=== PATIENT | female | born 1935 | race Caucasian/White ===

== ENCOUNTER 2016-07-03 11:21 | Inpatient (IN) | payer MEDICARE, OTHER ==
[~2016-07-03] VITALS: Ht 172.7 cm; Wt 68.0 kg
[~2016-07-03 11:21] MED LIST: ALBU1.25 NEB; AMIO200T2 PO; AMIO200T7 PO; ASPI81TA2 PO; ATEN50TA PO; CIPR500T94 PO; CLOP75TA27 PO; ESOM20CA30 PO; FENO48TA16 PO; FERR-26 PO; FLUT1DIS3 IH; FURO-68 PO; HYDR-2666 PO; HYDR200T PO; IPRA3AMP NEB; ISOS30TA4 PO; ISOS60TA PO; METO25TA4 PO; PANT40TA3 PO; POTA20TA12 PO; PRAV20TA PO; PRAV40TA2 PO; PRED20TA PO; ROPI0.5T PO; TRYP30OI2 TP
[2016-07-03] MEDS ORDERED: IPRATRPIUM/ALBUTEROL 0.5/2.5MG 3 ML NEBU. ONE (12:05)
[2016-07-03 12:10] LABS: HCO3 ABG 23 mmol/L (21-28); PCO2 ABG 31 mmHg (35-46); PH ABG 7.49 (7.35-7.45); PO2 ABG 66 mmHg (65-108); SAT O2 ABG 92 % (92-99)
[2016-07-03] MEDS ORDERED: IPRATRPIUM/ALBUTEROL 0.5/2.5MG 3 ML NEBU. NEB ONE (12:15)
[2016-07-03] MEDS ORDERED: PREDNISONE 20 MG TABLET PO ONE (12:15)
--- NOTE | 2016-07-03 12:18 | RAD ---
EXAM: Chest, single view. HISTORY: Chest pain. COMPARISON: 06/26/2016. FINDINGS: A frontal view of the chest is obtained. There is partially consolidated infiltrate within the lateral left lung. A superimposed on diffuse increased interstitial opacity. There is no effusion or pneumothorax. The cardiac silhouette is upper normal in size, a component of which is due to portable technique. There are findings consistent with CABG. IMPRESSION: 1. Partially consolidated lateral left lung infiltrate. Follow-up to confirm resolution. 2. Diffuse increased interstitial opacity suggesting trace congestion superimposed on emphysema.
--- NOTE | 2016-07-03 12:21 | EKG ---
[facility] [address] [place] [address] Test Date: 2016-07-03 Test Time: 11:44:02 Pat Name: MARGO LYNN Department: Room: Gender: F Process Control Tech: : [id number] Requested By: JASE PALMER Order Number: [id number] Reading MD: Erlin River Measurements Intervals [place] Rate: 90 P: -34 TX: 152 QRS: -15 QRSD: 152 T: 20 QT: 414 QTc: 511 Interpretive Statements SR RBBB LEFT AXIS DEVIATION INFERIOR INFARCT Electronically Signed On 07-07-2016 10:33:52 S[employer]OTH [employer] RESURFACER by Erlin River
[2016-07-03 12:24] LABS: CALCIUM 8.4 mg/dL (8.5-10.1); CREATININE 0.9 mg/dL (0.6-1.0); GFR 60.4; POTASSIUM 4.2 mmol/L (3.5-5.1)
[2016-07-03 12:27] LABS: ALBUMIN 2.9 g/dL (3.4-5.0); DIRECT BILIRUBIN 0.5 mg/dL (0.0-0.2)
[2016-07-03] MEDS ORDERED: ONDANSETRON PF 4 MG/2 ML VIAL. IV PRN (12:45)
[2016-07-03 13:01] LABS: BASO # 0.1 x10^3/uL (0.0-0.2); BASO % 0 % (0-3); EOS % 0 % (0-3); HEMATOCRIT 33.6 % (36.0-47.0); LYMPH # 0.1 x10^3/uL (1.0-4.8); LYMPH % 1 % (24-48); MEAN CORPUSCULAR HEMOGLOBIN 21 pg (25-35); MEAN CORPUSCULAR HGB CONC 30 g/dL (31-37); MEAN CORPUSCULAR VOLUME 71 fL (79-100); MONO % 5 % (0-9); NEUT % 95 % (31-73); PLATELET COUNT 239 x10^3/uL (140-400); RED BLOOD COUNT 4.75 x10^6/uL (3.50-5.40); RED CELL DISTRIBUTION WIDTH 17.8 % (11.5-14.5); WHITE BLOOD COUNT 28.6 x10^3/uL (4.0-11.0)
[2016-07-03] MEDS ORDERED: PIP/TAZO PER PHARMACY MC PRN (13:15)
--- NOTE | 2016-07-03 13:24 | PHYS DOC ---
Past Medical History Past Medical History: Bronchitis, CHF, COPD, GERD, Hypertension, [place] Additional Past Medical Histor: EMPHYSEMA Past Surgical History: Appendectomy, Coronary Bypass Surgery, Other Additional Past Surgical Histo: carotid artery cleared out, cardiac stents 2013 , LEFT WRIST SX Alcohol Use: None Drug Use: None Adult General Chief Complaint Chief Complaint: DYSPNEA/RESPIRATOY DISTRESS HPI HPI 81-year-old female presenting to the emergency department today with difficulty breathing. She denies chest pain. Her shortness of breath started today. She was recently hospitalized proximally 4 days ago for COPD exacerbation. She denies nausea vomiting or diaphoresis. She denies productive sputum. Onset today Location lungs Duration intermittent Associated with a cough. Review of Systems Review of Systems ROS negative for chest pain abdominal pain nausea vomiting diaphoresis. All other review of systems is negative unless otherwise noted in history of present illness. Current Medications Current Medications Current Medications Medications (Trade) Dose Ordered Sig/Nancy Start Time Stop Time Status Last Admin Dose Admin Albuterol/ Ipratropium (Duoneb) 3 ml 1X ONCE 07/03/16 12:15 07/03/16 12:16 DC Prednisone (Prednisone) 50 mg 1X ONCE 07/03/16 12:15 07/03/16 12:16 DC 07/03/16 12:45 50 MG Allergies Allergies Allergies Coded Allergies Type Severity Reaction Last Updated Verified morphine Allergy Severe Hives-PREVIOUSLY TOLERATED VICODIN 08/20/14 Yes meperidine Allergy Intermediate Unknown 08/20/14 Yes DALTON Inhibitors Adverse Reaction Mild COUGH 05/07/16 Yes Physical Exam Physical Exam Constitutional: Well developed, well nourished, increased effort of breathing. Nontoxic. HENT: Normocephalic, atraumatic, bilateral external ears normal, oropharynx moist, no oral exudates, nose normal. Eyes: PERRLA, EOMI, conjunctiva normal, no discharge. [] Neck: Normal range of motion, no tenderness, supple, no stridor. Cardiovascular:Heart rate regular rhythm, no murmur [] Lungs & Thorax: Increased wheezing and crackles present bilaterally. Patient's work of breathing is increased. Abdomen: Bowel sounds normal, soft, no tenderness, no masses, no pulsatile masses. Skin: Warm, dry, no erythema, no rash. [] Back: No tenderness, no CVA tenderness. Extremities: No tenderness, no cyanosis, no clubbing, ROM intact, no edema. [] Neurologic: Alert and oriented X 3, normal motor function, normal sensory function, no focal deficits noted. Psychologic: Affect normal, judgement normal, mood normal. [] Current Patient Data Vital Signs Vital Signs Date Time Temp Pulse Resp B/P Pulse Ox O2 Delivery O2 Flow Rate FiO2 07/03/16 12:29 88 20 108/47 94 Nasal Cannula 6 07/03/16 11:27 99.8 99.8 Lab Values Laboratory Tests Test 07/03/16 11:35 07/03/16 12:06 Sodium Level 143mmol/L (136-145) Potassium Level 4.2mmol/L (3.5-5.1) Chloride Level 105mmol/L (98-107) Carbon Dioxide Level 25mmol/L (21-32) Anion Gap 13 (6-14) Blood Urea Nitrogen 28mg/dL (7-20) H Creatinine 0.9mg/dL (0.6-1.0) Estimated GFR (Cockcroft-Gault) 60.4 Glucose Level 104mg/dL (70-99) H Calcium Level 8.4mg/dL (8.5-10.1) L Total Bilirubin 1.0mg/dL (0.2-1.0) Direct Bilirubin 0.5mg/dL (0.0-0.2) H Aspartate Amino Transferase (AST) 59U/L (15-37) H Alanine Aminotransferase (ALT) 63U/L (14-59) H Alkaline Phosphatase 136U/L (46-116) H Troponin I Quantitative 0.088ng/mL (0.000-0.055) VL-Lbq-N-Type Natriuretic Peptide 47230hx/mL (0-449) H Total Protein 6.0g/dL (6.4-8.2) L Albumin 2.9g/dL (3.4-5.0) L Lipase 154U/L (73-393) O2 Saturation 92% (92-99) Arterial Blood pH 7.49 (7.35-7.45) H Arterial Blood pCO2 at Patient Temp 31mmHg (35-46) L Arterial Blood pO2 at Patient Temp 66mmHg (65-108) Arterial Blood HCO3 23mmol/L (21-28) Arterial Blood Base Excess 0mmol/L (-3-3) Laboratory Tests 07/03/16 11:35 EKG EKG [] EKG shows sinus rhythm with a regular rate. [place] is leftward with a right bundle-branch block present. Intervals show prolonged QRS and prolonged QTC. ST segments show appropriate repolarization from right bundle-branch block in lead V2 and V3. Radiology/Procedures Radiology/Procedures [] Chest x-ray shows left lower lung infiltrate. Course & Med Decision Making Course & Med Decision Making Pertinent Labs and Imaging studies reviewed. (See chart for details) 81-year-old female presenting to the emergency department with worsening shortness of breath today. On evaluation the patient had a low-grade temperature regular heart rate. Increased respiratory rate and effort. Increased oxygen requirement. Physical exam showed wheezing bilaterally. Patient was given DuoNeb therapy along with oral steroids. ABG obtained which showed mildly low PaO2 with mildly low Pa CO2. Chest x-ray was suggestive of pneumonia. Otherwise the patient's blood work showed a significant leukocytosis probably secondary to infection but given the amount, we will add on a blood smear. Leukocytosis could be secondary to steroid use in the hospitals well. Hemoglobin mildly low at 10. Chemistry panel shows uremia without elevation in creatinine. ProBNP significantly elevated at 15,000. Troponin just above the reference range of normal of 0.08. Broad-spectrum antibiotics ordered. The patient was then admitted to our hospital for further evaluation workup and care. Dragon Disclaimer Dragon Disclaimer This electronic medical record was generated, in whole or in part, using a voice recognition dictation system. Departure Departure Impression: Primary Impression: Healthcare-associated pneumonia Additional Impressions: COPD exacerbation Hypoxia Disposition: ADMITTED INPATIENT Admitting Physician: Ama Boswell Condition: STABLE Referrals: AMA BOSWELL MD (PCP) Problem Qualifiers JASE PALMER MD Jul 03, 2016 13:24
[2016-07-03] MEDS: PIPERACILLIN/TAZOBACTAM 4.5 GM in IV NORMAL SALINE 100ML 100 ML IV SCH ×2 (13:30→18:00)
[2016-07-03] MEDS ORDERED: VANCOMYCIN 1.75 GM in IV NORMAL SALINE 500ML BAG 500 ML IV ONE (14:00)
[2016-07-03 14:15] VITALS: BP 116/45
[2016-07-03] MEDS ORDERED: PRED20TA PO (14:32)
[2016-07-03] MEDS ORDERED: ROPI0.5T PO (14:32)
--- NOTE | 2016-07-03 14:41 | PDOC ---
Provider Note Provider Note [id number] acute on chronic resp fail ae copd pneumonia acute chf abx, steroid, bronchodilator, ? cardiology consult LIDA TANG MD Jul 03, 2016 14:41
[2016-07-03] MEDS ORDERED: ENOXAPARIN 40 MG/0.4 ML DISP.SYRIN. SQ SCH (15:00)
[2016-07-03 15:01] VITALS: BP 116/45
--- NOTE | 2016-07-03 15:10 | CONS ---
DATE OF CONSULTATION: 07/03/2016 REASON FOR CONSULTATION: I was asked to see this 81-year-old lady for acute on chronic respiratory failure, pneumonia, acute exacerbation of COPD. HISTORY OF PRESENT ILLNESS: She does have a history of 100-pack year smoking, stopped smoking about 20 years ago. She is on oxygen continuously. She was discharged from the hospital on Wednesday. She was here for acute exacerbation of COPD. Today is Wednesday. She was started to have increased shortness of breath and cough. She denies any pain. She is not able to cough up her sputum. She has nasal congestion. She denies gastroesophageal reflux symptoms or diarrhea. PAST MEDICAL HISTORY: COPD, chronic respiratory failure, CHF, gastroesophageal reflux disease, hypertension, and coronary artery disease. ALLERGIES: MORPHINE, MEPERIDINE, DALTON INHIBITOR. MEDICATIONS: Currently she is on Zosyn, DuoNeb, and vancomycin. SOCIAL HISTORY: History of 100-pack year smoking; stopped smoking 20 years ago. FAMILY HISTORY: There is no history of lung disease. REVIEW OF SYSTEMS: As mentioned as above, other systems otherwise negative. PHYSICAL EXAMINATION: VITAL SIGNS: Her O2 saturation on 6 liters of oxygen is 96%, respiratory rate 20, heart rate 88, and blood pressure 108/47. HEENT: Normocephalic, atraumatic. Pupils are equal, round, reactive to light. Throat is clear. Nose is clear. NECK: There is no JVD, lymphadenopathy or thyromegaly. CARDIOVASCULAR: Regular rate and rhythm. PMI is nondisplaced. CHEST: Inspection is normal. LUNGS: There are bibasilar crackles and expiratory wheezing. ABDOMEN: Soft. Bowel sounds are good. There is no mass. EXTREMITIES: There is no edema. LYMPHATICS: There was no lymphadenopathy. SKIN: Chronic changes. NEUROLOGIC: Alert and oriented x 3. LABORATORY DATA: I have reviewed the following lab data: Chest x-ray shows bilateral hyperinflation. There is a consolidation in the lateral left lung, which was not there on 06/26. WBC is 28.6, hemoglobin 10, and platelets 239. Sodium 143, potassium 4.2, chloride 105, CO2 25, glucose 104, BUN 28, creatinine 0.9, total bilirubin 0.5. AST is 59, ALT 63, alkaline phosphatase 136. BNP is 15,156. Troponin is 0.08. IMPRESSION: 1. Acute on chronic hypoxemic respiratory failure, multifactorial in etiology. 2. Abnormal chest x-ray. 3. Pneumonia. 4. Acute exacerbation of chronic obstructive pulmonary disease. 5. Acute diastolic congestive heart failure. 6. Leukocytosis. 7. Gastroesophageal reflux disease. 8. Coronary artery disease. PLAN AND RECOMMENDATIONS: 1. Titrate FiO2 to keep O2 saturation 92%. 2. Continue vancomycin and Zosyn. 3. Start prednisone 40 mg daily. She may require Solu-Medrol. 4. Bronchodilator. 5. Inhaled corticosteroid. 6. Lovenox for DVT prophylaxis. 7. Stress ulcer prophylaxis. 8. Monitor respiratory status very closely. 9. Continue not smoking. 10. Influenza A and B, legionella and Strep pneumoniae antigen. Thank you very much for allowing me to participate in care of this very nice lady. The findings and recommendations were discussed with the patient and RN. I have answered all of the patient's questions. She understood and agreed to proceed with the plan. LIDA TANG M.D. : TK/isai JOB#: [id number] / [id number]
[2016-07-03 15:14] LABS: HYPOCHROMIA MOD; PLT ESTIMATE ADEQUATE (ADEQUATE)
[2016-07-03 15:15] LABS: ANISOCYTOSIS SLIGHT; MICROCYTOSIS MOD
[2016-07-03] MEDS: IPRATRPIUM/ALBUTEROL 0.5/2.5MG 3 ML NEBU. NEB SCH ×2 (15:16→19:28)
[2016-07-03] MEDS: PANTOPRAZOLE 40 MG TABLET. PO SCH (15:53)
[2016-07-03 17:33] LABS: OBC FLU VALID
[2016-07-03 19:23] VITALS: BP 119/52
[2016-07-03] MEDS: BUDESONIDE 0.5 MG/2 ML NEBU NEB SCH (19:28)
[2016-07-03] MEDS: VANCOMYCIN PER PHARMACY MC PRN (20:06)
[2016-07-03 23:23] VITALS: BP 116/60
[2016-07-04] MEDS: PIPERACILLIN/TAZOBACTAM 4.5 GM in IV NORMAL SALINE 100ML 100 ML IV SCH ×4 (00:04→18:44)
[2016-07-04] MEDS: PROMETH/CODEINE 6.25/10MG 5 ML SYRUP. PO PRN ×2 (00:04→21:25)
[2016-07-04 02:55] VITALS: BP 116/36
[2016-07-04 05:31] LABS: BASO # 0.1 x10^3/uL (0.0-0.2); BASO % 0 % (0-3); EOS % 0 % (0-3); HEMATOCRIT 31.8 % (36.0-47.0); HEMOGLOBIN 9.4 g/dL (12.0-15.5); LYMPH # 0.2 x10^3/uL (1.0-4.8); LYMPH % 1 % (24-48); MEAN CORPUSCULAR HEMOGLOBIN 21 pg (25-35); MEAN CORPUSCULAR HGB CONC 29 g/dL (31-37); MEAN CORPUSCULAR VOLUME 72 fL (79-100); MONO % 3 % (0-9); NEUT % 96 % (31-73); PLATELET COUNT 188 x10^3/uL (140-400); RED BLOOD COUNT 4.41 x10^6/uL (3.50-5.40); RED CELL DISTRIBUTION WIDTH 17.9 % (11.5-14.5); WHITE BLOOD COUNT 23.2 x10^3/uL (4.0-11.0)
[2016-07-04 06:37] LABS: CALCIUM 8.1 mg/dL (8.5-10.1); CREATININE 0.9 mg/dL (0.6-1.0); GFR 60.4; POTASSIUM 3.8 mmol/L (3.5-5.1)
[2016-07-04 07:34] VITALS: BP 110/45
[2016-07-04] MEDS: BUDESONIDE 0.5 MG/2 ML NEBU NEB SCH ×2 (07:49→19:40)
[2016-07-04] MEDS: IPRATRPIUM/ALBUTEROL 0.5/2.5MG 3 ML NEBU. NEB SCH ×5 (07:49→19:39)
[2016-07-04] MEDS: PANTOPRAZOLE 40 MG TABLET. PO SCH (08:02)
[2016-07-04] MEDS ORDERED: NON FORMULARY ITEM (Fluticasone/Salmeterol (Advair 250-50 Diskus) 1 PUFF) IH SCH (09:00)
--- NOTE | 2016-07-04 09:03 | PDOC ---
PULMONARY PROGRESS NOTES Subjective has sob, cough, better no sputum, has nasal congestion, no pain Vitals Vital Signs Date Time Temp Pulse Resp B/P Pulse Ox O2 Delivery O2 Flow Rate FiO2 07/04/16 07:51 95 Nasal Cannula 5.0 07/04/16 07:34 97.7 71 18 110/45 97.7 Comments ros as above, other sys otherwise neg General: Alert, No acute distress HEENT: Other (nc at perrl) Lungs: Crackles Cardiovascular: S1, S2 Abdomen: Soft, Non-tender, Other (no mass) Neuro Exam: Alert Extremities: No Edema Skin: Warm Labs Laboratory Tests Test 07/03/16 11:35 07/03/16 12:06 07/03/16 12:52 07/03/16 16:30 Sodium Level 143mmol/L (136-145) Potassium Level 4.2mmol/L (3.5-5.1) Chloride Level 105mmol/L (98-107) Carbon Dioxide Level 25mmol/L (21-32) Anion Gap 13 (6-14) Blood Urea Nitrogen 28mg/dL (7-20) Creatinine 0.9mg/dL (0.6-1.0) Estimated GFR (Cockcroft-Gault) 60.4 Glucose Level 104mg/dL (70-99) Calcium Level 8.4mg/dL (8.5-10.1) Total Bilirubin 1.0mg/dL (0.2-1.0) Direct Bilirubin 0.5mg/dL (0.0-0.2) Aspartate Amino Transf (AST/SGOT) 59U/L (15-37) Alanine Aminotransferase (ALT/SGPT) 63U/L (14-59) Alkaline Phosphatase 136U/L (46-116) Troponin I Quantitative 0.088ng/mL (0.000-0.055) JO-Ggu-E-Type Natriuretic Peptide 90960rj/mL (0-449) Total Protein 6.0g/dL (6.4-8.2) Albumin 2.9g/dL (3.4-5.0) Lipase 154U/L (73-393) O2 Saturation 92% (92-99) Arterial Blood pH 7.49 (7.35-7.45) Arterial Blood pCO2 at Patient Temp 31mmHg (35-46) Arterial Blood pO2 at Patient Temp 66mmHg (65-108) Arterial Blood HCO3 23mmol/L (21-28) Arterial Blood Base Excess 0mmol/L (-3-3) White Blood Count 28.6x10^3/uL (4.0-11.0) Red Blood Count 4.75x10^6/uL (3.50-5.40) Hemoglobin 10.0g/dL (12.0-15.5) Hematocrit 33.6% (36.0-47.0) Mean Corpuscular Volume 71fL (79-100) Mean Corpuscular Hemoglobin 21pg (25-35) Mean Corpuscular Hemoglobin Concent 30g/dL (31-37) Red Cell Distribution Width 17.8% (11.5-14.5) Platelet Count 239x10^3/uL (140-400) Neutrophils (%) (Auto) 95% (31-73) Lymphocytes (%) (Auto) 1% (24-48) Monocytes (%) (Auto) 5% (0-9) Eosinophils (%) (Auto) 0% (0-3) Basophils (%) (Auto) 0% (0-3) Neutrophils # (Auto) 27.1x10^3uL (1.8-7.7) Lymphocytes # (Auto) 0.1x10^3/uL (1.0-4.8) Monocytes # (Auto) 1.3x10^3/uL (0.0-1.1) Eosinophils # (Auto) 0.0x10^3/uL (0.0-0.7) Basophils # (Auto) 0.1x10^3/uL (0.0-0.2) Segmented Neutrophils % 95% (35-66) Lymphocytes % 1% (24-48) Monocytes % 4% (0-10) Platelet Estimate Adequate (ADEQUATE) Hypochromasia Mod Anisocytosis Slight Microcytosis Mod Influenza Type A Antigen Negative (NEGATIVE) Influenza Type B Antigen Negative (NEGATIVE) Test 07/03/16 18:34 07/04/16 05:00 Troponin I Quantitative 0.079ng/mL (0.000-0.055) 0.073ng/mL (0.000-0.055) White Blood Count 23.2x10^3/uL (4.0-11.0) Red Blood Count 4.41x10^6/uL (3.50-5.40) Hemoglobin 9.4g/dL (12.0-15.5) Hematocrit 31.8% (36.0-47.0) Mean Corpuscular Volume 72fL (79-100) Mean Corpuscular Hemoglobin 21pg (25-35) Mean Corpuscular Hemoglobin Concent 29g/dL (31-37) Red Cell Distribution Width 17.9% (11.5-14.5) Platelet Count 188x10^3/uL (140-400) Neutrophils (%) (Auto) 96% (31-73) Lymphocytes (%) (Auto) 1% (24-48) Monocytes (%) (Auto) 3% (0-9) Eosinophils (%) (Auto) 0% (0-3) Basophils (%) (Auto) 0% (0-3) Neutrophils # (Auto) 22.4x10^3uL (1.8-7.7) Lymphocytes # (Auto) 0.2x10^3/uL (1.0-4.8) Monocytes # (Auto) 0.6x10^3/uL (0.0-1.1) Eosinophils # (Auto) 0.0x10^3/uL (0.0-0.7) Basophils # (Auto) 0.1x10^3/uL (0.0-0.2) Sodium Level 144mmol/L (136-145) Potassium Level 3.8mmol/L (3.5-5.1) Chloride Level 103mmol/L (98-107) Carbon Dioxide Level 23mmol/L (21-32) Anion Gap 18 (6-14) Blood Urea Nitrogen 24mg/dL (7-20) Creatinine 0.9mg/dL (0.6-1.0) Estimated GFR (Cockcroft-Gault) 60.4 Glucose Level 83mg/dL (70-99) Calcium Level 8.1mg/dL (8.5-10.1) Laboratory Tests Test 07/03/16 11:35 07/03/16 12:06 07/03/16 12:52 07/03/16 16:30 Sodium Level 143mmol/L (136-145) Potassium Level 4.2mmol/L (3.5-5.1) Chloride Level 105mmol/L (98-107) Carbon Dioxide Level 25mmol/L (21-32) Anion Gap 13 (6-14) Blood Urea Nitrogen 28mg/dL (7-20) Creatinine 0.9mg/dL (0.6-1.0) Estimated GFR (Cockcroft-Gault) 60.4 Glucose Level 104mg/dL (70-99) Calcium Level 8.4mg/dL (8.5-10.1) Total Bilirubin 1.0mg/dL (0.2-1.0) Direct Bilirubin 0.5mg/dL (0.0-0.2) Aspartate Amino Transf (AST/SGOT) 59U/L (15-37) Alanine Aminotransferase (ALT/SGPT) 63U/L (14-59) Alkaline Phosphatase 136U/L (46-116) Troponin I Quantitative 0.088ng/mL (0.000-0.055) PB-Uuc-I-Type Natriuretic Peptide 84369bk/mL (0-449) Total Protein 6.0g/dL (6.4-8.2) Albumin 2.9g/dL (3.4-5.0) Lipase 154U/L (73-393) O2 Saturation 92% (92-99) Arterial Blood pH 7.49 (7.35-7.45) Arterial Blood pCO2 at Patient Temp 31mmHg (35-46) Arterial Blood pO2 at Patient Temp 66mmHg (65-108) Arterial Blood HCO3 23mmol/L (21-28) Arterial Blood Base Excess 0mmol/L (-3-3) White Blood Count 28.6x10^3/uL (4.0-11.0) Red Blood Count 4.75x10^6/uL (3.50-5.40) Hemoglobin 10.0g/dL (12.0-15.5) Hematocrit 33.6% (36.0-47.0) Mean Corpuscular Volume 71fL (79-100) Mean Corpuscular Hemoglobin 21pg (25-35) Mean Corpuscular Hemoglobin Concent 30g/dL (31-37) Red Cell Distribution Width 17.8% (11.5-14.5) Platelet Count 239x10^3/uL (140-400) Neutrophils (%) (Auto) 95% (31-73) Lymphocytes (%) (Auto) 1% (24-48) Monocytes (%) (Auto) 5% (0-9) Eosinophils (%) (Auto) 0% (0-3) Basophils (%) (Auto) 0% (0-3) Neutrophils # (Auto) 27.1x10^3uL (1.8-7.7) Lymphocytes # (Auto) 0.1x10^3/uL (1.0-4.8) Monocytes # (Auto) 1.3x10^3/uL (0.0-1.1) Eosinophils # (Auto) 0.0x10^3/uL (0.0-0.7) Basophils # (Auto) 0.1x10^3/uL (0.0-0.2) Segmented Neutrophils % 95% (35-66) Lymphocytes % 1% (24-48) Monocytes % 4% (0-10) Platelet Estimate Adequate (ADEQUATE) Hypochromasia Mod Anisocytosis Slight Microcytosis Mod Influenza Type A Antigen Negative (NEGATIVE) Influenza Type B Antigen Negative (NEGATIVE) Test 07/03/16 18:34 07/04/16 05:00 Troponin I Quantitative 0.079ng/mL (0.000-0.055) 0.073ng/mL (0.000-0.055) White Blood Count 23.2x10^3/uL (4.0-11.0) Red Blood Count 4.41x10^6/uL (3.50-5.40) Hemoglobin 9.4g/dL (12.0-15.5) Hematocrit 31.8% (36.0-47.0) Mean Corpuscular Volume 72fL (79-100) Mean Corpuscular Hemoglobin 21pg (25-35) Mean Corpuscular Hemoglobin Concent 29g/dL (31-37) Red Cell Distribution Width 17.9% (11.5-14.5) Platelet Count 188x10^3/uL (140-400) Neutrophils (%) (Auto) 96% (31-73) Lymphocytes (%) (Auto) 1% (24-48) Monocytes (%) (Auto) 3% (0-9) Eosinophils (%) (Auto) 0% (0-3) Basophils (%) (Auto) 0% (0-3) Neutrophils # (Auto) 22.4x10^3uL (1.8-7.7) Lymphocytes # (Auto) 0.2x10^3/uL (1.0-4.8) Monocytes # (Auto) 0.6x10^3/uL (0.0-1.1) Eosinophils # (Auto) 0.0x10^3/uL (0.0-0.7) Basophils # (Auto) 0.1x10^3/uL (0.0-0.2) Sodium Level 144mmol/L (136-145) Potassium Level 3.8mmol/L (3.5-5.1) Chloride Level 103mmol/L (98-107) Carbon Dioxide Level 23mmol/L (21-32) Anion Gap 18 (6-14) Blood Urea Nitrogen 24mg/dL (7-20) Creatinine 0.9mg/dL (0.6-1.0) Estimated GFR (Cockcroft-Gault) 60.4 Glucose Level 83mg/dL (70-99) Calcium Level 8.1mg/dL (8.5-10.1) Medications Active Scripts Medications Dose Route/Sig Days Date Category Prednisone 20 Mg Tablet 1 Tab PO DAILY 9 06/30/16 Rx Advair 250-50 Diskus (Fluticasone/Salmeterol) 1 Each Disk.w.dev 1 Puff IH BID 06/26/16 Reported Requip (Ropinirole Hcl) 0.5 Mg Tablet 1 Tab PO QHS 06/26/16 Reported Albuterol Sulfate Neb Soln (Albuterol Sulfate) 1.25 Mg/3 Ml Vial.neb 1 Vial NEB Q4HRS 05/11/16 Rx Isosorbide Mononitrate Er (Isosorbide Mononitrate) 30 Mg Tab.er.24h 1 Tab PO DAILY 05/08/16 Rx Duoneb 0.5-3(2.5) Mg/3 Ml (Albuterol/Ipratropium) 3 Ml Ampul.neb 3 Ml NEB QID 05/08/16 Rx Pravastatin Sodium 40 Mg Tablet 1 Tab PO DAILY 05/07/16 Reported Potassium Chloride 20 Meq Tab.er.prt 1 Tab PO DAILY 08/20/14 Reported Lasix (Furosemide) 40 Mg Tablet 20 Mg PO DAILY 08/20/14 Reported Pacerone (Amiodarone Hcl) 200 Mg Tablet 200 Mg PO DAILY07 08/16/14 Reported Metoprolol Tartrate 25 Mg Tablet 12.5 Tab PO BID 05/21/14 Reported Hydrocodone-Apap 5-325 (Hydrocodone Bit/Acetaminophen) 1 Each Tablet 1 Tab PO PRN Q4HRS PRN 05/21/14 Reported Plavix (Clopidogrel Bisulfate) 75 Mg Tablet 75 Mg PO DAILYWBKFT 04/19/14 Rx Nexium 24Hr (Esomeprazole Magnesium) 20 Mg Capsule.dr 40 Mg PO 04/16/14 Reported Plaquenil (Hydroxychloroquine Sulfate) 200 Mg Tablet 200 Mg PO BID 04/16/14 Reported Comments cxr reviewed, l infilt Impression . IMPRESSION: 1. Acute on chronic hypoxemic respiratory failure, multifactorial in etiology. 2. Abnormal chest x-ray. 3. Pneumonia. 4. Acute exacerbation of chronic obstructive pulmonary disease. 5. Acute diastolic congestive heart failure. 6. Leukocytosis. 7. Gastroesophageal reflux disease. 8. Coronary artery disease. 9. allergic rhinitis Plan . PLAN AND RECOMMENDATIONS: 1. Titrate FiO2 to keep O2 saturation 92%. 2. Continue vancomycin and Zosyn. 3. prednisone 40 mg daily. 4. Bronchodilator. 5. Inhaled corticosteroid. 6. Lovenox for DVT prophylaxis. 7. Stress ulcer prophylaxis. 8. Monitor respiratory status very closely. 9. Continue not smoking. 10. Influenza A and B neg . fu legionella and Strep pneumoniae antigen. 11. add singulair. Thank you very much for allowing me to participate in care of this very nice lady. The findings and recommendations were discussed with the patient and RN. I have answered all of the patient's questions. She understood and agreed to proceed with the plan. LIDA TANG MD Jul 04, 2016 09:03
[2016-07-04] MEDS ORDERED: ENOXAPARIN 40 MG/0.4 ML DISP.SYRIN. SQ SCH (09:15)
[2016-07-04] MEDS ORDERED: PANTOPRAZOLE 40 MG TABLET. PO SCH (09:30)
[2016-07-04] MEDS ORDERED: FUROSEMIDE 40 MG TABLET PO SCH (09:30)
[2016-07-04] MEDS ORDERED: rOPINIRole 0.25 MG TABLET. PO SCH (09:30)
[2016-07-04] MEDS: AMIODARONE HCL 200 MG TABLET PO SCH (09:52)
[2016-07-04] MEDS: CLOPIDOGREL BISULFATE 75 MG TABLET PO SCH (09:53)
[2016-07-04] MEDS: ISOSORBIDE MONONITRATE ER 30 MG TAB.ER.24H PO SCH (09:53)
[2016-07-04] MEDS: ASPIRIN 81 MG TAB.CHEW PO SCH (09:53)
[2016-07-04] MEDS: POTASSIUM CHLORIDE 20 MEQ TABLET.ER. PO SCH (09:53)
[2016-07-04] MEDS: rOPINIRole 0.25 MG TABLET. PO SCH ×2 (09:53→21:25)
[2016-07-04] MEDS: HYDROXYCHLOROQUINE 200 MG TABLET PO SCH ×2 (09:54→21:25)
[2016-07-04] MEDS: METOPROLOL TART IMMED RELEASE 25 MG TABLET PO SCH ×2 (09:54→21:26)
--- NOTE | 2016-07-04 10:58 | HP ---
ADMIT DATE: 07/03/2016 CHIEF COMPLAINT: Coughing. HISTORY OF PRESENT ILLNESS AND HOSPITAL COURSE: This patient is a 81-year-old female who was discharged from hospital approximately 3 days prior to readmission. She has chronic ischemic cardiomyopathy with congestive heart failure as well as ongoing COPD, chronically on oxygen. She was admitted for dkddz-nq-dsftuep respiratory failure, previously with exacerbation of COPD as well as exacerbation of underlying systolic congestive heart failure. She was stabilized upon discharge. On June 30, began having increasing coughing the day after discharge coughing more productive sputum and came back to the Emergency Room with increasing oxygen need and shortness of breath. She was found to have a new left lung infiltrate consistent with pneumonia. She also had a very high white count as well as increasing troponin and high BNP to the constellation of symptoms. She was readmitted for treatment of pneumonia, exacerbation of COPD and progressive congestive heart failure with upnvm-cy-pzamhur respiratory failure. PAST MEDICAL HISTORY: Significant for: 1. COPD. 2. Chronic systolic heart failure. 3. Hypertension. 4. Coronary artery disease. 5. Gastroesophageal reflux disease. PAST SURGICAL HISTORY: Significant for appendectomy, cholecystectomy, cardiac stents and coronary artery bypass graft. Right carotid endarterectomy as well as ORIF, left wrist. ALLERGIES: THE PATIENT EXHIBITS ALLERGIES TO DALTON INHIBITORS, DEMEROL AND MORPHINE. SOCIAL HISTORY: The patient is a former smoker, but quit many years ago. She does not use alcohol. She has excellent support from her sisters. REVIEW OF SYSTEMS: Stabilized upon discharge, but began having increasing symptoms of cough subsequently increasing shortness of breath over the next 2 days while at home. The patient denies any diarrhea, nausea, vomiting or significant chest pain. She does have increasing shortness of breath, productive cough. She denies night sweats or fever. FAMILY HISTORY: Noncontributory. PHYSICAL EXAMINATION: GENERAL: This is a well-nourished, moderately ill appearing female who is in no apparent distress on my exam. HEENT: Benign. NECK: Supple. CARDIAC: Regular rate and rhythm with a grade 2/6 systolic ejection murmur. LUNGS: Clear anteriorly with decreased breath sounds in the bases and crackles noted on the left. ABDOMEN: Soft and nontender without masses. EXTREMITIES: 2+ pulses with 1+ edema. NEUROLOGIC: Showed no unilateral findings. ASSESSMENT: 1. Nqmoc-ku-dvxzvtu respiratory failure. 2. Lobar pneumonia, possibly hospital required. 3. Gzztu-ia-nzvurhn systolic congestive heart failure. 4. Acute exacerbation of chronic obstructive pulmonary disease. 5. Hypertension. 6. Coronary artery disease. 7. High cholesterol. PLAN: To proceed with pulmonary toilet in the form of breathing treatments and oxygen support and antibiotics. We will consult Cardiology for continued increased diuresis if needed for congestive heart failure as well as pulmonary for ongoing COPD. To proceed with PT and OT modalities when stable and monitor the patient's progression through hospital stay. LAURA FLORES MD DR: NINO/isai JOB#: [id number] / [id number]
[2016-07-04 11:56] VITALS: BP 109/64
[2016-07-04] MEDS: VANCOMYCIN PER PHARMACY MC PRN (13:31)
--- NOTE | 2016-07-04 14:54 | PDOC2 ---
CONSULT Date of Consult Date of Consult DATE: 07/04/16 TIME: 14:49 Reason for Consult Reason for Consult: Dyspnea Referring Physician Referring Physician: Dr. Mcdaniel Identification/Chief Complaint Chief Complaint Dyspnea History of Present Illness Reason for Visit: This patient is a pleasant 81-year-old lady that I have known for several years. She has a known history of coronary artery disease and CHF as well as advanced COPD. I have also believed that she may have some scleroderma but I am not sure if this has been worked up in the past. The patient went home after having an episode of COPD exacerbation and was discharged on Wednesday now she comes back again with shortness of breath. She is on home O2 24 hours a day. Presently the patient denies having any chest pains, she denies having any palpitations, her only complaint is the dyspnea. Past Medical History Cardiovascular: CAD, CHF, HTN, HI, Hyperlipidemia Pulmonary: COPD Past Surgical History Past Surgical History: Appendectomy, CABG, Cataract Removal, Other Current Problem List Problem List Problems Medical Problems: (1) Acute and chronic respiratory failure with hypoxia Status: Acute (2) COPD exacerbation Status: Acute (3) Healthcare-associated pneumonia Status: Acute (4) Hypoxia Status: Acute Current Medications Current Medications Current Medications Albuterol/ Ipratropium (Duoneb) 3 ml STK-MED ONCE .ROUTE ; Start 07/03/16 at 12: 05; Stop 07/03/16 at 12:06; Status DC Albuterol/ Ipratropium (Duoneb) 3 ml 1X ONCE NEB ; Start 07/03/16 at 12:15; Stop 07/03/16 at 12:16; Status DC Prednisone (Prednisone) 50 mg 1X ONCE PO Last administered on 07/03/16t 12:45 ; Start 07/03/16 at 12:15; Stop 07/03/16 at 12:16; Status DC Ondansetron HCl (Zofran) 4 mg PRN Q8HRS PRN IV NAUSEA/VOMITING; Start 07/03/16 at 12:45; Stop 07/04/16 at 12:44; Status DC Albuterol/ Ipratropium (Duoneb) 3 ml RTQID NEB Last administered on 07/04/16 11:38; Start 07/03/16 at 16:00; Stop 07/04/16 at 13:28; Status DC Vancomycin HCl (Vanco Per Pharmacy) 1 each PRN DAILY PRN MC SEE COMMENTS Last administered on 07/04/16 13:31; Start 07/03/16 at 13:15 Piperacillin Sod/ Tazobactam Sod 1 each 1 each PRN DAILY PRN MC SEE COMMENTS; Start 07/03/16 at 13:15 Vancomycin HCl 1.75 gm/Sodium Chloride 500 ml @ 250 mls/hr 1X ONCE IV Last administered on 07/03/16 15:54; Start 07/03/16 at 14:00; Stop 07/03/16 at 15:59 ; Status DC Piperacillin Sod/ Tazobactam Sod/ Sodium Chloride (Zosyn/Iv Sodium Chloride 0.9 % 100ml) 100 ml @ 200 mls/hr Q6HRS IV Last administered on 07/04/16 11:32; Start 07/03/16 at 13:30 Budesonide (Pulmicort) 0.5 mg RTBID NEB Last administered on 07/04/16 07:49; Start 07/03/16 at 20:00 Pantoprazole Sodium (Protonix) 40 mg DAILYAC PO Last administered on 07/04/16 08:02; Start 07/03/16 at 14:30 Enoxaparin Sodium 40 mg 40 mg Q24H SQ Last administered on 07/03/16 15:53; Start 07/03/16 at 15:00; Stop 07/04/16 at 09:59; Status DC Vancomycin HCl/ Sodium Chloride (Iv Sodium Chloride 0.9% 250ml) 250 ml @ 250 mls/hr Q24H IV ; Start 07/04/16 at 16:00 Vancomycin HCl 1 each 1X ONCE MC ; Start 07/05/16 at 15:30; Stop 07/05/16 at 15 :31 Promethazine HCl/ Codeine (Phenergan With Codeine) 5 ml PRN Q4HRS PRN PO COUGH Last administered on 07/04/16 00:04; Start 07/03/16 at 23:45 Amiodarone HCl (Cordarone) 200 mg DAILY07 PO Last administered on 07/04/16 09: 52; Start 07/04/16 at 09:30 Aspirin (Children'S Aspirin) 81 mg DAILYWBKFT PO Last administered on 09:53; Start 07/04/16 at 09:30 Clopidogrel Bisulfate (Plavix) 75 mg DAILYWBKFT PO Last administered on 09:53; Start 07/04/16 at 09:30 Furosemide (Lasix) 20 mg DAILY PO Last administered on 07/04/16 09:54; Start 07/04/16 at 09:30; Stop 07/04/16 at 14:08; Status DC Hydroxychloroquine Sulfate (Plaquenil) 200 mg BID PO Last administered on 09:54; Start 07/04/16 at 09:30 Albuterol/ Ipratropium (Duoneb) 3 ml RTQID NEB ; Start 07/04/16 at 12:00 Isosorbide Mononitrate (Imdur) 30 mg DAILY PO Last administered on 07/04/16 09 :53; Start 07/04/16 at 09:30 Metoprolol Tartrate (Lopressor) 12.5 mg BID PO Last administered on 07/04/16 09:54; Start 07/04/16 at 09:30 Potassium Chloride (Klor-Con) 20 meq DAILYWBKFT PO Last administered on 09:53; Start 07/04/16 at 09:30 Non-Formulary Medication 1 puff BID IH ; Start 07/04/16 at 09:00; Status UNV Atorvastatin Calcium (Lipitor) 10 mg QHS PO ; Start 07/04/16 at 21:00 Ropinirole HCl (Requip) 0.5 mg DAILY PO ; Start 07/04/16 at 09:30; Stop at 09:30; Status DC Non-Formulary Medication 1 tab QHS PO ; Start 07/04/16 at 21:00; Status UNV Pantoprazole Sodium (Protonix) 40 mg DAILYAC PO ; Start 07/04/16 at 09:30; Status UNV Montelukast Sodium (Singulair) 10 mg QHS PO ; Start 07/04/16 at 21:00 Enoxaparin Sodium (Lovenox 40mg Syringe) 40 mg Q24H SQ ; Start 07/04/16 at 09:15 ; Status UNV Ropinirole HCl (Requip) 0.5 mg BID PO Last administered on 1/14/17at 09:53; Start 07/04/16 at 09:30 Furosemide (Lasix) 40 mg DAILY IVP ; Start 07/05/16 at 09:00 Active Scripts Active Isosorbide Mononitrate Er (Isosorbide Mononitrate) 30 Mg Tab.er.24h 1 Tab PO DAILY Duoneb 0.5-3(2.5) Mg/3 Ml (Albuterol/Ipratropium) 3 Ml Ampul.neb 3 Ml NEB QID Plavix (Clopidogrel Bisulfate) 75 Mg Tablet 75 Mg PO DAILYWBKFT Reported Requip (Ropinirole Hcl) 0.5 Mg Tablet 0.5 Mg PO DAILY Prednisone 20 Mg Tablet 1 Tab PO DAILY Advair 250-50 Diskus (Fluticasone/Salmeterol) 1 Each Disk.w.dev 1 Puff IH BID Requip (Ropinirole Hcl) 0.5 Mg Tablet 1 Tab PO QHS Pravastatin Sodium 40 Mg Tablet 1 Tab PO DAILY Potassium Chloride 20 Meq Tab.er.prt 1 Tab PO DAILY Lasix (Furosemide) 40 Mg Tablet 20 Mg PO DAILY Pacerone (Amiodarone Hcl) 200 Mg Tablet 200 Mg PO DAILY07 Metoprolol Tartrate 25 Mg Tablet 12.5 Tab PO BID Nexium 24Hr (Esomeprazole Magnesium) 20 Mg Capsule.dr 40 Mg PO Aspirin 81 Mg Tab.chew 1 Tab PO DAILY Plaquenil (Hydroxychloroquine Sulfate) 200 Mg Tablet 200 Mg PO BID Allergies Allergies: Coded Allergies: morphine (Verified Allergy, Severe, Hives-PREVIOUSLY TOLERATED VICODIN, 08/20/14) meperidine (Verified Allergy, Intermediate, Unknown, 08/20/14) DALTON Inhibitors (Verified Adverse Reaction, Mild, COUGH, 05/07/16) Physical Exam Physical Exam The patient is in mild distress at the time of the examination. H EENT pupils are reactive, oral mucosa dry, Neck is supple no JVD. Lungs breath sounds are markedly decreased, wheezing overmedicate feels. No Rales. Heart regular rate and rhythm S1-S2 no S3 no S4. Abdomen is soft bowel sounds are present. Extremities 1+ edema. Vitals VITALS Vital Signs Date Time Temp Pulse Resp B/P Pulse Ox O2 Delivery O2 Flow Rate FiO2 07/04/16 11:56 97.7 74 18 109/64 94 Nasal Cannula 6.0 97.7 Labs Labs Laboratory Tests Test 07/03/16 11:35 07/03/16 12:06 07/03/16 12:52 07/03/16 16:30 Sodium Level 143mmol/L (136-145) Potassium Level 4.2mmol/L (3.5-5.1) Chloride Level 105mmol/L (98-107) Carbon Dioxide Level 25mmol/L (21-32) Anion Gap 13 (6-14) Blood Urea Nitrogen 28mg/dL (7-20) Creatinine 0.9mg/dL (0.6-1.0) Estimated GFR (Cockcroft-Gault) 60.4 Glucose Level 104mg/dL (70-99) Calcium Level 8.4mg/dL (8.5-10.1) Total Bilirubin 1.0mg/dL (0.2-1.0) Direct Bilirubin 0.5mg/dL (0.0-0.2) Aspartate Amino Transf (AST/SGOT) 59U/L (15-37) Alanine Aminotransferase (ALT/SGPT) 63U/L (14-59) Alkaline Phosphatase 136U/L (46-116) Troponin I Quantitative 0.088ng/mL (0.000-0.055) OM-Mkd-Q-Type Natriuretic Peptide 54381eq/mL (0-449) Total Protein 6.0g/dL (6.4-8.2) Albumin 2.9g/dL (3.4-5.0) Lipase 154U/L (73-393) O2 Saturation 92% (92-99) Arterial Blood pH 7.49 (7.35-7.45) Arterial Blood pCO2 at Patient Temp 31mmHg (35-46) Arterial Blood pO2 at Patient Temp 66mmHg (65-108) Arterial Blood HCO3 23mmol/L (21-28) Arterial Blood Base Excess 0mmol/L (-3-3) White Blood Count 28.6x10^3/uL (4.0-11.0) Red Blood Count 4.75x10^6/uL (3.50-5.40) Hemoglobin 10.0g/dL (12.0-15.5) Hematocrit 33.6% (36.0-47.0) Mean Corpuscular Volume 71fL (79-100) Mean Corpuscular Hemoglobin 21pg (25-35) Mean Corpuscular Hemoglobin Concent 30g/dL (31-37) Red Cell Distribution Width 17.8% (11.5-14.5) Platelet Count 239x10^3/uL (140-400) Neutrophils (%) (Auto) 95% (31-73) Lymphocytes (%) (Auto) 1% (24-48) Monocytes (%) (Auto) 5% (0-9) Eosinophils (%) (Auto) 0% (0-3) Basophils (%) (Auto) 0% (0-3) Neutrophils # (Auto) 27.1x10^3uL (1.8-7.7) Lymphocytes # (Auto) 0.1x10^3/uL (1.0-4.8) Monocytes # (Auto) 1.3x10^3/uL (0.0-1.1) Eosinophils # (Auto) 0.0x10^3/uL (0.0-0.7) Basophils # (Auto) 0.1x10^3/uL (0.0-0.2) Segmented Neutrophils % 95% (35-66) Lymphocytes % 1% (24-48) Monocytes % 4% (0-10) Platelet Estimate Adequate (ADEQUATE) Hypochromasia Mod Anisocytosis Slight Microcytosis Mod Influenza Type A Antigen Negative (NEGATIVE) Influenza Type B Antigen Negative (NEGATIVE) Test 07/03/16 18:34 07/04/16 05:00 Troponin I Quantitative 0.079ng/mL (0.000-0.055) 0.073ng/mL (0.000-0.055) White Blood Count 23.2x10^3/uL (4.0-11.0) Red Blood Count 4.41x10^6/uL (3.50-5.40) Hemoglobin 9.4g/dL (12.0-15.5) Hematocrit 31.8% (36.0-47.0) Mean Corpuscular Volume 72fL (79-100) Mean Corpuscular Hemoglobin 21pg (25-35) Mean Corpuscular Hemoglobin Concent 29g/dL (31-37) Red Cell Distribution Width 17.9% (11.5-14.5) Platelet Count 188x10^3/uL (140-400) Neutrophils (%) (Auto) 96% (31-73) Lymphocytes (%) (Auto) 1% (24-48) Monocytes (%) (Auto) 3% (0-9) Eosinophils (%) (Auto) 0% (0-3) Basophils (%) (Auto) 0% (0-3) Neutrophils # (Auto) 22.4x10^3uL (1.8-7.7) Lymphocytes # (Auto) 0.2x10^3/uL (1.0-4.8) Monocytes # (Auto) 0.6x10^3/uL (0.0-1.1) Eosinophils # (Auto) 0.0x10^3/uL (0.0-0.7) Basophils # (Auto) 0.1x10^3/uL (0.0-0.2) Sodium Level 144mmol/L (136-145) Potassium Level 3.8mmol/L (3.5-5.1) Chloride Level 103mmol/L (98-107) Carbon Dioxide Level 23mmol/L (21-32) Anion Gap 18 (6-14) Blood Urea Nitrogen 24mg/dL (7-20) Creatinine 0.9mg/dL (0.6-1.0) Estimated GFR (Cockcroft-Gault) 60.4 Glucose Level 83mg/dL (70-99) Calcium Level 8.1mg/dL (8.5-10.1) Laboratory Tests Test 07/03/16 16:30 07/03/16 18:34 07/04/16 05:00 Influenza Type A Antigen Negative (NEGATIVE) Influenza Type B Antigen Negative (NEGATIVE) Troponin I Quantitative 0.079ng/mL (0.000-0.055) 0.073ng/mL (0.000-0.055) White Blood Count 23.2x10^3/uL (4.0-11.0) Red Blood Count 4.41x10^6/uL (3.50-5.40) Hemoglobin 9.4g/dL (12.0-15.5) Hematocrit 31.8% (36.0-47.0) Mean Corpuscular Volume 72fL (79-100) Mean Corpuscular Hemoglobin 21pg (25-35) Mean Corpuscular Hemoglobin Concent 29g/dL (31-37) Red Cell Distribution Width 17.9% (11.5-14.5) Platelet Count 188x10^3/uL (140-400) Neutrophils (%) (Auto) 96% (31-73) Lymphocytes (%) (Auto) 1% (24-48) Monocytes (%) (Auto) 3% (0-9) Eosinophils (%) (Auto) 0% (0-3) Basophils (%) (Auto) 0% (0-3) Neutrophils # (Auto) 22.4x10^3uL (1.8-7.7) Lymphocytes # (Auto) 0.2x10^3/uL (1.0-4.8) Monocytes # (Auto) 0.6x10^3/uL (0.0-1.1) Eosinophils # (Auto) 0.0x10^3/uL (0.0-0.7) Basophils # (Auto) 0.1x10^3/uL (0.0-0.2) Sodium Level 144mmol/L (136-145) Potassium Level 3.8mmol/L (3.5-5.1) Chloride Level 103mmol/L (98-107) Carbon Dioxide Level 23mmol/L (21-32) Anion Gap 18 (6-14) Blood Urea Nitrogen 24mg/dL (7-20) Creatinine 0.9mg/dL (0.6-1.0) Estimated GFR (Cockcroft-Gault) 60.4 Glucose Level 83mg/dL (70-99) Calcium Level 8.1mg/dL (8.5-10.1) Assessment/Plan Assessment/Plan This patient comes in with an acute exacerbation of COPD. I agree with the present treatment plan but I am concerned with her situation and the fact that in the past she has become decompensated cardiac-isaac following exacerbations of COPD. We will be happy to follow the patient with you. Thank you very much for asking us to participate in the care of this patient IRMA PARDO MD Jul 04, 2016 14:54
[2016-07-04 15:15] VITALS: BP 123/53
[2016-07-04] MEDS ORDERED: VANCOMYCIN 1 GM in IV NORMAL SALINE 250ML 250 ML IV SCH (16:00)
[2016-07-04 18:13] LABS: SPECIMEN SOURCE Urine (.)
[2016-07-04 19:00] VITALS: BP 126/37
[2016-07-04] MEDS ORDERED: ROPINIROLE HCL PO SCH (21:00)
[2016-07-04] MEDS: MONTELUKAST SODIUM 10 MG TABLET. PO SCH (21:25)
[2016-07-04] MEDS: ATORVASTATIN CALCIUM 10 MG TABLET. PO SCH (21:26)
[2016-07-04 23:00] VITALS: BP 130/36
[2016-07-05] MEDS: PROMETH/CODEINE 6.25/10MG 5 ML SYRUP. PO PRN ×2 (01:18→21:32)
[2016-07-05] MEDS: PIPERACILLIN/TAZOBACTAM 4.5 GM in IV NORMAL SALINE 100ML 100 ML IV SCH ×4 (01:19→17:46)
[2016-07-05 03:00] VITALS: BP 126/45
[2016-07-05 05:14] LABS: BASO % 0 % (0-3); EOS % 0 % (0-3); HEMATOCRIT 30.1 % (36.0-47.0); HEMOGLOBIN 9.2 g/dL (12.0-15.5); LYMPH # 0.6 x10^3/uL (1.0-4.8); LYMPH % 3 % (24-48); MEAN CORPUSCULAR HEMOGLOBIN 21 pg (25-35); MEAN CORPUSCULAR HGB CONC 31 g/dL (31-37); MEAN CORPUSCULAR VOLUME 70 fL (79-100); MONO % 8 % (0-9); NEUT % 89 % (31-73); PLATELET COUNT 189 x10^3/uL (140-400); RED CELL DISTRIBUTION WIDTH 17.3 % (11.5-14.5); WHITE BLOOD COUNT 16.9 x10^3/uL (4.0-11.0)
[2016-07-05 05:45] LABS: CALCIUM 7.5 mg/dL (8.5-10.1); CREATININE 0.9 mg/dL (0.6-1.0); GFR 60.4; POTASSIUM 3.5 mmol/L (3.5-5.1)
[2016-07-05 07:22] VITALS: BP 130/65
--- NOTE | 2016-07-05 07:23 | ACF ---
Admission Forms Criteria PNEUMONIA, HOSPITAL-ACQUIRED AND ATELECTASIS Clinical Indications for Inpatient Care (Place 'X' for any and all applicable criteria): Ongoing inpatient care may be indicated for hospital-acquired atelectasis or pneumonia[N] with ANY ONE of the following(2)(5)(47)(48)(49): [ ]I. Mechanical ventilation [N] [ ]II. Temperature less than 35 degrees C (95 degrees F) or greater than 39.5 degrees C (103.1 degrees F) [ ]III. Tachypnea (eg, respiratory rate greater than 30 breaths per minute) [ ]IV. Hemodynamic instability [X]V. Respiratory distress [ ]. Significant hypoxemia as indicated by ANY ONE of the following: [ ]a) Previously normal respiratory status with ANY ONE of the following: [ ]i) SaO2 less than 90% or PO2 less than 60 mm Hg (8.0 kPa )) on room air [ ]ii) Oxygen required to keep SaO2 greater than 90% [ ]b) Chronic baseline hypoxemia with significant deterioration (eg, O2 saturation decrease more than 5%) [ ]c) Required supplemental oxygen performable only in acute inpatient setting [ ]VII. Significant hypoventilation as indicated by ANY ONE of the following: [ ]a) Previously normal with PCO2 greater than 42 mm Hg (5.6 kPa) and pH less than 7.35 [ ]b) Documented PCO2 increase greater than 5 mm Hg (0.7 kPa) from disease baseline [ ]VIII.Severe secretion production requiring frequent suctioning Extended stay beyond goal length of stay for primary condition may be needed until ALL of the following are present(28)(29): [ ]a) Microbiologic cause of infection identified and appropriate antibiotic treatment in place, or satisfactory clinical response to empiric antibiotic therapy [ ]b) Hemodynamic stability [ ]c) No requirement for supplemental oxygen performable only in acute inpatient setting [ ]d) Chest tube absent or chest catheter management regimen established for next level of care [ ]e) Suctioning, pulmonary toilet, or other therapy performable at a lower level of care [ ]f) Fever absent, improved, or manageable at lower level of care [ ]g) Medical comorbidities manageable at a lower level of care The original [facility] content created by [employer] has been revised. The portions of the content which have been revised are identified through the use of italic text or in bold, and [facility] has neither reviewed nor approved the modified material. All other unmodified content is copyright [facility] Please see references footnoted in the original [facility] edition 2016 Admission Criteria Met?: Yes ANN QUINTANILLA Jul 05, 2016 07:23
--- NOTE | 2016-07-05 07:40 | PDOC ---
PROGRESS NOTES Subjective Subjective Continues to have slow improvement from pneumonia and COPD. low grade temp noted , WBC declining Objective Objective Vital Signs Date Time Temp Pulse Resp B/P Pulse Ox O2 Delivery O2 Flow Rate FiO2 07/05/16 03:00 97.5 76 18 126/45 95 Nasal Cannula 6.0 97.5 Intake and Output 07/05/16 07:00 Intake Total 1627 ml Output Total 900 ml Balance 727 ml Intake Oral 1627 ml Output Urine Total 900 ml # Bowel Movements 1 Physical Exam Abdomen: Normal bowel sounds Heart: Regular rate Extremities: No edema Lungs: Clear to auscultation, Other (Decreased BS bases) Assessment Assessment Problems Medical Problems: (1) Acute and chronic respiratory failure with hypoxia Status: Acute (2) COPD exacerbation Status: Acute (3) Healthcare-associated pneumonia Status: Acute (4) Hypoxia Status: Acute 1. Nhfto-mn-alquigq respiratory failure. 2. Lobar pneumonia, possibly hospital required. 3. Irzrz-da-oqlumvn systolic congestive heart failure. 4. Acute exacerbation of chronic obstructive pulmonary disease. 5. Hypertension. 6. Coronary artery disease. Plan Plan of Care Continue Pulm Toilet and Antibx PT/OT as able Comment Review of Relevant I have reviewed the following items nam (where applicable) has been applied. Labs Laboratory Tests Test 07/03/16 11:35 07/03/16 12:06 07/03/16 12:52 07/03/16 16:30 Sodium Level 143mmol/L (136-145) Potassium Level 4.2mmol/L (3.5-5.1) Chloride Level 105mmol/L (98-107) Carbon Dioxide Level 25mmol/L (21-32) Anion Gap 13 (6-14) Blood Urea Nitrogen 28mg/dL (7-20) Creatinine 0.9mg/dL (0.6-1.0) Estimated GFR (Cockcroft-Gault) 60.4 Glucose Level 104mg/dL (70-99) Calcium Level 8.4mg/dL (8.5-10.1) Total Bilirubin 1.0mg/dL (0.2-1.0) Direct Bilirubin 0.5mg/dL (0.0-0.2) Aspartate Amino Transf (AST/SGOT) 59U/L (15-37) Alanine Aminotransferase (ALT/SGPT) 63U/L (14-59) Alkaline Phosphatase 136U/L (46-116) Troponin I Quantitative 0.088ng/mL (0.000-0.055) KV-Nau-X-Type Natriuretic Peptide 87212tr/mL (0-449) Total Protein 6.0g/dL (6.4-8.2) Albumin 2.9g/dL (3.4-5.0) Lipase 154U/L (73-393) O2 Saturation 92% (92-99) Arterial Blood pH 7.49 (7.35-7.45) Arterial Blood pCO2 at Patient Temp 31mmHg (35-46) Arterial Blood pO2 at Patient Temp 66mmHg (65-108) Arterial Blood HCO3 23mmol/L (21-28) Arterial Blood Base Excess 0mmol/L (-3-3) White Blood Count 28.6x10^3/uL (4.0-11.0) Red Blood Count 4.75x10^6/uL (3.50-5.40) Hemoglobin 10.0g/dL (12.0-15.5) Hematocrit 33.6% (36.0-47.0) Mean Corpuscular Volume 71fL (79-100) Mean Corpuscular Hemoglobin 21pg (25-35) Mean Corpuscular Hemoglobin Concent 30g/dL (31-37) Red Cell Distribution Width 17.8% (11.5-14.5) Platelet Count 239x10^3/uL (140-400) Neutrophils (%) (Auto) 95% (31-73) Lymphocytes (%) (Auto) 1% (24-48) Monocytes (%) (Auto) 5% (0-9) Eosinophils (%) (Auto) 0% (0-3) Basophils (%) (Auto) 0% (0-3) Neutrophils # (Auto) 27.1x10^3uL (1.8-7.7) Lymphocytes # (Auto) 0.1x10^3/uL (1.0-4.8) Monocytes # (Auto) 1.3x10^3/uL (0.0-1.1) Eosinophils # (Auto) 0.0x10^3/uL (0.0-0.7) Basophils # (Auto) 0.1x10^3/uL (0.0-0.2) Segmented Neutrophils % 95% (35-66) Lymphocytes % 1% (24-48) Monocytes % 4% (0-10) Platelet Estimate Adequate (ADEQUATE) Hypochromasia Mod Anisocytosis Slight Microcytosis Mod Influenza Type A Antigen Negative (NEGATIVE) Influenza Type B Antigen Negative (NEGATIVE) Test 07/03/16 18:10 07/03/16 18:34 07/04/16 05:00 07/05/16 04:14 Body Fluid Culture (LAB) (.) Urine Legionella Antigen Negative (Negative) Streptococcus pneumoniae Antigen Negative (Negative) Organism Identification (LAB) (.) SANDRA Specimen Source Urine (.) Troponin I Quantitative 0.079ng/mL (0.000-0.055) 0.073ng/mL (0.000-0.055) White Blood Count 23.2x10^3/uL (4.0-11.0) 16.9x10^3/uL (4.0-11.0) Red Blood Count 4.41x10^6/uL (3.50-5.40) 4.30x10^6/uL (3.50-5.40) Hemoglobin 9.4g/dL (12.0-15.5) 9.2g/dL (12.0-15.5) Hematocrit 31.8% (36.0-47.0) 30.1% (36.0-47.0) Mean Corpuscular Volume 72fL (79-100) 70fL (79-100) Mean Corpuscular Hemoglobin 21pg (25-35) 21pg (25-35) Mean Corpuscular Hemoglobin Concent 29g/dL (31-37) 31g/dL (31-37) Red Cell Distribution Width 17.9% (11.5-14.5) 17.3% (11.5-14.5) Platelet Count 188x10^3/uL (140-400) 189x10^3/uL (140-400) Neutrophils (%) (Auto) 96% (31-73) 89% (31-73) Lymphocytes (%) (Auto) 1% (24-48) 3% (24-48) Monocytes (%) (Auto) 3% (0-9) 8% (0-9) Eosinophils (%) (Auto) 0% (0-3) 0% (0-3) Basophils (%) (Auto) 0% (0-3) 0% (0-3) Neutrophils # (Auto) 22.4x10^3uL (1.8-7.7) 15.0x10^3uL (1.8-7.7) Lymphocytes # (Auto) 0.2x10^3/uL (1.0-4.8) 0.6x10^3/uL (1.0-4.8) Monocytes # (Auto) 0.6x10^3/uL (0.0-1.1) 1.3x10^3/uL (0.0-1.1) Eosinophils # (Auto) 0.0x10^3/uL (0.0-0.7) 0.0x10^3/uL (0.0-0.7) Basophils # (Auto) 0.1x10^3/uL (0.0-0.2) 0.0x10^3/uL (0.0-0.2) Sodium Level 144mmol/L (136-145) 145mmol/L (136-145) Potassium Level 3.8mmol/L (3.5-5.1) 3.5mmol/L (3.5-5.1) Chloride Level 103mmol/L (98-107) 109mmol/L (98-107) Carbon Dioxide Level 23mmol/L (21-32) 28mmol/L (21-32) Anion Gap 18 (6-14) 8 (6-14) Blood Urea Nitrogen 24mg/dL (7-20) 25mg/dL (7-20) Creatinine 0.9mg/dL (0.6-1.0) 0.9mg/dL (0.6-1.0) Estimated GFR (Cockcroft-Gault) 60.4 60.4 Glucose Level 83mg/dL (70-99) 82mg/dL (70-99) Calcium Level 8.1mg/dL (8.5-10.1) 7.5mg/dL (8.5-10.1) Laboratory Tests Test 07/05/16 04:14 White Blood Count 16.9x10^3/uL (4.0-11.0) Red Blood Count 4.30x10^6/uL (3.50-5.40) Hemoglobin 9.2g/dL (12.0-15.5) Hematocrit 30.1% (36.0-47.0) Mean Corpuscular Volume 70fL (79-100) Mean Corpuscular Hemoglobin 21pg (25-35) Mean Corpuscular Hemoglobin Concent 31g/dL (31-37) Red Cell Distribution Width 17.3% (11.5-14.5) Platelet Count 189x10^3/uL (140-400) Neutrophils (%) (Auto) 89% (31-73) Lymphocytes (%) (Auto) 3% (24-48) Monocytes (%) (Auto) 8% (0-9) Eosinophils (%) (Auto) 0% (0-3) Basophils (%) (Auto) 0% (0-3) Neutrophils # (Auto) 15.0x10^3uL (1.8-7.7) Lymphocytes # (Auto) 0.6x10^3/uL (1.0-4.8) Monocytes # (Auto) 1.3x10^3/uL (0.0-1.1) Eosinophils # (Auto) 0.0x10^3/uL (0.0-0.7) Basophils # (Auto) 0.0x10^3/uL (0.0-0.2) Sodium Level 145mmol/L (136-145) Potassium Level 3.5mmol/L (3.5-5.1) Chloride Level 109mmol/L (98-107) Carbon Dioxide Level 28mmol/L (21-32) Anion Gap 8 (6-14) Blood Urea Nitrogen 25mg/dL (7-20) Creatinine 0.9mg/dL (0.6-1.0) Estimated GFR (Cockcroft-Gault) 60.4 Glucose Level 82mg/dL (70-99) Calcium Level 7.5mg/dL (8.5-10.1) Medications Current Medications Albuterol/ Ipratropium (Duoneb) 3 ml STK-MED ONCE .ROUTE ; Start 07/03/16 at 12: 05; Stop 07/03/16 at 12:06; Status DC Albuterol/ Ipratropium (Duoneb) 3 ml 1X ONCE NEB ; Start 07/03/16 at 12:15; Stop 07/03/16 at 12:16; Status DC Prednisone (Prednisone) 50 mg 1X ONCE PO Last administered on 07/03/16 12:45 ; Start 07/03/16 at 12:15; Stop 07/03/16 at 12:16; Status DC Ondansetron HCl (Zofran) 4 mg PRN Q8HRS PRN IV NAUSEA/VOMITING; Start 07/03/16 at 12:45; Stop 07/04/16 at 12:44; Status DC Albuterol/ Ipratropium (Duoneb) 3 ml RTQID NEB Last administered on 07/04/16 11:38; Start 07/03/16 at 16:00; Stop 07/04/16 at 13:28; Status DC Vancomycin HCl (Vanco Per Pharmacy) 1 each PRN DAILY PRN MC SEE COMMENTS Last administered on 07/04/16 13:31; Start 07/03/16 at 13:15 Piperacillin Sod/ Tazobactam Sod 1 each 1 each PRN DAILY PRN MC SEE COMMENTS; Start 07/03/16 at 13:15 Vancomycin HCl 1.75 gm/Sodium Chloride 500 ml @ 250 mls/hr 1X ONCE IV Last administered on 07/03/16 15:54; Start 07/03/16 at 14:00; Stop 07/03/16 at 15:59 ; Status DC Piperacillin Sod/ Tazobactam Sod/ Sodium Chloride (Zosyn/Iv Sodium Chloride 0.9 % 100ml) 100 ml @ 200 mls/hr Q6HRS IV Last administered on 07/05/16 06:13; Start 07/03/16 at 13:30 Budesonide (Pulmicort) 0.5 mg RTBID NEB Last administered on 07/04/16 19:40; Start 07/03/16 at 20:00 Pantoprazole Sodium (Protonix) 40 mg DAILYAC PO Last administered on 07/04/16 08:02; Start 07/03/16 at 14:30 Enoxaparin Sodium 40 mg 40 mg Q24H SQ Last administered on 07/03/16 15:53; Start 07/03/16 at 15:00; Stop 07/04/16 at 09:59; Status DC Vancomycin HCl/ Sodium Chloride (Iv Sodium Chloride 0.9% 250ml) 250 ml @ 250 mls/hr Q24H IV Last administered on 07/04/16 16:52; Start 07/04/16 at 16:00 Vancomycin HCl 1 each 1X ONCE MC ; Start 07/05/16 at 15:30; Stop 07/05/16 at 15 :31 Promethazine HCl/ Codeine (Phenergan With Codeine) 5 ml PRN Q4HRS PRN PO COUGH Last administered on 07/05/16 01:18; Start 07/03/16 at 23:45 Amiodarone HCl (Cordarone) 200 mg DAILY07 PO Last administered on 07/04/16 09: 52; Start 07/04/16 at 09:30 Aspirin (Children'S Aspirin) 81 mg DAILYWBKFT PO Last administered on 09:53; Start 07/04/16 at 09:30 Clopidogrel Bisulfate (Plavix) 75 mg DAILYWBKFT PO Last administered on 09:53; Start 07/04/16 at 09:30 Furosemide (Lasix) 20 mg DAILY PO Last administered on 07/04/16 09:54; Start 07/04/16 at 09:30; Stop 07/04/16 at 14:08; Status DC Hydroxychloroquine Sulfate (Plaquenil) 200 mg BID PO Last administered on 21:25; Start 07/04/16 at 09:30 Albuterol/ Ipratropium (Duoneb) 3 ml RTQID NEB Last administered on 07/04/16 19:39; Start 07/04/16 at 12:00 Isosorbide Mononitrate (Imdur) 30 mg DAILY PO Last administered on 07/04/16 09 :53; Start 07/04/16 at 09:30 Metoprolol Tartrate (Lopressor) 12.5 mg BID PO Last administered on 07/04/16 21:26; Start 07/04/16 at 09:30 Potassium Chloride (Klor-Con) 20 meq DAILYWBKFT PO Last administered on 09:53; Start 07/04/16 at 09:30 Non-Formulary Medication 1 puff BID IH ; Start 07/04/16 at 09:00; Status UNV Atorvastatin Calcium (Lipitor) 10 mg QHS PO Last administered on 07/04/16 21: 26; Start 07/04/16 at 21:00 Ropinirole HCl (Requip) 0.5 mg DAILY PO ; Start 07/04/16 at 09:30; Stop at 09:30; Status DC Non-Formulary Medication 1 tab QHS PO ; Start 07/04/16 at 21:00; Status UNV Pantoprazole Sodium (Protonix) 40 mg DAILYAC PO ; Start 07/04/16 at 09:30; Status UNV Montelukast Sodium (Singulair) 10 mg QHS PO Last administered on 07/04/16 21: 25; Start 07/04/16 at 21:00 Enoxaparin Sodium (Lovenox 40mg Syringe) 40 mg Q24H SQ ; Start 07/04/16 at 09:15 ; Status UNV Ropinirole HCl (Requip) 0.5 mg BID PO Last administered on 07/04/16 21:25; Start 07/04/16 at 09:30 Furosemide (Lasix) 40 mg DAILY IVP ; Start 07/05/16 at 09:00 Active Scripts Active Isosorbide Mononitrate Er (Isosorbide Mononitrate) 30 Mg Tab.er.24h 1 Tab PO DAILY Duoneb 0.5-3(2.5) Mg/3 Ml (Albuterol/Ipratropium) 3 Ml Ampul.neb 3 Ml NEB QID Plavix (Clopidogrel Bisulfate) 75 Mg Tablet 75 Mg PO DAILYWBKFT Reported Requip (Ropinirole Hcl) 0.5 Mg Tablet 0.5 Mg PO DAILY Prednisone 20 Mg Tablet 1 Tab PO DAILY Advair 250-50 Diskus (Fluticasone/Salmeterol) 1 Each Disk.w.dev 1 Puff IH BID Requip (Ropinirole Hcl) 0.5 Mg Tablet 1 Tab PO QHS Pravastatin Sodium 40 Mg Tablet 1 Tab PO DAILY Potassium Chloride 20 Meq Tab.er.prt 1 Tab PO DAILY Lasix (Furosemide) 40 Mg Tablet 20 Mg PO DAILY Pacerone (Amiodarone Hcl) 200 Mg Tablet 200 Mg PO DAILY07 Metoprolol Tartrate 25 Mg Tablet 12.5 Tab PO BID Nexium 24Hr (Esomeprazole Magnesium) 20 Mg Capsule.dr 40 Mg PO Aspirin 81 Mg Tab.chew 1 Tab PO DAILY Plaquenil (Hydroxychloroquine Sulfate) 200 Mg Tablet 200 Mg PO BID Vitals/I & O Vital Sign - Last 24 Hours 07/04/16 07/04/16 07/04/16 07/04/16 07:51 08:01 09:52 09:53 Pulse 71 71 B/P 110/45 110/45 Pulse Ox 95 O2 Delivery Nasal Cannula Nasal Cannula O2 Flow Rate 5.0 5.0 07/04/16 07/04/16 07/04/16 07/04/16 09:54 11:39 11:56 15:15 Temp 97.7 97.3 97.7 97.3 Pulse 71 74 80 Resp 18 18 B/P 110/45 109/64 123/53 Pulse Ox 94 96 O2 Delivery Nasal Cannula Nasal Cannula Nasal Cannula O2 Flow Rate 5.0 6.0 6.0 07/04/16 07/04/16 07/04/16 07/04/16 15:42 19:00 19:41 20:00 Temp 99.5 99.5 Pulse 81 Resp 18 B/P 126/37 Pulse Ox 98 94 98 O2 Delivery Nasal Cannula Nasal Cannula Nasal Cannula Nasal Cannula O2 Flow Rate 5.0 6.0 5.0 5.0 07/04/16 07/04/16 07/05/16 21:26 23:00 03:00 Temp 100.2 97.5 100.2 97.5 Pulse 81 75 76 Resp 17 18 B/P 126/37 130/36 126/45 Pulse Ox 94 95 O2 Delivery Nasal Cannula Nasal Cannula O2 Flow Rate 6.0 6.0 Intake and Output 07/04/16 07/04/16 07/05/16 15:00 23:00 07:00 Intake Total 477 ml 550 ml 600 ml Output Total 600 ml 300 ml Balance 477 ml -50 ml 300 ml LAURA FLORES MD Jul 05, 2016 07:39
[2016-07-05] MEDS: IPRATRPIUM/ALBUTEROL 0.5/2.5MG 3 ML NEBU. NEB SCH ×4 (07:44→18:59)
[2016-07-05] MEDS: BUDESONIDE 0.5 MG/2 ML NEBU NEB SCH ×2 (07:44→18:59)
[2016-07-05] MEDS: POTASSIUM CHLORIDE 20 MEQ TABLET.ER. PO SCH (08:31)
[2016-07-05] MEDS: rOPINIRole 0.25 MG TABLET. PO SCH ×2 (08:31→21:33)
[2016-07-05] MEDS: ISOSORBIDE MONONITRATE ER 30 MG TAB.ER.24H PO SCH (08:32)
[2016-07-05] MEDS: METOPROLOL TART IMMED RELEASE 25 MG TABLET PO SCH ×2 (08:32→21:34)
[2016-07-05] MEDS: CLOPIDOGREL BISULFATE 75 MG TABLET PO SCH (08:32)
[2016-07-05] MEDS: ASPIRIN 81 MG TAB.CHEW PO SCH (08:32)
[2016-07-05] MEDS: HYDROXYCHLOROQUINE 200 MG TABLET PO SCH ×2 (08:32→21:33)
[2016-07-05] MEDS: PANTOPRAZOLE 40 MG TABLET. PO SCH (08:33)
[2016-07-05] MEDS: AMIODARONE HCL 200 MG TABLET PO SCH (08:33)
[2016-07-05] MEDS: FUROSEMIDE 40 MG/4 ML VIAL IVP SCH (08:33)
--- NOTE | 2016-07-05 10:14 | PDOC ---
PULMONARY PROGRESS NOTES Subjective has sob, cough, better no sputum, has nasal congestion better, no pain Vitals Vital Signs Date Time Temp Pulse Resp B/P Pulse Ox O2 Delivery O2 Flow Rate FiO2 07/05/16 08:33 77 130/65 07/05/16 07:46 96 Nasal Cannula 5.0 07/05/16 07:22 97.7 18 97.7 Comments ros as above, other sys otherwise neg General: Alert, No acute distress HEENT: Other (nc at perrl) Lungs: Crackles Cardiovascular: S1, S2 Abdomen: Soft, Non-tender, Other (no mass) Neuro Exam: Alert Extremities: No Edema Skin: Warm Labs Laboratory Tests Test 07/03/16 11:35 07/03/16 12:06 07/03/16 12:52 07/03/16 16:30 Sodium Level 143mmol/L (136-145) Potassium Level 4.2mmol/L (3.5-5.1) Chloride Level 105mmol/L (98-107) Carbon Dioxide Level 25mmol/L (21-32) Anion Gap 13 (6-14) Blood Urea Nitrogen 28mg/dL (7-20) Creatinine 0.9mg/dL (0.6-1.0) Estimated GFR (Cockcroft-Gault) 60.4 Glucose Level 104mg/dL (70-99) Calcium Level 8.4mg/dL (8.5-10.1) Total Bilirubin 1.0mg/dL (0.2-1.0) Direct Bilirubin 0.5mg/dL (0.0-0.2) Aspartate Amino Transf (AST/SGOT) 59U/L (15-37) Alanine Aminotransferase (ALT/SGPT) 63U/L (14-59) Alkaline Phosphatase 136U/L (46-116) Troponin I Quantitative 0.088ng/mL (0.000-0.055) DX-Lfy-X-Type Natriuretic Peptide 20436ww/mL (0-449) Total Protein 6.0g/dL (6.4-8.2) Albumin 2.9g/dL (3.4-5.0) Lipase 154U/L (73-393) O2 Saturation 92% (92-99) Arterial Blood pH 7.49 (7.35-7.45) Arterial Blood pCO2 at Patient Temp 31mmHg (35-46) Arterial Blood pO2 at Patient Temp 66mmHg (65-108) Arterial Blood HCO3 23mmol/L (21-28) Arterial Blood Base Excess 0mmol/L (-3-3) White Blood Count 28.6x10^3/uL (4.0-11.0) Red Blood Count 4.75x10^6/uL (3.50-5.40) Hemoglobin 10.0g/dL (12.0-15.5) Hematocrit 33.6% (36.0-47.0) Mean Corpuscular Volume 71fL (79-100) Mean Corpuscular Hemoglobin 21pg (25-35) Mean Corpuscular Hemoglobin Concent 30g/dL (31-37) Red Cell Distribution Width 17.8% (11.5-14.5) Platelet Count 239x10^3/uL (140-400) Neutrophils (%) (Auto) 95% (31-73) Lymphocytes (%) (Auto) 1% (24-48) Monocytes (%) (Auto) 5% (0-9) Eosinophils (%) (Auto) 0% (0-3) Basophils (%) (Auto) 0% (0-3) Neutrophils # (Auto) 27.1x10^3uL (1.8-7.7) Lymphocytes # (Auto) 0.1x10^3/uL (1.0-4.8) Monocytes # (Auto) 1.3x10^3/uL (0.0-1.1) Eosinophils # (Auto) 0.0x10^3/uL (0.0-0.7) Basophils # (Auto) 0.1x10^3/uL (0.0-0.2) Segmented Neutrophils % 95% (35-66) Lymphocytes % 1% (24-48) Monocytes % 4% (0-10) Platelet Estimate Adequate (ADEQUATE) Hypochromasia Mod Anisocytosis Slight Microcytosis Mod Influenza Type A Antigen Negative (NEGATIVE) Influenza Type B Antigen Negative (NEGATIVE) Test 07/03/16 18:10 07/03/16 18:34 07/04/16 05:00 07/05/16 04:14 Body Fluid Culture (LAB) (.) Urine Legionella Antigen Negative (Negative) Streptococcus pneumoniae Antigen Negative (Negative) Organism Identification (LAB) (.) SANDRA Specimen Source Urine (.) Troponin I Quantitative 0.079ng/mL (0.000-0.055) 0.073ng/mL (0.000-0.055) White Blood Count 23.2x10^3/uL (4.0-11.0) 16.9x10^3/uL (4.0-11.0) Red Blood Count 4.41x10^6/uL (3.50-5.40) 4.30x10^6/uL (3.50-5.40) Hemoglobin 9.4g/dL (12.0-15.5) 9.2g/dL (12.0-15.5) Hematocrit 31.8% (36.0-47.0) 30.1% (36.0-47.0) Mean Corpuscular Volume 72fL (79-100) 70fL (79-100) Mean Corpuscular Hemoglobin 21pg (25-35) 21pg (25-35) Mean Corpuscular Hemoglobin Concent 29g/dL (31-37) 31g/dL (31-37) Red Cell Distribution Width 17.9% (11.5-14.5) 17.3% (11.5-14.5) Platelet Count 188x10^3/uL (140-400) 189x10^3/uL (140-400) Neutrophils (%) (Auto) 96% (31-73) 89% (31-73) Lymphocytes (%) (Auto) 1% (24-48) 3% (24-48) Monocytes (%) (Auto) 3% (0-9) 8% (0-9) Eosinophils (%) (Auto) 0% (0-3) 0% (0-3) Basophils (%) (Auto) 0% (0-3) 0% (0-3) Neutrophils # (Auto) 22.4x10^3uL (1.8-7.7) 15.0x10^3uL (1.8-7.7) Lymphocytes # (Auto) 0.2x10^3/uL (1.0-4.8) 0.6x10^3/uL (1.0-4.8) Monocytes # (Auto) 0.6x10^3/uL (0.0-1.1) 1.3x10^3/uL (0.0-1.1) Eosinophils # (Auto) 0.0x10^3/uL (0.0-0.7) 0.0x10^3/uL (0.0-0.7) Basophils # (Auto) 0.1x10^3/uL (0.0-0.2) 0.0x10^3/uL (0.0-0.2) Sodium Level 144mmol/L (136-145) 145mmol/L (136-145) Potassium Level 3.8mmol/L (3.5-5.1) 3.5mmol/L (3.5-5.1) Chloride Level 103mmol/L (98-107) 109mmol/L (98-107) Carbon Dioxide Level 23mmol/L (21-32) 28mmol/L (21-32) Anion Gap 18 (6-14) 8 (6-14) Blood Urea Nitrogen 24mg/dL (7-20) 25mg/dL (7-20) Creatinine 0.9mg/dL (0.6-1.0) 0.9mg/dL (0.6-1.0) Estimated GFR (Cockcroft-Gault) 60.4 60.4 Glucose Level 83mg/dL (70-99) 82mg/dL (70-99) Calcium Level 8.1mg/dL (8.5-10.1) 7.5mg/dL (8.5-10.1) Laboratory Tests Test 07/05/16 04:14 White Blood Count 16.9x10^3/uL (4.0-11.0) Red Blood Count 4.30x10^6/uL (3.50-5.40) Hemoglobin 9.2g/dL (12.0-15.5) Hematocrit 30.1% (36.0-47.0) Mean Corpuscular Volume 70fL (79-100) Mean Corpuscular Hemoglobin 21pg (25-35) Mean Corpuscular Hemoglobin Concent 31g/dL (31-37) Red Cell Distribution Width 17.3% (11.5-14.5) Platelet Count 189x10^3/uL (140-400) Neutrophils (%) (Auto) 89% (31-73) Lymphocytes (%) (Auto) 3% (24-48) Monocytes (%) (Auto) 8% (0-9) Eosinophils (%) (Auto) 0% (0-3) Basophils (%) (Auto) 0% (0-3) Neutrophils # (Auto) 15.0x10^3uL (1.8-7.7) Lymphocytes # (Auto) 0.6x10^3/uL (1.0-4.8) Monocytes # (Auto) 1.3x10^3/uL (0.0-1.1) Eosinophils # (Auto) 0.0x10^3/uL (0.0-0.7) Basophils # (Auto) 0.0x10^3/uL (0.0-0.2) Sodium Level 145mmol/L (136-145) Potassium Level 3.5mmol/L (3.5-5.1) Chloride Level 109mmol/L (98-107) Carbon Dioxide Level 28mmol/L (21-32) Anion Gap 8 (6-14) Blood Urea Nitrogen 25mg/dL (7-20) Creatinine 0.9mg/dL (0.6-1.0) Estimated GFR (Cockcroft-Gault) 60.4 Glucose Level 82mg/dL (70-99) Calcium Level 7.5mg/dL (8.5-10.1) Medications Active Scripts Medications Dose Route/Sig Days Date Category Prednisone 20 Mg Tablet 1 Tab PO DAILY 9 06/30/16 Rx Advair 250-50 Diskus (Fluticasone/Salmeterol) 1 Each Disk.w.dev 1 Puff IH BID 06/26/16 Reported Requip (Ropinirole Hcl) 0.5 Mg Tablet 1 Tab PO QHS 06/26/16 Reported Albuterol Sulfate Neb Soln (Albuterol Sulfate) 1.25 Mg/3 Ml Vial.neb 1 Vial NEB Q4HRS 05/11/16 Rx Isosorbide Mononitrate Er (Isosorbide Mononitrate) 30 Mg Tab.er.24h 1 Tab PO DAILY 05/08/16 Rx Duoneb 0.5-3(2.5) Mg/3 Ml (Albuterol/Ipratropium) 3 Ml Ampul.neb 3 Ml NEB QID 05/08/16 Rx Pravastatin Sodium 40 Mg Tablet 1 Tab PO DAILY 05/07/16 Reported Potassium Chloride 20 Meq Tab.er.prt 1 Tab PO DAILY 08/20/14 Reported Lasix (Furosemide) 40 Mg Tablet 20 Mg PO DAILY 08/20/14 Reported Pacerone (Amiodarone Hcl) 200 Mg Tablet 200 Mg PO DAILY07 08/16/14 Reported Metoprolol Tartrate 25 Mg Tablet 12.5 Tab PO BID 05/21/14 Reported Hydrocodone-Apap 5-325 (Hydrocodone Bit/Acetaminophen) 1 Each Tablet 1 Tab PO PRN Q4HRS PRN 05/21/14 Reported Plavix (Clopidogrel Bisulfate) 75 Mg Tablet 75 Mg PO DAILYWBKFT 04/19/14 Rx Nexium 24Hr (Esomeprazole Magnesium) 20 Mg Capsule.dr 40 Mg PO 04/16/14 Reported Plaquenil (Hydroxychloroquine Sulfate) 200 Mg Tablet 200 Mg PO BID 04/16/14 Reported Comments cxr reviewed, l infilt Impression . IMPRESSION: 1. Acute on chronic hypoxemic respiratory failure, multifactorial in etiology. 2. Abnormal chest x-ray. 3. Pneumonia. 4. Acute exacerbation of chronic obstructive pulmonary disease. 5. Acute diastolic congestive heart failure. 6. Leukocytosis. 7. Gastroesophageal reflux disease. 8. Coronary artery disease. 9. allergic rhinitis Plan . PLAN AND RECOMMENDATIONS: 1. Titrate FiO2 to keep O2 saturation 92%. 2. Continue vancomycin and Zosyn. 3. prednisone was stopped. 4. Bronchodilator. 5. Inhaled corticosteroid. 6. Lovenox for DVT prophylaxis. 7. Stress ulcer prophylaxis. 8. Monitor respiratory status very closely. 9. Continue not smoking. 10. Influenza A and B neg . fu legionella and Strep pneumoniae antigen. 11. singulair. Thank you very much for allowing me to participate in care of this very nice lady. The findings and recommendations were discussed with the patient and RN. I have answered all of the patient's questions. She understood and agreed to proceed with the plan. LIDA TANG MD Jul 05, 2016 10:14
[2016-07-05 11:16] VITALS: BP 112/73
--- NOTE | 2016-07-05 15:32 | PDOC ---
Provider Note Provider Note COVERING FOR dR. PARDO. nO INCREASE PN SOB SINUS RHUTHM RATE 80/MIN. LUNGS CLEAR. DEAN CAMEJO MD Jul 05, 2016 15:32
[2016-07-05 15:51] VITALS: BP 134/61
[2016-07-05] MEDS: VANCOMYCIN 1 GM in IV NORMAL SALINE 250ML 250 ML IV SCH (16:00)
[2016-07-05] MEDS: VANCOMYCIN PER PHARMACY MC PRN (16:05)
[2016-07-05 19:00] VITALS: BP 130/64
[2016-07-05] MEDS: ATORVASTATIN CALCIUM 10 MG TABLET. PO SCH (21:33)
[2016-07-05] MEDS: MONTELUKAST SODIUM 10 MG TABLET. PO SCH (21:33)
[2016-07-05 22:32] VITALS: BP 114/46
[2016-07-06] MEDS: PIPERACILLIN/TAZOBACTAM 4.5 GM in IV NORMAL SALINE 100ML 100 ML IV SCH ×4 (01:41→18:36)
[2016-07-06 03:00] VITALS: BP 120/51
[2016-07-06] MEDS: PROMETH/CODEINE 6.25/10MG 5 ML SYRUP. PO PRN ×2 (05:01→20:56)
[2016-07-06] MEDS: VANCOMYCIN 1 GM in IV NORMAL SALINE 250ML 250 ML IV SCH ×2 (05:01→15:42)
[2016-07-06 07:00] VITALS: BP 122/50
[2016-07-06] MEDS: BUDESONIDE 0.5 MG/2 ML NEBU NEB SCH ×2 (07:27→19:50)
[2016-07-06] MEDS: IPRATRPIUM/ALBUTEROL 0.5/2.5MG 3 ML NEBU. NEB SCH ×4 (07:27→19:50)
[2016-07-06] MEDS: ASPIRIN 81 MG TAB.CHEW PO SCH (08:40)
[2016-07-06] MEDS: CLOPIDOGREL BISULFATE 75 MG TABLET PO SCH (08:40)
[2016-07-06] MEDS: PANTOPRAZOLE 40 MG TABLET. PO SCH (08:40)
[2016-07-06] MEDS: POTASSIUM CHLORIDE 20 MEQ TABLET.ER. PO SCH (08:41)
[2016-07-06] MEDS: HYDROXYCHLOROQUINE 200 MG TABLET PO SCH ×2 (08:41→20:50)
--- NOTE | 2016-07-06 08:43 | PDOC ---
PROGRESS NOTES Subjective Subjective Patient reports breathing is some better than at admission, still having MARQUES. Objective Objective Vital Signs Date Time Temp Pulse Resp B/P Pulse Ox O2 Delivery O2 Flow Rate FiO2 07/06/16 07:27 96 Nasal Cannula 5.0 07/06/16 03:00 98.1 67 20 120/51 98.1 Intake and Output 07/06/16 07:00 Intake Total 2134 ml Balance 2134 ml Intake Oral 1684 ml IV Total 450 ml # Voids 7 Physical Exam Abdomen: Normal bowel sounds, Soft, No tenderness Heart: Regular rate Extremities: No edema General: Alert, Oriented X3, No acute distress Lungs: Other (BS moderately decreased throughout, no wheezes heard) Assessment Assessment Problems Medical Problems: (1) Acute and chronic respiratory failure with hypoxia Status: Acute (2) COPD exacerbation Status: Acute (3) Healthcare-associated pneumonia Status: Acute (4) Hypoxia Status: Acute Plan Plan of Care 1. Acute on chronic respiratory failure with pneumonia - stable, continue present tx including abx, O2 and inhaled steroids. Continue PT and OT to help maintain mobility. 2. HTN - controlled, continue present meds. 3. CHF - mild systolic - stable, continue home meds. 4. scleroderma - stable, continue her usual meds for this. Comment Review of Relevant I have reviewed the following items nam (where applicable) has been applied. Labs Laboratory Tests Test 07/05/16 04:14 07/05/16 15:15 White Blood Count 16.9x10^3/uL (4.0-11.0) Red Blood Count 4.30x10^6/uL (3.50-5.40) Hemoglobin 9.2g/dL (12.0-15.5) Hematocrit 30.1% (36.0-47.0) Mean Corpuscular Volume 70fL (79-100) Mean Corpuscular Hemoglobin 21pg (25-35) Mean Corpuscular Hemoglobin Concent 31g/dL (31-37) Red Cell Distribution Width 17.3% (11.5-14.5) Platelet Count 189x10^3/uL (140-400) Neutrophils (%) (Auto) 89% (31-73) Lymphocytes (%) (Auto) 3% (24-48) Monocytes (%) (Auto) 8% (0-9) Eosinophils (%) (Auto) 0% (0-3) Basophils (%) (Auto) 0% (0-3) Neutrophils # (Auto) 15.0x10^3uL (1.8-7.7) Lymphocytes # (Auto) 0.6x10^3/uL (1.0-4.8) Monocytes # (Auto) 1.3x10^3/uL (0.0-1.1) Eosinophils # (Auto) 0.0x10^3/uL (0.0-0.7) Basophils # (Auto) 0.0x10^3/uL (0.0-0.2) Sodium Level 145mmol/L (136-145) Potassium Level 3.5mmol/L (3.5-5.1) Chloride Level 109mmol/L (98-107) Carbon Dioxide Level 28mmol/L (21-32) Anion Gap 8 (6-14) Blood Urea Nitrogen 25mg/dL (7-20) Creatinine 0.9mg/dL (0.6-1.0) Estimated GFR (Cockcroft-Gault) 60.4 Glucose Level 82mg/dL (70-99) Calcium Level 7.5mg/dL (8.5-10.1) Vancomycin Level Trough 6.4mcg/mL (10.0-20.0) Vancomycin Last Dose Date Vancomycin Last Dose Time Laboratory Tests Test 07/05/16 15:15 Vancomycin Level Trough 6.4mcg/mL (10.0-20.0) Vancomycin Last Dose Date Vancomycin Last Dose Time Medications Current Medications Albuterol/ Ipratropium (Duoneb) 3 ml STK-MED ONCE .ROUTE ; Start 07/03/16 at 12: 05; Stop 07/03/16 at 12:06; Status DC Albuterol/ Ipratropium (Duoneb) 3 ml 1X ONCE NEB ; Start 07/03/16 at 12:15; Stop 07/03/16 at 12:16; Status DC Prednisone (Prednisone) 50 mg 1X ONCE PO Last administered on 07/03/16t 12:45 ; Start 07/03/16 at 12:15; Stop 07/03/16 at 12:16; Status DC Ondansetron HCl (Zofran) 4 mg PRN Q8HRS PRN IV NAUSEA/VOMITING; Start 07/03/16 at 12:45; Stop 07/04/16 at 12:44; Status DC Albuterol/ Ipratropium (Duoneb) 3 ml RTQID NEB Last administered on 07/04/16 11:38; Start 07/03/16 at 16:00; Stop 07/04/16 at 13:28; Status DC Vancomycin HCl (Vanco Per Pharmacy) 1 each PRN DAILY PRN MC SEE COMMENTS Last administered on 07/05/16 16:05; Start 07/03/16 at 13:15 Piperacillin Sod/ Tazobactam Sod 1 each 1 each PRN DAILY PRN MC SEE COMMENTS; Start 07/03/16 at 13:15 Vancomycin HCl 1.75 gm/Sodium Chloride 500 ml @ 250 mls/hr 1X ONCE IV Last administered on 07/03/16 15:54; Start 07/03/16 at 14:00; Stop 07/03/16 at 15:59 ; Status DC Piperacillin Sod/ Tazobactam Sod/ Sodium Chloride (Zosyn/Iv Sodium Chloride 0.9 % 100ml) 100 ml @ 200 mls/hr Q6HRS IV Last administered on 07/06/16 06:21; Start 07/03/16 at 13:30 Budesonide (Pulmicort) 0.5 mg RTBID NEB Last administered on 07/06/16 07:27; Start 07/03/16 at 20:00 Pantoprazole Sodium (Protonix) 40 mg DAILYAC PO Last administered on 07/05/16 08:33; Start 07/03/16 at 14:30 Enoxaparin Sodium 40 mg 40 mg Q24H SQ Last administered on 07/03/16 15:53; Start 07/03/16 at 15:00; Stop 07/04/16 at 09:59; Status DC Vancomycin HCl/ Sodium Chloride (Iv Sodium Chloride 0.9% 250ml) 250 ml @ 250 mls/hr Q24H IV Last administered on 07/04/16 16:52; Start 07/04/16 at 16:00; Stop 07/05/16 at 15:56; Status DC Vancomycin HCl 1 each 1X ONCE MC Last administered on 07/05/16 15:30; Start 07/05/16 at 15:30; Stop 07/05/16 at 15:31; Status DC Promethazine HCl/ Codeine (Phenergan With Codeine) 5 ml PRN Q4HRS PRN PO COUGH Last administered on 07/06/16 05:01; Start 07/03/16 at 23:45 Amiodarone HCl (Cordarone) 200 mg DAILY07 PO Last administered on 07/05/16 08: 33; Start 07/04/16 at 09:30 Aspirin (Children'S Aspirin) 81 mg DAILYWBKFT PO Last administered on 08:32; Start 07/04/16 at 09:30 Clopidogrel Bisulfate (Plavix) 75 mg DAILYWBKFT PO Last administered on 08:32; Start 07/04/16 at 09:30 Furosemide (Lasix) 20 mg DAILY PO Last administered on 07/04/16 09:54; Start 07/04/16 at 09:30; Stop 07/04/16 at 14:08; Status DC Hydroxychloroquine Sulfate (Plaquenil) 200 mg BID PO Last administered on 21:33; Start 07/04/16 at 09:30 Albuterol/ Ipratropium (Duoneb) 3 ml RTQID NEB Last administered on 07/06/16 07:27; Start 07/04/16 at 12:00 Isosorbide Mononitrate (Imdur) 30 mg DAILY PO Last administered on 07/05/16 08 :32; Start 07/04/16 at 09:30 Metoprolol Tartrate (Lopressor) 12.5 mg BID PO Last administered on 07/05/16 21:34; Start 07/04/16 at 09:30 Potassium Chloride (Klor-Con) 20 meq DAILYWBKFT PO Last administered on 08:31; Start 07/04/16 at 09:30 Non-Formulary Medication 1 puff BID IH ; Start 07/04/16 at 09:00; Status UNV Atorvastatin Calcium (Lipitor) 10 mg QHS PO Last administered on 07/05/16 21: 33; Start 07/04/16 at 21:00 Ropinirole HCl (Requip) 0.5 mg DAILY PO ; Start 07/04/16 at 09:30; Stop at 09:30; Status DC Non-Formulary Medication 1 tab QHS PO ; Start 07/04/16 at 21:00; Status UNV Pantoprazole Sodium (Protonix) 40 mg DAILYAC PO ; Start 07/04/16 at 09:30; Status UNV Montelukast Sodium (Singulair) 10 mg QHS PO Last administered on 07/05/16 21: 33; Start 07/04/16 at 21:00 Enoxaparin Sodium (Lovenox 40mg Syringe) 40 mg Q24H SQ ; Start 07/04/16 at 09:15 ; Status UNV Ropinirole HCl (Requip) 0.5 mg BID PO Last administered on 07/05/16 21:33; Start 07/04/16 at 09:30 Furosemide 40 mg 40 mg DAILY IVP Last administered on 07/05/16 08:33; Start at 09:00 Vancomycin HCl/ Sodium Chloride (Iv Sodium Chloride 0.9% 250ml) 250 ml @ 250 mls/hr Q12H IV Last administered on 07/06/16 05:01; Start 07/05/16 at 16:00 Vancomycin HCl 1 each 1X ONCE MC ; Start 07/07/16 at 03:30; Stop 07/07/16 at 03 :31 Active Scripts Active Isosorbide Mononitrate Er (Isosorbide Mononitrate) 30 Mg Tab.er.24h 1 Tab PO DAILY Duoneb 0.5-3(2.5) Mg/3 Ml (Albuterol/Ipratropium) 3 Ml Ampul.neb 3 Ml NEB QID Plavix (Clopidogrel Bisulfate) 75 Mg Tablet 75 Mg PO DAILYWBKFT Reported Requip (Ropinirole Hcl) 0.5 Mg Tablet 0.5 Mg PO DAILY Prednisone 20 Mg Tablet 1 Tab PO DAILY Advair 250-50 Diskus (Fluticasone/Salmeterol) 1 Each Disk.w.dev 1 Puff IH BID Requip (Ropinirole Hcl) 0.5 Mg Tablet 1 Tab PO QHS Pravastatin Sodium 40 Mg Tablet 1 Tab PO DAILY Potassium Chloride 20 Meq Tab.er.prt 1 Tab PO DAILY Lasix (Furosemide) 40 Mg Tablet 20 Mg PO DAILY Pacerone (Amiodarone Hcl) 200 Mg Tablet 200 Mg PO DAILY07 Metoprolol Tartrate 25 Mg Tablet 12.5 Tab PO BID Nexium 24Hr (Esomeprazole Magnesium) 20 Mg Capsule.dr 40 Mg PO Aspirin 81 Mg Tab.chew 1 Tab PO DAILY Plaquenil (Hydroxychloroquine Sulfate) 200 Mg Tablet 200 Mg PO BID Vitals/I & O Vital Sign - Last 24 Hours 07/05/16 07/05/16 07/05/16 07/05/16 11:16 12:11 15:51 16:27 Temp 98.1 97.7 98.1 97.7 Pulse 68 76 Resp 18 18 B/P 112/73 134/61 Pulse Ox 97 97 97 O2 Delivery Nasal Cannula Nasal Cannula Nasal Cannula Nasal Cannula O2 Flow Rate 6.0 5.0 6.0 5.0 07/05/16 07/05/16 07/05/16 07/05/16 18:59 19:00 20:00 21:34 Temp 98.1 98.1 Pulse 82 82 Resp 24 B/P 130/64 130/64 Pulse Ox 93 97 O2 Delivery Nasal Cannula Nasal Cannula Nasal Cannula O2 Flow Rate 5.0 5.0 5.0 07/05/16 07/06/16 07/06/16 22:32 03:00 07:27 Temp 95.9 98.1 95.9 98.1 Pulse 66 67 Resp 18 20 B/P 114/46 120/51 Pulse Ox 97 97 96 O2 Delivery Nasal Cannula Nasal Cannula Nasal Cannula O2 Flow Rate 5.0 5.0 5.0 Intake and Output 07/05/16 07/05/16 07/06/16 15:00 23:00 07:00 Intake Total 357 ml 1527 ml 250 ml Balance 357 ml 1527 ml 250 ml MILADIS CESPEDES MD Jul 06, 2016 08:43
[2016-07-06] MEDS: ISOSORBIDE MONONITRATE ER 30 MG TAB.ER.24H PO SCH (09:06)
[2016-07-06] MEDS: METOPROLOL TART IMMED RELEASE 25 MG TABLET PO SCH ×2 (09:06→20:51)
[2016-07-06] MEDS: AMIODARONE HCL 200 MG TABLET PO SCH (09:07)
[2016-07-06] MEDS: FUROSEMIDE 40 MG/4 ML VIAL IVP SCH (09:07)
[2016-07-06] MEDS: rOPINIRole 0.25 MG TABLET. PO SCH ×2 (09:56→20:49)
--- NOTE | 2016-07-06 10:59 | PDOC ---
PROGRESS NOTES Subjective Subjective A&Ox3 and cooperative. C/o SOB with exertion only. Maintaining on 4L NC, denies SOB in bed. Denies having chest pain. Denies n/v/d. Objective Objective Vital Signs Date Time Temp Pulse Resp B/P Pulse Ox O2 Delivery O2 Flow Rate FiO2 07/06/16 10:47 95 Nasal Cannula 4.5 07/06/16 09:07 66 122/66 07/06/16 07:00 98.0 20 98.0 Intake and Output 07/06/16 07:00 Intake Total 2134 ml Balance 2134 ml Intake Oral 1684 ml IV Total 450 ml # Voids 7 Physical Exam Abdomen: Normal bowel sounds, Soft, No tenderness, No hepatosplenomegaly, No masses Heart: Regular rate, Normal S1, Normal S2 (split S2), No murmurs, Gallops Extremities: No clubbing, No cyanosis, No edema, Normal pulses, No tenderness/ swelling General: Alert, Oriented X3, Cooperative, No acute distress Lungs: Clear to auscultation, Normal air movement Neck: Supple, No JVD, No thyromegaly Assessment Assessment Problems Medical Problems: (1) Acute and chronic respiratory failure with hypoxia Status: Acute (2) COPD exacerbation Status: Acute (3) Healthcare-associated pneumonia Status: Acute (4) Hypoxia Status: Acute Plan Plan of Care HTN well controlled with Metoprolol CHF stable Continue with current treatment plan Comment Review of Relevant I have reviewed the following items nam (where applicable) has been applied. Labs Laboratory Tests Test 07/05/16 04:14 07/05/16 15:15 White Blood Count 16.9x10^3/uL (4.0-11.0) Red Blood Count 4.30x10^6/uL (3.50-5.40) Hemoglobin 9.2g/dL (12.0-15.5) Hematocrit 30.1% (36.0-47.0) Mean Corpuscular Volume 70fL (79-100) Mean Corpuscular Hemoglobin 21pg (25-35) Mean Corpuscular Hemoglobin Concent 31g/dL (31-37) Red Cell Distribution Width 17.3% (11.5-14.5) Platelet Count 189x10^3/uL (140-400) Neutrophils (%) (Auto) 89% (31-73) Lymphocytes (%) (Auto) 3% (24-48) Monocytes (%) (Auto) 8% (0-9) Eosinophils (%) (Auto) 0% (0-3) Basophils (%) (Auto) 0% (0-3) Neutrophils # (Auto) 15.0x10^3uL (1.8-7.7) Lymphocytes # (Auto) 0.6x10^3/uL (1.0-4.8) Monocytes # (Auto) 1.3x10^3/uL (0.0-1.1) Eosinophils # (Auto) 0.0x10^3/uL (0.0-0.7) Basophils # (Auto) 0.0x10^3/uL (0.0-0.2) Sodium Level 145mmol/L (136-145) Potassium Level 3.5mmol/L (3.5-5.1) Chloride Level 109mmol/L (98-107) Carbon Dioxide Level 28mmol/L (21-32) Anion Gap 8 (6-14) Blood Urea Nitrogen 25mg/dL (7-20) Creatinine 0.9mg/dL (0.6-1.0) Estimated GFR (Cockcroft-Gault) 60.4 Glucose Level 82mg/dL (70-99) Calcium Level 7.5mg/dL (8.5-10.1) Vancomycin Level Trough 6.4mcg/mL (10.0-20.0) Vancomycin Last Dose Date Vancomycin Last Dose Time Laboratory Tests Test 07/05/16 15:15 Vancomycin Level Trough 6.4mcg/mL (10.0-20.0) Vancomycin Last Dose Date Vancomycin Last Dose Time Medications Current Medications Albuterol/ Ipratropium (Duoneb) 3 ml STK-MED ONCE .ROUTE ; Start 07/03/16 at 12: 05; Stop 07/03/16 at 12:06; Status DC Albuterol/ Ipratropium (Duoneb) 3 ml 1X ONCE NEB ; Start 07/03/16 at 12:15; Stop 07/03/16 at 12:16; Status DC Prednisone (Prednisone) 50 mg 1X ONCE PO Last administered on 07/03/16t 12:45 ; Start 07/03/16 at 12:15; Stop 07/03/16 at 12:16; Status DC Ondansetron HCl (Zofran) 4 mg PRN Q8HRS PRN IV NAUSEA/VOMITING; Start 07/03/16 at 12:45; Stop 07/04/16 at 12:44; Status DC Albuterol/ Ipratropium (Duoneb) 3 ml RTQID NEB Last administered on 07/04/16 11:38; Start 07/03/16 at 16:00; Stop 07/04/16 at 13:28; Status DC Vancomycin HCl (Vanco Per Pharmacy) 1 each PRN DAILY PRN MC SEE COMMENTS Last administered on 07/05/16 16:05; Start 07/03/16 at 13:15 Piperacillin Sod/ Tazobactam Sod 1 each 1 each PRN DAILY PRN MC SEE COMMENTS; Start 07/03/16 at 13:15 Vancomycin HCl 1.75 gm/Sodium Chloride 500 ml @ 250 mls/hr 1X ONCE IV Last administered on 07/03/16 15:54; Start 07/03/16 at 14:00; Stop 07/03/16 at 15:59 ; Status DC Piperacillin Sod/ Tazobactam Sod/ Sodium Chloride (Zosyn/Iv Sodium Chloride 0.9 % 100ml) 100 ml @ 200 mls/hr Q6HRS IV Last administered on 07/06/16 06:21; Start 07/03/16 at 13:30 Budesonide (Pulmicort) 0.5 mg RTBID NEB Last administered on 07/06/16 07:27; Start 07/03/16 at 20:00 Pantoprazole Sodium (Protonix) 40 mg DAILYAC PO Last administered on 07/06/16 08:40; Start 07/03/16 at 14:30 Enoxaparin Sodium 40 mg 40 mg Q24H SQ Last administered on 07/03/16 15:53; Start 07/03/16 at 15:00; Stop 07/04/16 at 09:59; Status DC Vancomycin HCl/ Sodium Chloride (Iv Sodium Chloride 0.9% 250ml) 250 ml @ 250 mls/hr Q24H IV Last administered on 07/04/16 16:52; Start 07/04/16 at 16:00; Stop 07/05/16 at 15:56; Status DC Vancomycin HCl 1 each 1X ONCE MC Last administered on 07/05/16 15:30; Start 07/05/16 at 15:30; Stop 07/05/16 at 15:31; Status DC Promethazine HCl/ Codeine (Phenergan With Codeine) 5 ml PRN Q4HRS PRN PO COUGH Last administered on 07/06/16 05:01; Start 07/03/16 at 23:45 Amiodarone HCl (Cordarone) 200 mg DAILY07 PO Last administered on 07/06/16 09: 07; Start 07/04/16 at 09:30 Aspirin (Children'S Aspirin) 81 mg DAILYWBKFT PO Last administered on 08:40; Start 07/04/16 at 09:30 Clopidogrel Bisulfate (Plavix) 75 mg DAILYWBKFT PO Last administered on 08:40; Start 07/04/16 at 09:30 Furosemide (Lasix) 20 mg DAILY PO Last administered on 07/04/16 09:54; Start 07/04/16 at 09:30; Stop 07/04/16 at 14:08; Status DC Hydroxychloroquine Sulfate (Plaquenil) 200 mg BID PO Last administered on 08:41; Start 07/04/16 at 09:30 Albuterol/ Ipratropium (Duoneb) 3 ml RTQID NEB Last administered on 07/06/16 10:46; Start 07/04/16 at 12:00 Isosorbide Mononitrate (Imdur) 30 mg DAILY PO Last administered on 07/06/16 09 :06; Start 07/04/16 at 09:30 Metoprolol Tartrate (Lopressor) 12.5 mg BID PO Last administered on 07/06/16 09:06; Start 07/04/16 at 09:30 Potassium Chloride (Klor-Con) 20 meq DAILYWBKFT PO Last administered on 08:41; Start 07/04/16 at 09:30 Non-Formulary Medication 1 puff BID IH ; Start 07/04/16 at 09:00; Status UNV Atorvastatin Calcium (Lipitor) 10 mg QHS PO Last administered on 07/05/16 21: 33; Start 07/04/16 at 21:00 Ropinirole HCl (Requip) 0.5 mg DAILY PO ; Start 07/04/16 at 09:30; Stop at 09:30; Status DC Non-Formulary Medication 1 tab QHS PO ; Start 07/04/16 at 21:00; Status UNV Pantoprazole Sodium (Protonix) 40 mg DAILYAC PO ; Start 07/04/16 at 09:30; Status UNV Montelukast Sodium (Singulair) 10 mg QHS PO Last administered on 07/05/16 21: 33; Start 07/04/16 at 21:00 Enoxaparin Sodium (Lovenox 40mg Syringe) 40 mg Q24H SQ ; Start 07/04/16 at 09:15 ; Status UNV Ropinirole HCl (Requip) 0.5 mg BID PO Last administered on 07/06/16 09:56; Start 07/04/16 at 09:30 Furosemide 40 mg 40 mg DAILY IVP Last administered on 07/06/16 09:07; Start at 09:00 Vancomycin HCl/ Sodium Chloride (Iv Sodium Chloride 0.9% 250ml) 250 ml @ 250 mls/hr Q12H IV Last administered on 07/06/16 05:01; Start 07/05/16 at 16:00 Vancomycin HCl 1 each 1X ONCE MC ; Start 07/07/16 at 03:30; Stop 07/07/16 at 03 :31 Active Scripts Active Isosorbide Mononitrate Er (Isosorbide Mononitrate) 30 Mg Tab.er.24h 1 Tab PO DAILY Duoneb 0.5-3(2.5) Mg/3 Ml (Albuterol/Ipratropium) 3 Ml Ampul.neb 3 Ml NEB QID Plavix (Clopidogrel Bisulfate) 75 Mg Tablet 75 Mg PO DAILYWBKFT Reported Requip (Ropinirole Hcl) 0.5 Mg Tablet 0.5 Mg PO DAILY Prednisone 20 Mg Tablet 1 Tab PO DAILY Advair 250-50 Diskus (Fluticasone/Salmeterol) 1 Each Disk.w.dev 1 Puff IH BID Requip (Ropinirole Hcl) 0.5 Mg Tablet 1 Tab PO QHS Pravastatin Sodium 40 Mg Tablet 1 Tab PO DAILY Potassium Chloride 20 Meq Tab.er.prt 1 Tab PO DAILY Lasix (Furosemide) 40 Mg Tablet 20 Mg PO DAILY Pacerone (Amiodarone Hcl) 200 Mg Tablet 200 Mg PO DAILY07 Metoprolol Tartrate 25 Mg Tablet 12.5 Tab PO BID Nexium 24Hr (Esomeprazole Magnesium) 20 Mg Capsule.dr 40 Mg PO Aspirin 81 Mg Tab.chew 1 Tab PO DAILY Plaquenil (Hydroxychloroquine Sulfate) 200 Mg Tablet 200 Mg PO BID Vitals/I & O Vital Sign - Last 24 Hours 07/05/16 07/05/16 07/05/16 07/05/16 11:16 12:11 15:51 16:27 Temp 98.1 97.7 98.1 97.7 Pulse 68 76 Resp 18 18 B/P 112/73 134/61 Pulse Ox 97 97 97 O2 Delivery Nasal Cannula Nasal Cannula Nasal Cannula Nasal Cannula O2 Flow Rate 6.0 5.0 6.0 5.0 07/05/16 07/05/16 07/05/16 07/05/16 18:59 19:00 20:00 21:34 Temp 98.1 98.1 Pulse 82 82 Resp 24 B/P 130/64 130/64 Pulse Ox 93 97 O2 Delivery Nasal Cannula Nasal Cannula Nasal Cannula O2 Flow Rate 5.0 5.0 5.0 07/05/16 07/06/16 07/06/16 07/06/16 22:32 03:00 07:00 07:27 Temp 95.9 98.1 98.0 95.9 98.1 98.0 Pulse 66 67 66 Resp 18 20 20 B/P 114/46 120/51 122/50 Pulse Ox 97 97 98 96 O2 Delivery Nasal Cannula Nasal Cannula Nasal Cannula Nasal Cannula O2 Flow Rate 5.0 5.0 5.0 5.0 07/06/16 07/06/16 07/06/16 07/06/16 08:00 09:06 09:06 09:07 Pulse 66 66 66 B/P 122/50 122/50 122/66 O2 Delivery Nasal Cannula O2 Flow Rate 5.0 07/06/16 10:47 Pulse Ox 95 O2 Delivery Nasal Cannula O2 Flow Rate 4.5 Intake and Output 07/05/16 07/05/16 07/06/16 15:00 23:00 07:00 Intake Total 357 ml 1527 ml 250 ml Balance 357 ml 1527 ml 250 ml IRMA PARDO MD Jul 06, 2016 10:59
[2016-07-06 11:00] VITALS: BP 112/64
--- NOTE | 2016-07-06 14:22 | PDOC ---
PULMONARY PROGRESS NOTES Subjective mild cough, better no sputum, Vitals Vital Signs Date Time Temp Pulse Resp B/P Pulse Ox O2 Delivery O2 Flow Rate FiO2 07/06/16 11:00 97.7 81 20 112/64 95 Nasal Cannula 5.0 97.7 Comments ros as above, other sys otherwise neg General: Alert, No acute distress HEENT: Other (nc at perrl) Lungs: Other (decrease bs) Cardiovascular: S1, S2 Abdomen: Soft, Non-tender, Other (no mass) Neuro Exam: Alert Extremities: No Edema Skin: Warm Labs Laboratory Tests Test 07/05/16 04:14 07/05/16 15:15 White Blood Count 16.9x10^3/uL (4.0-11.0) Red Blood Count 4.30x10^6/uL (3.50-5.40) Hemoglobin 9.2g/dL (12.0-15.5) Hematocrit 30.1% (36.0-47.0) Mean Corpuscular Volume 70fL (79-100) Mean Corpuscular Hemoglobin 21pg (25-35) Mean Corpuscular Hemoglobin Concent 31g/dL (31-37) Red Cell Distribution Width 17.3% (11.5-14.5) Platelet Count 189x10^3/uL (140-400) Neutrophils (%) (Auto) 89% (31-73) Lymphocytes (%) (Auto) 3% (24-48) Monocytes (%) (Auto) 8% (0-9) Eosinophils (%) (Auto) 0% (0-3) Basophils (%) (Auto) 0% (0-3) Neutrophils # (Auto) 15.0x10^3uL (1.8-7.7) Lymphocytes # (Auto) 0.6x10^3/uL (1.0-4.8) Monocytes # (Auto) 1.3x10^3/uL (0.0-1.1) Eosinophils # (Auto) 0.0x10^3/uL (0.0-0.7) Basophils # (Auto) 0.0x10^3/uL (0.0-0.2) Sodium Level 145mmol/L (136-145) Potassium Level 3.5mmol/L (3.5-5.1) Chloride Level 109mmol/L (98-107) Carbon Dioxide Level 28mmol/L (21-32) Anion Gap 8 (6-14) Blood Urea Nitrogen 25mg/dL (7-20) Creatinine 0.9mg/dL (0.6-1.0) Estimated GFR (Cockcroft-Gault) 60.4 Glucose Level 82mg/dL (70-99) Calcium Level 7.5mg/dL (8.5-10.1) Vancomycin Level Trough 6.4mcg/mL (10.0-20.0) Vancomycin Last Dose Date Vancomycin Last Dose Time Laboratory Tests Test 07/05/16 15:15 Vancomycin Level Trough 6.4mcg/mL (10.0-20.0) Vancomycin Last Dose Date Vancomycin Last Dose Time Medications Active Scripts Medications Dose Route/Sig Days Date Category Prednisone 20 Mg Tablet 1 Tab PO DAILY 9 06/30/16 Rx Advair 250-50 Diskus (Fluticasone/Salmeterol) 1 Each Disk.w.dev 1 Puff IH BID 06/26/16 Reported Requip (Ropinirole Hcl) 0.5 Mg Tablet 1 Tab PO QHS 06/26/16 Reported Albuterol Sulfate Neb Soln (Albuterol Sulfate) 1.25 Mg/3 Ml Vial.neb 1 Vial NEB Q4HRS 05/11/16 Rx Isosorbide Mononitrate Er (Isosorbide Mononitrate) 30 Mg Tab.er.24h 1 Tab PO DAILY 05/08/16 Rx Duoneb 0.5-3(2.5) Mg/3 Ml (Albuterol/Ipratropium) 3 Ml Ampul.neb 3 Ml NEB QID 05/08/16 Rx Pravastatin Sodium 40 Mg Tablet 1 Tab PO DAILY 05/07/16 Reported Potassium Chloride 20 Meq Tab.er.prt 1 Tab PO DAILY 08/20/14 Reported Lasix (Furosemide) 40 Mg Tablet 20 Mg PO DAILY 08/20/14 Reported Pacerone (Amiodarone Hcl) 200 Mg Tablet 200 Mg PO DAILY07 08/16/14 Reported Metoprolol Tartrate 25 Mg Tablet 12.5 Tab PO BID 05/21/14 Reported Hydrocodone-Apap 5-325 (Hydrocodone Bit/Acetaminophen) 1 Each Tablet 1 Tab PO PRN Q4HRS PRN 05/21/14 Reported Plavix (Clopidogrel Bisulfate) 75 Mg Tablet 75 Mg PO DAILYWBKFT 04/19/14 Rx Nexium 24Hr (Esomeprazole Magnesium) 20 Mg Capsule.dr 40 Mg PO 04/16/14 Reported Plaquenil (Hydroxychloroquine Sulfate) 200 Mg Tablet 200 Mg PO BID 04/16/14 Reported Comments cxr reviewed, l infilt Impression . 1. Acute on chronic hypoxemic respiratory failure, multifactorial in etiology. 2. Abnormal chest x-ray. 3. Pneumonia. 4. Acute exacerbation of chronic obstructive pulmonary disease. 5. Acute diastolic congestive heart failure. 6. Leukocytosis. 7. Gastroesophageal reflux disease. 8. Coronary artery disease. 9. allergic rhinitis Plan . 1. Titrate FiO2 to keep O2 saturation 92%. 2. Continue vancomycin and Zosyn. 3. Repeat cxr today, If no improvement , will do ct chest (Pt on amiodarone) 4. Bronchodilator. 5. Inhaled corticosteroid. 6. Lovenox for DVT prophylaxis. 7. Stress ulcer prophylaxis. 8. Influenza A and B neg . ELIO ADAM MD Jul 06, 2016 14:22
--- NOTE | 2016-07-06 15:10 | RAD ---
Indication follow-up pneumonia. A single view of the chest was obtained. Comparison is made to an exam 3 days earlier. Infiltrate, compatible with pneumonia, in the left midlung seen previously has partially cleared. Some volume loss, probably reflecting pleural fluid, is present at the left lung base. A focal infiltrate in the right lung is not seen. The heart and pulmonary vessels are within normal limits. Postoperative changes are noted. IMPRESSION: Partial clearing of previously identified infiltrate in the left lung. Probable small left pleural effusion
[2016-07-06 19:23] VITALS: BP 122/59
[2016-07-06] MEDS: MONTELUKAST SODIUM 10 MG TABLET. PO SCH (20:49)
[2016-07-06] MEDS: ATORVASTATIN CALCIUM 10 MG TABLET. PO SCH (20:50)
[2016-07-06 23:26] VITALS: BP 112/42
[2016-07-07] MEDS: PROMETH/CODEINE 6.25/10MG 5 ML SYRUP. PO PRN ×3 (01:18→20:27)
[2016-07-07 02:31] VITALS: BP 118/51
[2016-07-07] MEDS: VANCOMYCIN 1 GM in IV NORMAL SALINE 250ML 250 ML IV SCH (04:25)
[2016-07-07 04:42] LABS: HEMATOCRIT 28.7 % (36.0-47.0); HEMOGLOBIN 8.6 g/dL (12.0-15.5); RED BLOOD COUNT 4.09 x10^6/uL (3.50-5.40); RED CELL DISTRIBUTION WIDTH 17.8 % (11.5-14.5); WHITE BLOOD COUNT 13.3 x10^3/uL (4.0-11.0)
[2016-07-07 05:11] LABS: CALCIUM 7.9 mg/dL (8.5-10.1); CREATININE 0.7 mg/dL (0.6-1.0); GFR 80.7
[2016-07-07] MEDS: VANCOMYCIN PER PHARMACY MC PRN (05:32)
[2016-07-07] MEDS: PIPERACILLIN/TAZOBACTAM 4.5 GM in IV NORMAL SALINE 100ML 100 ML IV SCH ×5 (05:42→22:13)
[2016-07-07] MEDS: AMIODARONE HCL 200 MG TABLET PO SCH (06:16)
[2016-07-07 07:00] VITALS: BP 130/79
--- NOTE | 2016-07-07 08:30 | PDOC ---
PROGRESS NOTES Subjective Subjective Patient reports cough is troublesome at times, does feel better otherwise. Objective Objective Vital Signs Date Time Temp Pulse Resp B/P Pulse Ox O2 Delivery O2 Flow Rate FiO2 07/07/16 07:00 98.1 61 18 130/79 94 98.1 07/07/16 02:31 Nasal Cannula 07/06/16 20:07 3.5 Intake and Output 07/07/16 07:00 Intake Total 800 ml Balance 800 ml Intake Oral 800 ml # Voids 5 Physical Exam Abdomen: Normal bowel sounds, Soft, No tenderness Heart: Regular rate Extremities: No edema General: Alert, Oriented X3, No acute distress Lungs: Other (BS moderately decreased throughout, few crackles on left, otherwise CTA) Assessment Assessment Problems Medical Problems: (1) Acute and chronic respiratory failure with hypoxia Status: Acute (2) COPD exacerbation Status: Acute (3) Healthcare-associated pneumonia Status: Acute (4) Hypoxia Status: Acute Plan Plan of Care 1. Acute on chronic respiratory failure with pneumonia - CXR shows partial clearing of infiltrate. Patient's O2 needs are decreasing. Continue present tx including Vancomycin and Zosyn, nebs, inhaled steroid. Continue therapies to maintain mobility so she can go home at discharge. 2. CHF - mild systolic, stable. Change back to po Lasix and increase K+. 3. HTN - controlled, continue present meds. 4. hx CAD - stable, continue meds as per Cardiology. 5. scleroderma - stable, continue home meds. Comment Review of Relevant I have reviewed the following items nam (where applicable) has been applied. Labs Laboratory Tests Test 07/05/16 15:15 07/07/16 03:39 Vancomycin Level Trough 6.4mcg/mL (10.0-20.0) 12.9mcg/mL (10.0-20.0) Vancomycin Last Dose Date 07/06/16 Vancomycin Last Dose Time 1600 White Blood Count 13.3x10^3/uL (4.0-11.0) Red Blood Count 4.09x10^6/uL (3.50-5.40) Hemoglobin 8.6g/dL (12.0-15.5) Hematocrit 28.7% (36.0-47.0) Mean Corpuscular Volume 70fL (79-100) Mean Corpuscular Hemoglobin 21pg (25-35) Mean Corpuscular Hemoglobin Concent 30g/dL (31-37) Red Cell Distribution Width 17.8% (11.5-14.5) Platelet Count 178x10^3/uL (140-400) Sodium Level 145mmol/L (136-145) Potassium Level 3.0mmol/L (3.5-5.1) Chloride Level 105mmol/L (98-107) Carbon Dioxide Level 31mmol/L (21-32) Anion Gap 9 (6-14) Blood Urea Nitrogen 17mg/dL (7-20) Creatinine 0.7mg/dL (0.6-1.0) Estimated GFR (Cockcroft-Gault) 80.7 Glucose Level 94mg/dL (70-99) Calcium Level 7.9mg/dL (8.5-10.1) Laboratory Tests Test 07/07/16 03:39 White Blood Count 13.3x10^3/uL (4.0-11.0) Red Blood Count 4.09x10^6/uL (3.50-5.40) Hemoglobin 8.6g/dL (12.0-15.5) Hematocrit 28.7% (36.0-47.0) Mean Corpuscular Volume 70fL (79-100) Mean Corpuscular Hemoglobin 21pg (25-35) Mean Corpuscular Hemoglobin Concent 30g/dL (31-37) Red Cell Distribution Width 17.8% (11.5-14.5) Platelet Count 178x10^3/uL (140-400) Sodium Level 145mmol/L (136-145) Potassium Level 3.0mmol/L (3.5-5.1) Chloride Level 105mmol/L (98-107) Carbon Dioxide Level 31mmol/L (21-32) Anion Gap 9 (6-14) Blood Urea Nitrogen 17mg/dL (7-20) Creatinine 0.7mg/dL (0.6-1.0) Estimated GFR (Cockcroft-Gault) 80.7 Glucose Level 94mg/dL (70-99) Calcium Level 7.9mg/dL (8.5-10.1) Vancomycin Level Trough 12.9mcg/mL (10.0-20.0) Vancomycin Last Dose Date 07/06/16 Vancomycin Last Dose Time 1600 Medications Current Medications Albuterol/ Ipratropium (Duoneb) 3 ml STK-MED ONCE .ROUTE ; Start 07/03/16 at 12: 05; Stop 07/03/16 at 12:06; Status DC Albuterol/ Ipratropium (Duoneb) 3 ml 1X ONCE NEB ; Start 07/03/16 at 12:15; Stop 07/03/16 at 12:16; Status DC Prednisone (Prednisone) 50 mg 1X ONCE PO Last administered on 07/03/16 12:45 ; Start 07/03/16 at 12:15; Stop 07/03/16 at 12:16; Status DC Ondansetron HCl (Zofran) 4 mg PRN Q8HRS PRN IV NAUSEA/VOMITING; Start 07/03/16 at 12:45; Stop 07/04/16 at 12:44; Status DC Albuterol/ Ipratropium (Duoneb) 3 ml RTQID NEB Last administered on 07/04/16 11:38; Start 07/03/16 at 16:00; Stop 07/04/16 at 13:28; Status DC Vancomycin HCl (Vanco Per Pharmacy) 1 each PRN DAILY PRN MC SEE COMMENTS Last administered on 07/07/16 05:32; Start 07/03/16 at 13:15 Piperacillin Sod/ Tazobactam Sod 1 each 1 each PRN DAILY PRN MC SEE COMMENTS; Start 07/03/16 at 13:15 Vancomycin HCl 1.75 gm/Sodium Chloride 500 ml @ 250 mls/hr 1X ONCE IV Last administered on 07/03/16 15:54; Start 07/03/16 at 14:00; Stop 07/03/16 at 15:59 ; Status DC Piperacillin Sod/ Tazobactam Sod/ Sodium Chloride (Zosyn/Iv Sodium Chloride 0.9 % 100ml) 100 ml @ 200 mls/hr Q6HRS IV Last administered on 07/07/16 05:42; Start 07/03/16 at 13:30 Budesonide (Pulmicort) 0.5 mg RTBID NEB Last administered on 07/06/16 19:50; Start 07/03/16 at 20:00 Pantoprazole Sodium (Protonix) 40 mg DAILYAC PO Last administered on 07/06/16 08:40; Start 07/03/16 at 14:30 Enoxaparin Sodium 40 mg 40 mg Q24H SQ Last administered on 07/03/16 15:53; Start 07/03/16 at 15:00; Stop 07/04/16 at 09:59; Status DC Vancomycin HCl/ Sodium Chloride (Iv Sodium Chloride 0.9% 250ml) 250 ml @ 250 mls/hr Q24H IV Last administered on 07/04/16 16:52; Start 07/04/16 at 16:00; Stop 07/05/16 at 15:56; Status DC Vancomycin HCl 1 each 1X ONCE MC Last administered on 07/05/16 15:30; Start 07/05/16 at 15:30; Stop 07/05/16 at 15:31; Status DC Promethazine HCl/ Codeine (Phenergan With Codeine) 5 ml PRN Q4HRS PRN PO COUGH Last administered on 07/07/16 01:18; Start 07/03/16 at 23:45 Amiodarone HCl (Cordarone) 200 mg DAILY07 PO Last administered on 07/07/16 06: 16; Start 07/04/16 at 09:30 Aspirin (Children'S Aspirin) 81 mg DAILYWBKFT PO Last administered on 08:40; Start 07/04/16 at 09:30 Clopidogrel Bisulfate (Plavix) 75 mg DAILYWBKFT PO Last administered on 08:40; Start 07/04/16 at 09:30 Furosemide (Lasix) 20 mg DAILY PO Last administered on 07/04/16 09:54; Start 07/04/16 at 09:30; Stop 07/04/16 at 14:08; Status DC Hydroxychloroquine Sulfate (Plaquenil) 200 mg BID PO Last administered on 20:50; Start 07/04/16 at 09:30 Albuterol/ Ipratropium (Duoneb) 3 ml RTQID NEB Last administered on 07/06/16 19:50; Start 07/04/16 at 12:00 Isosorbide Mononitrate (Imdur) 30 mg DAILY PO Last administered on 07/06/16 09 :06; Start 07/04/16 at 09:30 Metoprolol Tartrate (Lopressor) 12.5 mg BID PO Last administered on 07/06/16 20:51; Start 07/04/16 at 09:30 Potassium Chloride (Klor-Con) 20 meq DAILYWBKFT PO Last administered on 08:41; Start 07/04/16 at 09:30 Non-Formulary Medication 1 puff BID IH ; Start 07/04/16 at 09:00; Status UNV Atorvastatin Calcium (Lipitor) 10 mg QHS PO Last administered on 07/06/16 20: 50; Start 07/04/16 at 21:00 Ropinirole HCl (Requip) 0.5 mg DAILY PO ; Start 07/04/16 at 09:30; Stop at 09:30; Status DC Non-Formulary Medication 1 tab QHS PO ; Start 07/04/16 at 21:00; Status UNV Pantoprazole Sodium (Protonix) 40 mg DAILYAC PO ; Start 07/04/16 at 09:30; Status UNV Montelukast Sodium (Singulair) 10 mg QHS PO Last administered on 07/06/16 20: 49; Start 07/04/16 at 21:00 Enoxaparin Sodium (Lovenox 40mg Syringe) 40 mg Q24H SQ ; Start 07/04/16 at 09:15 ; Status UNV Ropinirole HCl (Requip) 0.5 mg BID PO Last administered on 07/06/16 20:49; Start 07/04/16 at 09:30 Furosemide 40 mg 40 mg DAILY IVP Last administered on 07/06/16 09:07; Start at 09:00 Vancomycin HCl/ Sodium Chloride (Iv Sodium Chloride 0.9% 250ml) 250 ml @ 250 mls/hr Q12H IV Last administered on 07/07/16 04:25; Start 07/05/16 at 16:00; Stop 07/07/16 at 05:27; Status DC Vancomycin HCl 1 each 1 each 1X ONCE MC ; Start 07/07/16 at 03:30; Stop at 03:31; Status DC Vancomycin HCl/ Sodium Chloride (Iv Sodium Chloride 0.9% 250ml) 250 ml @ 167 mls/hr Q12H IV ; Start 07/07/16 at 16:00 Vancomycin HCl 1 each 1X ONCE MC ; Start 07/08/16 at 15:30; Stop 07/08/16 at 15 :31 Active Scripts Active Isosorbide Mononitrate Er (Isosorbide Mononitrate) 30 Mg Tab.er.24h 1 Tab PO DAILY Duoneb 0.5-3(2.5) Mg/3 Ml (Albuterol/Ipratropium) 3 Ml Ampul.neb 3 Ml NEB QID Plavix (Clopidogrel Bisulfate) 75 Mg Tablet 75 Mg PO DAILYWBKFT Reported Requip (Ropinirole Hcl) 0.5 Mg Tablet 0.5 Mg PO DAILY Prednisone 20 Mg Tablet 1 Tab PO DAILY Advair 250-50 Diskus (Fluticasone/Salmeterol) 1 Each Disk.w.dev 1 Puff IH BID Requip (Ropinirole Hcl) 0.5 Mg Tablet 1 Tab PO QHS Pravastatin Sodium 40 Mg Tablet 1 Tab PO DAILY Potassium Chloride 20 Meq Tab.er.prt 1 Tab PO DAILY Lasix (Furosemide) 40 Mg Tablet 20 Mg PO DAILY Pacerone (Amiodarone Hcl) 200 Mg Tablet 200 Mg PO DAILY07 Metoprolol Tartrate 25 Mg Tablet 12.5 Tab PO BID Nexium 24Hr (Esomeprazole Magnesium) 20 Mg Capsule.dr 40 Mg PO Aspirin 81 Mg Tab.chew 1 Tab PO DAILY Plaquenil (Hydroxychloroquine Sulfate) 200 Mg Tablet 200 Mg PO BID Vitals/I & O Vital Sign - Last 24 Hours 07/06/16 07/06/16 07/06/16 07/06/16 09:06 09:06 09:07 10:47 Pulse 66 66 66 B/P 122/50 122/50 122/66 Pulse Ox 95 O2 Delivery Nasal Cannula O2 Flow Rate 4.5 07/06/16 07/06/16 07/06/16 07/06/16 11:00 15:23 19:23 20:00 Temp 97.7 98.1 97.7 98.1 Pulse 81 82 Resp 20 18 B/P 112/64 122/59 Pulse Ox 95 95 93 O2 Delivery Nasal Cannula Nasal Cannula Nasal Cannula O2 Flow Rate 5.0 3.5 5.0 07/06/16 07/06/16 07/06/16 07/06/16 20:06 20:07 20:51 23:26 Temp 97.5 97.5 Pulse 82 71 Resp 18 B/P 122/57 112/42 Pulse Ox 95 95 96 O2 Delivery Nasal Cannula Nasal Cannula Nasal Cannula O2 Flow Rate 3.5 3.5 07/07/16 07/07/16 07/07/16 02:31 06:16 07:00 Temp 98.1 98.1 98.1 98.1 Pulse 67 63 61 Resp 18 18 B/P 118/51 119/52 130/79 Pulse Ox 96 94 O2 Delivery Nasal Cannula Intake and Output 07/06/16 07/06/16 07/07/16 15:00 23:00 07:00 Intake Total 600 ml 200 ml Balance 600 ml 200 ml MILADIS CESPEDES MD Jul 07, 2016 08:30
[2016-07-07] MEDS: BUDESONIDE 0.5 MG/2 ML NEBU NEB SCH ×2 (09:16→15:44)
[2016-07-07] MEDS: IPRATRPIUM/ALBUTEROL 0.5/2.5MG 3 ML NEBU. NEB SCH ×4 (09:16→20:11)
[2016-07-07] MEDS: rOPINIRole 0.25 MG TABLET. PO SCH ×2 (09:43→20:20)
[2016-07-07] MEDS: PANTOPRAZOLE 40 MG TABLET. PO SCH (09:44)
[2016-07-07] MEDS: METOPROLOL TART IMMED RELEASE 25 MG TABLET PO SCH ×2 (09:45→20:28)
[2016-07-07] MEDS: HYDROXYCHLOROQUINE 200 MG TABLET PO SCH ×2 (09:45→20:20)
[2016-07-07] MEDS: ISOSORBIDE MONONITRATE ER 30 MG TAB.ER.24H PO SCH (09:46)
[2016-07-07] MEDS: CLOPIDOGREL BISULFATE 75 MG TABLET PO SCH (09:46)
[2016-07-07] MEDS: ASPIRIN 81 MG TAB.CHEW PO SCH (09:46)
[2016-07-07] MEDS: POTASSIUM CHLORIDE 20 MEQ TABLET.ER. PO SCH ×3 (09:47→16:22)
--- NOTE | 2016-07-07 10:03 | PDOC ---
PULMONARY PROGRESS NOTES Subjective mild cough, better no sputum, Vitals Vital Signs Date Time Temp Pulse Resp B/P Pulse Ox O2 Delivery O2 Flow Rate FiO2 07/07/16 09:21 99 Nasal Cannula 3.5 07/07/16 07:00 98.1 61 18 130/79 98.1 Comments ros as above, other sys otherwise neg General: Alert, No acute distress HEENT: Other (nc at perrl) Lungs: Other (decrease bs) Cardiovascular: S1, S2 Abdomen: Soft, Non-tender, Other (no mass) Neuro Exam: Alert Extremities: No Edema Skin: Warm Labs Laboratory Tests Test 07/05/16 15:15 07/07/16 03:39 Vancomycin Level Trough 6.4mcg/mL (10.0-20.0) 12.9mcg/mL (10.0-20.0) Vancomycin Last Dose Date 07/06/16 Vancomycin Last Dose Time 1600 White Blood Count 13.3x10^3/uL (4.0-11.0) Red Blood Count 4.09x10^6/uL (3.50-5.40) Hemoglobin 8.6g/dL (12.0-15.5) Hematocrit 28.7% (36.0-47.0) Mean Corpuscular Volume 70fL (79-100) Mean Corpuscular Hemoglobin 21pg (25-35) Mean Corpuscular Hemoglobin Concent 30g/dL (31-37) Red Cell Distribution Width 17.8% (11.5-14.5) Platelet Count 178x10^3/uL (140-400) Sodium Level 145mmol/L (136-145) Potassium Level 3.0mmol/L (3.5-5.1) Chloride Level 105mmol/L (98-107) Carbon Dioxide Level 31mmol/L (21-32) Anion Gap 9 (6-14) Blood Urea Nitrogen 17mg/dL (7-20) Creatinine 0.7mg/dL (0.6-1.0) Estimated GFR (Cockcroft-Gault) 80.7 Glucose Level 94mg/dL (70-99) Calcium Level 7.9mg/dL (8.5-10.1) Laboratory Tests Test 07/07/16 03:39 White Blood Count 13.3x10^3/uL (4.0-11.0) Red Blood Count 4.09x10^6/uL (3.50-5.40) Hemoglobin 8.6g/dL (12.0-15.5) Hematocrit 28.7% (36.0-47.0) Mean Corpuscular Volume 70fL (79-100) Mean Corpuscular Hemoglobin 21pg (25-35) Mean Corpuscular Hemoglobin Concent 30g/dL (31-37) Red Cell Distribution Width 17.8% (11.5-14.5) Platelet Count 178x10^3/uL (140-400) Sodium Level 145mmol/L (136-145) Potassium Level 3.0mmol/L (3.5-5.1) Chloride Level 105mmol/L (98-107) Carbon Dioxide Level 31mmol/L (21-32) Anion Gap 9 (6-14) Blood Urea Nitrogen 17mg/dL (7-20) Creatinine 0.7mg/dL (0.6-1.0) Estimated GFR (Cockcroft-Gault) 80.7 Glucose Level 94mg/dL (70-99) Calcium Level 7.9mg/dL (8.5-10.1) Vancomycin Level Trough 12.9mcg/mL (10.0-20.0) Vancomycin Last Dose Date 07/06/16 Vancomycin Last Dose Time 1600 Medications Active Scripts Medications Dose Route/Sig Days Date Category Prednisone 20 Mg Tablet 1 Tab PO DAILY 9 06/30/16 Rx Advair 250-50 Diskus (Fluticasone/Salmeterol) 1 Each Disk.w.dev 1 Puff IH BID 06/26/16 Reported Requip (Ropinirole Hcl) 0.5 Mg Tablet 1 Tab PO QHS 06/26/16 Reported Albuterol Sulfate Neb Soln (Albuterol Sulfate) 1.25 Mg/3 Ml Vial.neb 1 Vial NEB Q4HRS 05/11/16 Rx Isosorbide Mononitrate Er (Isosorbide Mononitrate) 30 Mg Tab.er.24h 1 Tab PO DAILY 05/08/16 Rx Duoneb 0.5-3(2.5) Mg/3 Ml (Albuterol/Ipratropium) 3 Ml Ampul.neb 3 Ml NEB QID 05/08/16 Rx Pravastatin Sodium 40 Mg Tablet 1 Tab PO DAILY 05/07/16 Reported Potassium Chloride 20 Meq Tab.er.prt 1 Tab PO DAILY 08/20/14 Reported Lasix (Furosemide) 40 Mg Tablet 20 Mg PO DAILY 08/20/14 Reported Pacerone (Amiodarone Hcl) 200 Mg Tablet 200 Mg PO DAILY07 08/16/14 Reported Metoprolol Tartrate 25 Mg Tablet 12.5 Tab PO BID 05/21/14 Reported Hydrocodone-Apap 5-325 (Hydrocodone Bit/Acetaminophen) 1 Each Tablet 1 Tab PO PRN Q4HRS PRN 05/21/14 Reported Plavix (Clopidogrel Bisulfate) 75 Mg Tablet 75 Mg PO DAILYWBKFT 04/19/14 Rx Nexium 24Hr (Esomeprazole Magnesium) 20 Mg Capsule.dr 40 Mg PO 04/16/14 Reported Plaquenil (Hydroxychloroquine Sulfate) 200 Mg Tablet 200 Mg PO BID 04/16/14 Reported Comments cxr reviewed, l infilt Impression . 1. Acute on chronic hypoxemic respiratory failure, multifactorial in etiology. 2. Abnormal chest x-ray. 3. Pneumonia. 4. Acute exacerbation of chronic obstructive pulmonary disease. 5. Acute diastolic congestive heart failure. 6. Leukocytosis. 7. Gastroesophageal reflux disease. 8. Coronary artery disease. 9. allergic rhinitis Plan . 1. Titrate FiO2 to keep O2 saturation 92%. 2. Continue vancomycin and Zosyn. 3. Repeat cxr with improving left lung infiltrate. Hold ct chest for now. (Pt on amiodarone) 4. Bronchodilator. 5. Inhaled corticosteroid. 6. Lovenox for DVT prophylaxis. 7. Stress ulcer prophylaxis. 8. Influenza A and B neg . ELIO ADAM MD Jul 07, 2016 10:03
[2016-07-07] MEDS: GUAIFENESIN DM 600/30MG TAB.ER.12H. PO SCH ×2 (10:04→20:20)
[2016-07-07] MEDS: FUROSEMIDE 40 MG TABLET PO SCH (10:04)
[2016-07-07 10:51] VITALS: BP 123/63
--- NOTE | 2016-07-07 11:20 | PDOC ---
PROGRESS NOTES Subjective Subjective Patient is feeling well today. She denies any chest pain, shortness of breath or dizziness. Objective Objective Vital Signs Date Time Temp Pulse Resp B/P Pulse Ox O2 Delivery O2 Flow Rate FiO2 07/07/16 10:51 98.1 67 16 123/63 96 Nasal Cannula 4.0 98.1 Intake and Output 07/07/16 07:00 Intake Total 800 ml Balance 800 ml Intake Oral 800 ml # Voids 5 Physical Exam Physical Exam No change in cardiac exam Assessment Assessment Problems Medical Problems: (1) Acute and chronic respiratory failure with hypoxia Status: Acute (2) COPD exacerbation Status: Acute (3) Healthcare-associated pneumonia Status: Acute (4) Hypoxia Status: Acute Plan Plan of Care Stable from a cardiac standpoint. BP well controlled on metoprolol. I agree with current plan and plan to discharge home with home health. Comment Review of Relevant I have reviewed the following items nam (where applicable) has been applied. Labs Laboratory Tests Test 07/05/16 15:15 07/07/16 03:39 Vancomycin Level Trough 6.4mcg/mL (10.0-20.0) 12.9mcg/mL (10.0-20.0) Vancomycin Last Dose Date 07/06/16 Vancomycin Last Dose Time 1600 White Blood Count 13.3x10^3/uL (4.0-11.0) Red Blood Count 4.09x10^6/uL (3.50-5.40) Hemoglobin 8.6g/dL (12.0-15.5) Hematocrit 28.7% (36.0-47.0) Mean Corpuscular Volume 70fL (79-100) Mean Corpuscular Hemoglobin 21pg (25-35) Mean Corpuscular Hemoglobin Concent 30g/dL (31-37) Red Cell Distribution Width 17.8% (11.5-14.5) Platelet Count 178x10^3/uL (140-400) Sodium Level 145mmol/L (136-145) Potassium Level 3.0mmol/L (3.5-5.1) Chloride Level 105mmol/L (98-107) Carbon Dioxide Level 31mmol/L (21-32) Anion Gap 9 (6-14) Blood Urea Nitrogen 17mg/dL (7-20) Creatinine 0.7mg/dL (0.6-1.0) Estimated GFR (Cockcroft-Gault) 80.7 Glucose Level 94mg/dL (70-99) Calcium Level 7.9mg/dL (8.5-10.1) Laboratory Tests Test 07/07/16 03:39 White Blood Count 13.3x10^3/uL (4.0-11.0) Red Blood Count 4.09x10^6/uL (3.50-5.40) Hemoglobin 8.6g/dL (12.0-15.5) Hematocrit 28.7% (36.0-47.0) Mean Corpuscular Volume 70fL (79-100) Mean Corpuscular Hemoglobin 21pg (25-35) Mean Corpuscular Hemoglobin Concent 30g/dL (31-37) Red Cell Distribution Width 17.8% (11.5-14.5) Platelet Count 178x10^3/uL (140-400) Sodium Level 145mmol/L (136-145) Potassium Level 3.0mmol/L (3.5-5.1) Chloride Level 105mmol/L (98-107) Carbon Dioxide Level 31mmol/L (21-32) Anion Gap 9 (6-14) Blood Urea Nitrogen 17mg/dL (7-20) Creatinine 0.7mg/dL (0.6-1.0) Estimated GFR (Cockcroft-Gault) 80.7 Glucose Level 94mg/dL (70-99) Calcium Level 7.9mg/dL (8.5-10.1) Vancomycin Level Trough 12.9mcg/mL (10.0-20.0) Vancomycin Last Dose Date 07/06/16 Vancomycin Last Dose Time 1600 Medications Current Medications Albuterol/ Ipratropium (Duoneb) 3 ml STK-MED ONCE .ROUTE ; Start 07/03/16 at 12: 05; Stop 07/03/16 at 12:06; Status DC Albuterol/ Ipratropium (Duoneb) 3 ml 1X ONCE NEB ; Start 07/03/16 at 12:15; Stop 07/03/16 at 12:16; Status DC Prednisone (Prednisone) 50 mg 1X ONCE PO Last administered on 07/03/16t 12:45 ; Start 07/03/16 at 12:15; Stop 07/03/16 at 12:16; Status DC Ondansetron HCl (Zofran) 4 mg PRN Q8HRS PRN IV NAUSEA/VOMITING; Start 07/03/16 at 12:45; Stop 07/04/16 at 12:44; Status DC Albuterol/ Ipratropium (Duoneb) 3 ml RTQID NEB Last administered on 07/04/16 11:38; Start 07/03/16 at 16:00; Stop 07/04/16 at 13:28; Status DC Vancomycin HCl (Vanco Per Pharmacy) 1 each PRN DAILY PRN MC SEE COMMENTS Last administered on 07/07/16 05:32; Start 07/03/16 at 13:15 Piperacillin Sod/ Tazobactam Sod 1 each 1 each PRN DAILY PRN MC SEE COMMENTS; Start 07/03/16 at 13:15 Vancomycin HCl 1.75 gm/Sodium Chloride 500 ml @ 250 mls/hr 1X ONCE IV Last administered on 07/03/16 15:54; Start 07/03/16 at 14:00; Stop 07/03/16 at 15:59 ; Status DC Piperacillin Sod/ Tazobactam Sod/ Sodium Chloride (Zosyn/Iv Sodium Chloride 0.9 % 100ml) 100 ml @ 200 mls/hr Q6HRS IV Last administered on 07/07/16 05:42; Start 07/03/16 at 13:30 Budesonide (Pulmicort) 0.5 mg RTBID NEB Last administered on 07/07/16 09:16; Start 07/03/16 at 20:00 Pantoprazole Sodium (Protonix) 40 mg DAILYAC PO Last administered on 07/07/16 09:44; Start 07/03/16 at 14:30 Enoxaparin Sodium 40 mg 40 mg Q24H SQ Last administered on 07/03/16 15:53; Start 07/03/16 at 15:00; Stop 07/04/16 at 09:59; Status DC Vancomycin HCl/ Sodium Chloride (Iv Sodium Chloride 0.9% 250ml) 250 ml @ 250 mls/hr Q24H IV Last administered on 07/04/16 16:52; Start 07/04/16 at 16:00; Stop 07/05/16 at 15:56; Status DC Vancomycin HCl 1 each 1X ONCE MC Last administered on 07/05/16 15:30; Start 07/05/16 at 15:30; Stop 07/05/16 at 15:31; Status DC Promethazine HCl/ Codeine (Phenergan With Codeine) 5 ml PRN Q4HRS PRN PO COUGH Last administered on 07/07/16 09:45; Start 07/03/16 at 23:45 Amiodarone HCl (Cordarone) 200 mg DAILY07 PO Last administered on 07/07/16 06: 16; Start 07/04/16 at 09:30 Aspirin (Children'S Aspirin) 81 mg DAILYWBKFT PO Last administered on 09:46; Start 07/04/16 at 09:30 Clopidogrel Bisulfate (Plavix) 75 mg DAILYWBKFT PO Last administered on 09:46; Start 07/04/16 at 09:30 Furosemide (Lasix) 20 mg DAILY PO Last administered on 07/04/16 09:54; Start 07/04/16 at 09:30; Stop 07/04/16 at 14:08; Status DC Hydroxychloroquine Sulfate (Plaquenil) 200 mg BID PO Last administered on 09:45; Start 07/04/16 at 09:30 Albuterol/ Ipratropium (Duoneb) 3 ml RTQID NEB Last administered on 07/07/16 09:16; Start 07/04/16 at 12:00 Isosorbide Mononitrate (Imdur) 30 mg DAILY PO Last administered on 07/07/16 09 :46; Start 07/04/16 at 09:30 Metoprolol Tartrate (Lopressor) 12.5 mg BID PO Last administered on 07/07/16 09:45; Start 07/04/16 at 09:30 Potassium Chloride (Klor-Con) 20 meq DAILYWBKFT PO Last administered on 08:41; Start 07/04/16 at 09:30; Stop 07/07/16 at 08:26; Status DC Non-Formulary Medication 1 puff BID IH ; Start 07/04/16 at 09:00; Status UNV Atorvastatin Calcium (Lipitor) 10 mg QHS PO Last administered on 07/06/16 20: 50; Start 07/04/16 at 21:00 Ropinirole HCl (Requip) 0.5 mg DAILY PO ; Start 07/04/16 at 09:30; Stop at 09:30; Status DC Non-Formulary Medication 1 tab QHS PO ; Start 07/04/16 at 21:00; Status UNV Pantoprazole Sodium (Protonix) 40 mg DAILYAC PO ; Start 07/04/16 at 09:30; Status UNV Montelukast Sodium (Singulair) 10 mg QHS PO Last administered on 07/06/16 20: 49; Start 07/04/16 at 21:00 Enoxaparin Sodium (Lovenox 40mg Syringe) 40 mg Q24H SQ ; Start 07/04/16 at 09:15 ; Status UNV Ropinirole HCl (Requip) 0.5 mg BID PO Last administered on 07/07/16 09:43; Start 07/04/16 at 09:30 Furosemide 40 mg 40 mg DAILY IVP Last administered on 07/06/16 09:07; Start at 09:00; Stop 07/07/16 at 08:26; Status DC Vancomycin HCl/ Sodium Chloride (Iv Sodium Chloride 0.9% 250ml) 250 ml @ 250 mls/hr Q12H IV Last administered on 07/07/16 04:25; Start 07/05/16 at 16:00; Stop 07/07/16 at 05:27; Status DC Vancomycin HCl 1 each 1 each 1X ONCE MC ; Start 07/07/16 at 03:30; Stop at 03:31; Status DC Vancomycin HCl/ Sodium Chloride (Iv Sodium Chloride 0.9% 250ml) 250 ml @ 167 mls/hr Q12H IV ; Start 07/07/16 at 16:00 Vancomycin HCl 1 each 1X ONCE MC ; Start 07/08/16 at 15:30; Stop 07/08/16 at 15 :31 Potassium Chloride (Klor-Con) 20 meq TIDWMEALS PO Last administered on 09:47; Start 07/07/16 at 09:00 Furosemide (Lasix) 40 mg DAILY PO Last administered on 07/07/16 10:04; Start 07/07/16 at 09:00 Guaifenesin (MUCINEX ER with DM) 1 tab BID PO Last administered on 07/07/16t 10 :04; Start 07/07/16 at 09:00 Active Scripts Active Isosorbide Mononitrate Er (Isosorbide Mononitrate) 30 Mg Tab.er.24h 1 Tab PO DAILY Duoneb 0.5-3(2.5) Mg/3 Ml (Albuterol/Ipratropium) 3 Ml Ampul.neb 3 Ml NEB QID Plavix (Clopidogrel Bisulfate) 75 Mg Tablet 75 Mg PO DAILYWBKFT Reported Requip (Ropinirole Hcl) 0.5 Mg Tablet 0.5 Mg PO DAILY Prednisone 20 Mg Tablet 1 Tab PO DAILY Advair 250-50 Diskus (Fluticasone/Salmeterol) 1 Each Disk.w.dev 1 Puff IH BID Requip (Ropinirole Hcl) 0.5 Mg Tablet 1 Tab PO QHS Pravastatin Sodium 40 Mg Tablet 1 Tab PO DAILY Potassium Chloride 20 Meq Tab.er.prt 1 Tab PO DAILY Lasix (Furosemide) 40 Mg Tablet 20 Mg PO DAILY Pacerone (Amiodarone Hcl) 200 Mg Tablet 200 Mg PO DAILY07 Metoprolol Tartrate 25 Mg Tablet 12.5 Tab PO BID Nexium 24Hr (Esomeprazole Magnesium) 20 Mg Capsule.dr 40 Mg PO Aspirin 81 Mg Tab.chew 1 Tab PO DAILY Plaquenil (Hydroxychloroquine Sulfate) 200 Mg Tablet 200 Mg PO BID Vitals/I & O Vital Sign - Last 24 Hours 07/06/16 07/06/16 07/06/16 07/06/16 15:23 19:23 20:00 20:06 Temp 98.1 98.1 Pulse 82 Resp 18 B/P 122/59 Pulse Ox 95 93 95 O2 Delivery Nasal Cannula Nasal Cannula Nasal Cannula O2 Flow Rate 3.5 5.0 3.5 07/06/16 07/06/16 07/06/16 07/07/16 20:07 20:51 23:26 02:31 Temp 97.5 98.1 97.5 98.1 Pulse 82 71 67 Resp 18 18 B/P 122/57 112/42 118/51 Pulse Ox 95 96 96 O2 Delivery Nasal Cannula Nasal Cannula Nasal Cannula O2 Flow Rate 3.5 07/07/16 07/07/16 07/07/16 07/07/16 06:16 07:00 08:00 09:17 Temp 98.1 98.1 Pulse 63 61 Resp 18 B/P 119/52 130/79 Pulse Ox 94 99 O2 Delivery Nasal Cannula Nasal Cannula O2 Flow Rate 3.5 3.5 07/07/16 07/07/16 07/07/16 07/07/16 09:21 09:45 09:46 10:51 Temp 98.1 98.1 Pulse 61 61 67 Resp 16 B/P 130/79 130/79 123/63 Pulse Ox 99 96 O2 Delivery Nasal Cannula Nasal Cannula O2 Flow Rate 3.5 4.0 Intake and Output 07/06/16 07/06/16 07/07/16 15:00 23:00 07:00 Intake Total 600 ml 200 ml Balance 600 ml 200 ml IRMA PARDO MD Jul 07, 2016 11:20
[2016-07-07 14:52] VITALS: BP 108/38
[2016-07-07] MEDS: VANCOMYCIN 1.25 GM in IV NORMAL SALINE 250ML 250 ML IV SCH ×3 (16:23→19:49)
[2016-07-07] MEDS: MONTELUKAST SODIUM 10 MG TABLET. PO SCH (20:20)
[2016-07-07] MEDS: ATORVASTATIN CALCIUM 10 MG TABLET. PO SCH (20:21)
[2016-07-07 20:29] VITALS: BP 122/54
[2016-07-07 23:13] VITALS: BP 119/55
[2016-07-08] MEDS: PIPERACILLIN/TAZOBACTAM 4.5 GM in IV NORMAL SALINE 100ML 100 ML IV SCH ×5 (02:08→23:29)
[2016-07-08] MEDS: PROMETH/CODEINE 6.25/10MG 5 ML SYRUP. PO PRN ×4 (02:12→23:29)
[2016-07-08 04:02] LABS: CALCIUM 8.1 mg/dL (8.5-10.1); GFR 53.5; POTASSIUM 3.1 mmol/L (3.5-5.1)
[2016-07-08] MEDS: AMIODARONE HCL 200 MG TABLET PO SCH (06:02)
[2016-07-08 06:22] VITALS: BP 136/60
[2016-07-08] MEDS: BUDESONIDE 0.5 MG/2 ML NEBU NEB SCH ×2 (07:36→19:30)
[2016-07-08] MEDS: IPRATRPIUM/ALBUTEROL 0.5/2.5MG 3 ML NEBU. NEB SCH ×4 (07:36→19:05)
[2016-07-08] MEDS: VANCOMYCIN 1.25 GM in IV NORMAL SALINE 250ML 250 ML IV SCH (07:58)
[2016-07-08] MEDS: CLOPIDOGREL BISULFATE 75 MG TABLET PO SCH (08:01)
[2016-07-08] MEDS: ISOSORBIDE MONONITRATE ER 30 MG TAB.ER.24H PO SCH (08:02)
[2016-07-08] MEDS: rOPINIRole 0.25 MG TABLET. PO SCH ×2 (08:03→19:53)
[2016-07-08] MEDS: METOPROLOL TART IMMED RELEASE 25 MG TABLET PO SCH ×2 (08:03→19:52)
[2016-07-08] MEDS: HYDROXYCHLOROQUINE 200 MG TABLET PO SCH ×2 (08:04→19:51)
[2016-07-08] MEDS: POTASSIUM CHLORIDE 20 MEQ TABLET.ER. PO SCH ×3 (08:04→18:23)
[2016-07-08] MEDS: PANTOPRAZOLE 40 MG TABLET. PO SCH (08:04)
[2016-07-08] MEDS: FUROSEMIDE 40 MG TABLET PO SCH (08:04)
[2016-07-08] MEDS: ASPIRIN 81 MG TAB.CHEW PO SCH (08:04)
[2016-07-08] MEDS: GUAIFENESIN DM 600/30MG TAB.ER.12H. PO SCH ×2 (08:15→19:52)
--- NOTE | 2016-07-08 09:15 | PDOC ---
PROGRESS NOTES Subjective Subjective Patient reports cough is gradually improving. Objective Objective Vital Signs Date Time Temp Pulse Resp B/P Pulse Ox O2 Delivery O2 Flow Rate FiO2 07/08/16 08:07 Nasal Cannula 3.5 07/08/16 08:03 66 136/60 07/08/16 07:45 98 07/08/16 06:22 97.5 18 97.5 Intake and Output 07/08/16 07:00 Intake Total 368 ml Output Total 850 ml Balance -482 ml Intake Oral 368 ml Output Urine Total 850 ml # Voids 3 Physical Exam Abdomen: Normal bowel sounds, Soft, No tenderness Heart: Regular rate Extremities: No edema General: Alert, Oriented X3, No acute distress Lungs: Other (BS moderately decreased throughout, otherwise CTA) Assessment Assessment Problems Medical Problems: (1) Acute and chronic respiratory failure with hypoxia Status: Acute (2) COPD exacerbation Status: Acute (3) Healthcare-associated pneumonia Status: Acute (4) Hypoxia Status: Acute Plan Plan of Care 1. Acute on chronic respiratory failure with pneumonia and COPD - slowly improving and O2 needs decreasing. Possible discharge home tomorrow after 5 full days of IV abx. Continue Vancomycin and Zosyn with nebs. Improving in PT also. Anticipate she will need portable O2 at home, will order 6 minute walk on discharge to document this. 2. CHF with mild systolic dysfunction on last Echo - patient was on Lasix 20mg daily prior to admission. Will decrease to this dose for tomorrow, continue increased K+ as still low. 3. HTN - controlled, continue present meds. Comment Review of Relevant I have reviewed the following items nam (where applicable) has been applied. Labs Laboratory Tests Test 07/07/16 03:39 07/08/16 02:50 White Blood Count 13.3x10^3/uL (4.0-11.0) Red Blood Count 4.09x10^6/uL (3.50-5.40) Hemoglobin 8.6g/dL (12.0-15.5) Hematocrit 28.7% (36.0-47.0) Mean Corpuscular Volume 70fL (79-100) Mean Corpuscular Hemoglobin 21pg (25-35) Mean Corpuscular Hemoglobin Concent 30g/dL (31-37) Red Cell Distribution Width 17.8% (11.5-14.5) Platelet Count 178x10^3/uL (140-400) Sodium Level 145mmol/L (136-145) 145mmol/L (136-145) Potassium Level 3.0mmol/L (3.5-5.1) 3.1mmol/L (3.5-5.1) Chloride Level 105mmol/L (98-107) 107mmol/L (98-107) Carbon Dioxide Level 31mmol/L (21-32) 30mmol/L (21-32) Anion Gap 9 (6-14) 8 (6-14) Blood Urea Nitrogen 17mg/dL (7-20) 13mg/dL (7-20) Creatinine 0.7mg/dL (0.6-1.0) 1.0mg/dL (0.6-1.0) Estimated GFR (Cockcroft-Gault) 80.7 53.5 Glucose Level 94mg/dL (70-99) 94mg/dL (70-99) Calcium Level 7.9mg/dL (8.5-10.1) 8.1mg/dL (8.5-10.1) Vancomycin Level Trough 12.9mcg/mL (10.0-20.0) Vancomycin Last Dose Date 07/06/16 Vancomycin Last Dose Time 1600 Laboratory Tests Test 07/08/16 02:50 Sodium Level 145mmol/L (136-145) Potassium Level 3.1mmol/L (3.5-5.1) Chloride Level 107mmol/L (98-107) Carbon Dioxide Level 30mmol/L (21-32) Anion Gap 8 (6-14) Blood Urea Nitrogen 13mg/dL (7-20) Creatinine 1.0mg/dL (0.6-1.0) Estimated GFR (Cockcroft-Gault) 53.5 Glucose Level 94mg/dL (70-99) Calcium Level 8.1mg/dL (8.5-10.1) Medications Current Medications Albuterol/ Ipratropium (Duoneb) 3 ml STK-MED ONCE .ROUTE ; Start 07/03/16 at 12: 05; Stop 07/03/16 at 12:06; Status DC Albuterol/ Ipratropium (Duoneb) 3 ml 1X ONCE NEB ; Start 07/03/16 at 12:15; Stop 07/03/16 at 12:16; Status DC Prednisone (Prednisone) 50 mg 1X ONCE PO Last administered on 07/03/16 12:45 ; Start 07/03/16 at 12:15; Stop 07/03/16 at 12:16; Status DC Ondansetron HCl (Zofran) 4 mg PRN Q8HRS PRN IV NAUSEA/VOMITING; Start 07/03/16 at 12:45; Stop 07/04/16 at 12:44; Status DC Albuterol/ Ipratropium (Duoneb) 3 ml RTQID NEB Last administered on 07/04/16 11:38; Start 07/03/16 at 16:00; Stop 07/04/16 at 13:28; Status DC Vancomycin HCl (Vanco Per Pharmacy) 1 each PRN DAILY PRN MC SEE COMMENTS Last administered on 07/07/16 05:32; Start 07/03/16 at 13:15 Piperacillin Sod/ Tazobactam Sod 1 each 1 each PRN DAILY PRN MC SEE COMMENTS; Start 07/03/16 at 13:15 Vancomycin HCl 1.75 gm/Sodium Chloride 500 ml @ 250 mls/hr 1X ONCE IV Last administered on 07/03/16 15:54; Start 07/03/16 at 14:00; Stop 07/03/16 at 15:59 ; Status DC Piperacillin Sod/ Tazobactam Sod/ Sodium Chloride (Zosyn/Iv Sodium Chloride 0.9 % 100ml) 100 ml @ 200 mls/hr Q6HRS IV Last administered on 07/08/16 05:54; Start 07/03/16 at 13:30 Budesonide (Pulmicort) 0.5 mg RTBID NEB Last administered on 07/08/16 07:36; Start 07/03/16 at 20:00 Pantoprazole Sodium (Protonix) 40 mg DAILYAC PO Last administered on 07/08/16 08:04; Start 07/03/16 at 14:30 Enoxaparin Sodium 40 mg 40 mg Q24H SQ Last administered on 07/03/16 15:53; Start 07/03/16 at 15:00; Stop 07/04/16 at 09:59; Status DC Vancomycin HCl/ Sodium Chloride (Iv Sodium Chloride 0.9% 250ml) 250 ml @ 250 mls/hr Q24H IV Last administered on 07/04/16 16:52; Start 07/04/16 at 16:00; Stop 07/05/16 at 15:56; Status DC Vancomycin HCl 1 each 1X ONCE MC Last administered on 07/05/16 15:30; Start 07/05/16 at 15:30; Stop 07/05/16 at 15:31; Status DC Promethazine HCl/ Codeine (Phenergan With Codeine) 5 ml PRN Q4HRS PRN PO COUGH Last administered on 07/08/16 06:02; Start 07/03/16 at 23:45 Amiodarone HCl (Cordarone) 200 mg DAILY07 PO Last administered on 07/08/16 06: 02; Start 07/04/16 at 09:30 Aspirin (Children'S Aspirin) 81 mg DAILYWBKFT PO Last administered on 08:04; Start 07/04/16 at 09:30 Clopidogrel Bisulfate (Plavix) 75 mg DAILYWBKFT PO Last administered on 08:01; Start 07/04/16 at 09:30 Furosemide (Lasix) 20 mg DAILY PO Last administered on 07/04/16 09:54; Start 07/04/16 at 09:30; Stop 07/04/16 at 14:08; Status DC Hydroxychloroquine Sulfate (Plaquenil) 200 mg BID PO Last administered on 08:04; Start 07/04/16 at 09:30 Albuterol/ Ipratropium (Duoneb) 3 ml RTQID NEB Last administered on 07/08/16 07:36; Start 07/04/16 at 12:00 Isosorbide Mononitrate (Imdur) 30 mg DAILY PO Last administered on 07/08/16 08 :02; Start 07/04/16 at 09:30 Metoprolol Tartrate (Lopressor) 12.5 mg BID PO Last administered on 07/08/16 08:03; Start 07/04/16 at 09:30 Potassium Chloride (Klor-Con) 20 meq DAILYWBKFT PO Last administered on 08:41; Start 07/04/16 at 09:30; Stop 07/07/16 at 08:26; Status DC Non-Formulary Medication 1 puff BID IH ; Start 07/04/16 at 09:00; Status UNV Atorvastatin Calcium (Lipitor) 10 mg QHS PO Last administered on 07/07/16 20: 21; Start 07/04/16 at 21:00 Ropinirole HCl (Requip) 0.5 mg DAILY PO ; Start 07/04/16 at 09:30; Stop at 09:30; Status DC Non-Formulary Medication 1 tab QHS PO ; Start 07/04/16 at 21:00; Status UNV Pantoprazole Sodium (Protonix) 40 mg DAILYAC PO ; Start 07/04/16 at 09:30; Status UNV Montelukast Sodium (Singulair) 10 mg QHS PO Last administered on 07/07/16 20: 20; Start 07/04/16 at 21:00 Enoxaparin Sodium (Lovenox 40mg Syringe) 40 mg Q24H SQ ; Start 07/04/16 at 09:15 ; Status UNV Ropinirole HCl (Requip) 0.5 mg BID PO Last administered on 07/08/16 08:03; Start 07/04/16 at 09:30 Furosemide 40 mg 40 mg DAILY IVP Last administered on 07/06/16 09:07; Start at 09:00; Stop 07/07/16 at 08:26; Status DC Vancomycin HCl/ Sodium Chloride (Iv Sodium Chloride 0.9% 250ml) 250 ml @ 250 mls/hr Q12H IV Last administered on 07/07/16 04:25; Start 07/05/16 at 16:00; Stop 07/07/16 at 05:27; Status DC Vancomycin HCl 1 each 1 each 1X ONCE MC ; Start 07/07/16 at 03:30; Stop at 03:31; Status DC Vancomycin HCl/ Sodium Chloride (Iv Sodium Chloride 0.9% 250ml) 250 ml @ 167 mls/hr Q12H IV Last administered on 07/08/16 07:58; Start 07/07/16 at 16:00 Vancomycin HCl 1 each 1X ONCE MC ; Start 07/08/16 at 19:30; Stop 07/08/16 at 19 :31 Potassium Chloride (Klor-Con) 20 meq TIDWMEALS PO Last administered on 08:04; Start 07/07/16 at 09:00 Furosemide (Lasix) 40 mg DAILY PO Last administered on 07/08/16 08:04; Start 07/07/16 at 09:00 Guaifenesin (MUCINEX ER with DM) 1 tab BID PO Last administered on 07/08/16 08 :15; Start 07/07/16 at 09:00 Active Scripts Active Isosorbide Mononitrate Er (Isosorbide Mononitrate) 30 Mg Tab.er.24h 1 Tab PO DAILY Duoneb 0.5-3(2.5) Mg/3 Ml (Albuterol/Ipratropium) 3 Ml Ampul.neb 3 Ml NEB QID Plavix (Clopidogrel Bisulfate) 75 Mg Tablet 75 Mg PO DAILYWBKFT Reported Requip (Ropinirole Hcl) 0.5 Mg Tablet 0.5 Mg PO DAILY Prednisone 20 Mg Tablet 1 Tab PO DAILY Advair 250-50 Diskus (Fluticasone/Salmeterol) 1 Each Disk.w.dev 1 Puff IH BID Requip (Ropinirole Hcl) 0.5 Mg Tablet 1 Tab PO QHS Pravastatin Sodium 40 Mg Tablet 1 Tab PO DAILY Potassium Chloride 20 Meq Tab.er.prt 1 Tab PO DAILY Lasix (Furosemide) 40 Mg Tablet 20 Mg PO DAILY Pacerone (Amiodarone Hcl) 200 Mg Tablet 200 Mg PO DAILY07 Metoprolol Tartrate 25 Mg Tablet 12.5 Tab PO BID Nexium 24Hr (Esomeprazole Magnesium) 20 Mg Capsule.dr 40 Mg PO Aspirin 81 Mg Tab.chew 1 Tab PO DAILY Plaquenil (Hydroxychloroquine Sulfate) 200 Mg Tablet 200 Mg PO BID Vitals/I & O Vital Sign - Last 24 Hours 07/07/16 07/07/16 07/07/16 07/07/16 09:17 09:21 09:45 09:46 Pulse 61 61 B/P 130/79 130/79 Pulse Ox 99 99 O2 Delivery Nasal Cannula Nasal Cannula O2 Flow Rate 3.5 3.5 07/07/16 07/07/16 07/07/16 07/07/16 10:51 11:26 14:52 15:45 Temp 98.1 98.1 98.1 98.1 Pulse 67 63 Resp 16 18 B/P 123/63 108/38 Pulse Ox 96 92 O2 Delivery Nasal Cannula Nasal Cannula Nasal Cannula Nasal Cannula O2 Flow Rate 4.0 3.5 3.5 3.5 07/07/16 07/07/16 07/07/16 07/07/16 20:00 20:12 20:28 20:29 Temp 98.1 98.1 Pulse 67 67 Resp 16 B/P 122/54 122/54 Pulse Ox 97 98 O2 Delivery Nasal Cannula Nasal Cannula Nasal Cannula O2 Flow Rate 4.0 3.5 5.0 07/07/16 07/08/16 07/08/16 07/08/16 23:13 06:02 06:22 07:38 Temp 97.7 97.5 97.7 97.5 Pulse 70 66 66 Resp 16 18 B/P 119/55 136/60 136/60 Pulse Ox 91 93 98 O2 Delivery Nasal Cannula Nasal Cannula Nasal Cannula O2 Flow Rate 3.5 3.5 07/08/16 07/08/16 07/08/16 07/08/16 07:45 08:02 08:03 08:07 Pulse 66 66 B/P 136/60 136/60 Pulse Ox 98 O2 Delivery Nasal Cannula Nasal Cannula O2 Flow Rate 3.5 3.5 Intake and Output 07/07/16 07/07/16 07/08/16 15:00 23:00 07:00 Intake Total 118 ml 250 ml 0 ml Output Total 350 ml 500 ml Balance -232 ml -250 ml 0 ml MILADIS CESPEDES MD Jul 08, 2016 09:15
--- NOTE | 2016-07-08 09:50 | PDOC ---
PULMONARY PROGRESS NOTES Subjective mild cough, better no sputum, Vitals Vital Signs Date Time Temp Pulse Resp B/P Pulse Ox O2 Delivery O2 Flow Rate FiO2 07/08/16 08:07 Nasal Cannula 3.5 07/08/16 08:03 66 136/60 07/08/16 07:45 98 07/08/16 06:22 97.5 18 97.5 Comments ros as above, other sys otherwise neg General: Alert, No acute distress HEENT: Other (nc at perrl) Lungs: Other (decrease bs) Cardiovascular: S1, S2 Abdomen: Soft, Non-tender, Other (no mass) Neuro Exam: Alert Extremities: No Edema Skin: Warm Labs Laboratory Tests Test 07/07/16 03:39 07/08/16 02:50 White Blood Count 13.3x10^3/uL (4.0-11.0) Red Blood Count 4.09x10^6/uL (3.50-5.40) Hemoglobin 8.6g/dL (12.0-15.5) Hematocrit 28.7% (36.0-47.0) Mean Corpuscular Volume 70fL (79-100) Mean Corpuscular Hemoglobin 21pg (25-35) Mean Corpuscular Hemoglobin Concent 30g/dL (31-37) Red Cell Distribution Width 17.8% (11.5-14.5) Platelet Count 178x10^3/uL (140-400) Sodium Level 145mmol/L (136-145) 145mmol/L (136-145) Potassium Level 3.0mmol/L (3.5-5.1) 3.1mmol/L (3.5-5.1) Chloride Level 105mmol/L (98-107) 107mmol/L (98-107) Carbon Dioxide Level 31mmol/L (21-32) 30mmol/L (21-32) Anion Gap 9 (6-14) 8 (6-14) Blood Urea Nitrogen 17mg/dL (7-20) 13mg/dL (7-20) Creatinine 0.7mg/dL (0.6-1.0) 1.0mg/dL (0.6-1.0) Estimated GFR (Cockcroft-Gault) 80.7 53.5 Glucose Level 94mg/dL (70-99) 94mg/dL (70-99) Calcium Level 7.9mg/dL (8.5-10.1) 8.1mg/dL (8.5-10.1) Vancomycin Level Trough 12.9mcg/mL (10.0-20.0) Vancomycin Last Dose Date 07/06/16 Vancomycin Last Dose Time 1600 Laboratory Tests Test 07/08/16 02:50 Sodium Level 145mmol/L (136-145) Potassium Level 3.1mmol/L (3.5-5.1) Chloride Level 107mmol/L (98-107) Carbon Dioxide Level 30mmol/L (21-32) Anion Gap 8 (6-14) Blood Urea Nitrogen 13mg/dL (7-20) Creatinine 1.0mg/dL (0.6-1.0) Estimated GFR (Cockcroft-Gault) 53.5 Glucose Level 94mg/dL (70-99) Calcium Level 8.1mg/dL (8.5-10.1) Medications Active Scripts Medications Dose Route/Sig Days Date Category Prednisone 20 Mg Tablet 1 Tab PO DAILY 9 06/30/16 Rx Advair 250-50 Diskus (Fluticasone/Salmeterol) 1 Each Disk.w.dev 1 Puff IH BID 06/26/16 Reported Requip (Ropinirole Hcl) 0.5 Mg Tablet 1 Tab PO QHS 06/26/16 Reported Albuterol Sulfate Neb Soln (Albuterol Sulfate) 1.25 Mg/3 Ml Vial.neb 1 Vial NEB Q4HRS 05/11/16 Rx Isosorbide Mononitrate Er (Isosorbide Mononitrate) 30 Mg Tab.er.24h 1 Tab PO DAILY 05/08/16 Rx Duoneb 0.5-3(2.5) Mg/3 Ml (Albuterol/Ipratropium) 3 Ml Ampul.neb 3 Ml NEB QID 05/08/16 Rx Pravastatin Sodium 40 Mg Tablet 1 Tab PO DAILY 05/07/16 Reported Potassium Chloride 20 Meq Tab.er.prt 1 Tab PO DAILY 08/20/14 Reported Lasix (Furosemide) 40 Mg Tablet 20 Mg PO DAILY 08/20/14 Reported Pacerone (Amiodarone Hcl) 200 Mg Tablet 200 Mg PO DAILY07 08/16/14 Reported Metoprolol Tartrate 25 Mg Tablet 12.5 Tab PO BID 05/21/14 Reported Hydrocodone-Apap 5-325 (Hydrocodone Bit/Acetaminophen) 1 Each Tablet 1 Tab PO PRN Q4HRS PRN 05/21/14 Reported Plavix (Clopidogrel Bisulfate) 75 Mg Tablet 75 Mg PO DAILYWBKFT 04/19/14 Rx Nexium 24Hr (Esomeprazole Magnesium) 20 Mg Capsule.dr 40 Mg PO 04/16/14 Reported Plaquenil (Hydroxychloroquine Sulfate) 200 Mg Tablet 200 Mg PO BID 04/16/14 Reported Comments cxr reviewed, l infilt Impression . 1. Acute on chronic hypoxemic respiratory failure, multifactorial in etiology. 2. Abnormal chest x-ray. 3. Pneumonia. 4. Acute exacerbation of chronic obstructive pulmonary disease. 5. Acute diastolic congestive heart failure. 6. Leukocytosis. 7. Gastroesophageal reflux disease. 8. Coronary artery disease. 9. allergic rhinitis Plan . 1. Titrate FiO2 to keep O2 saturation 92%. 2. Can d/c vancomycin today. change Zosyn to PO augment in am 3. Repeat cxr with improving left lung infiltrate. Hold ct chest for now. (Pt on amiodarone) 4. Bronchodilator. 5. Inhaled corticosteroid. 6. Lovenox for DVT prophylaxis. 7. Stress ulcer prophylaxis. 8. Influenza A and B neg . 9. Possible d/c in [facility] You MD Jul 08, 2016 09:50
[2016-07-08 11:00] VITALS: BP 118/46
--- NOTE | 2016-07-08 13:52 | PDOC ---
PROGRESS NOTES Subjective Subjective Pt A&Ox3, cooperative and sitting in chair. Denies having chest pain. SOB with exertion remains. Otherwise no new complaints at this time Objective Objective Vital Signs Date Time Temp Pulse Resp B/P Pulse Ox O2 Delivery O2 Flow Rate FiO2 07/08/16 11:51 98 Nasal Cannula 3.5 07/08/16 11:00 97.9 62 18 118/46 97.9 Intake and Output 07/08/16 07:00 Intake Total 368 ml Output Total 850 ml Balance -482 ml Intake Oral 368 ml Output Urine Total 850 ml # Voids 3 Physical Exam Abdomen: Normal bowel sounds, Soft, No tenderness, No hepatosplenomegaly, No masses Heart: Regular rate, Normal S1, Normal S2, No murmurs, Other (S3 present) Extremities: No clubbing, No cyanosis, No edema, Normal pulses, No tenderness/ swelling General: Alert, Oriented X3, Cooperative, No acute distress Lungs: Clear to auscultation, Normal air movement Neck: Supple, No JVD, No thyromegaly Assessment Assessment Problems Medical Problems: (1) Acute and chronic respiratory failure with hypoxia Status: Acute (2) COPD exacerbation Status: Acute (3) Healthcare-associated pneumonia Status: Acute (4) Hypoxia Status: Acute Plan Plan of Care HTN controlled with Metoprolol Stable from cardiac standpoint Continue with current plan of care Comment Review of Relevant I have reviewed the following items nam (where applicable) has been applied. Labs Laboratory Tests Test 07/07/16 03:39 07/08/16 02:50 White Blood Count 13.3x10^3/uL (4.0-11.0) Red Blood Count 4.09x10^6/uL (3.50-5.40) Hemoglobin 8.6g/dL (12.0-15.5) Hematocrit 28.7% (36.0-47.0) Mean Corpuscular Volume 70fL (79-100) Mean Corpuscular Hemoglobin 21pg (25-35) Mean Corpuscular Hemoglobin Concent 30g/dL (31-37) Red Cell Distribution Width 17.8% (11.5-14.5) Platelet Count 178x10^3/uL (140-400) Sodium Level 145mmol/L (136-145) 145mmol/L (136-145) Potassium Level 3.0mmol/L (3.5-5.1) 3.1mmol/L (3.5-5.1) Chloride Level 105mmol/L (98-107) 107mmol/L (98-107) Carbon Dioxide Level 31mmol/L (21-32) 30mmol/L (21-32) Anion Gap 9 (6-14) 8 (6-14) Blood Urea Nitrogen 17mg/dL (7-20) 13mg/dL (7-20) Creatinine 0.7mg/dL (0.6-1.0) 1.0mg/dL (0.6-1.0) Estimated GFR (Cockcroft-Gault) 80.7 53.5 Glucose Level 94mg/dL (70-99) 94mg/dL (70-99) Calcium Level 7.9mg/dL (8.5-10.1) 8.1mg/dL (8.5-10.1) Vancomycin Level Trough 12.9mcg/mL (10.0-20.0) Vancomycin Last Dose Date 07/06/16 Vancomycin Last Dose Time 1600 Laboratory Tests Test 07/08/16 02:50 Sodium Level 145mmol/L (136-145) Potassium Level 3.1mmol/L (3.5-5.1) Chloride Level 107mmol/L (98-107) Carbon Dioxide Level 30mmol/L (21-32) Anion Gap 8 (6-14) Blood Urea Nitrogen 13mg/dL (7-20) Creatinine 1.0mg/dL (0.6-1.0) Estimated GFR (Cockcroft-Gault) 53.5 Glucose Level 94mg/dL (70-99) Calcium Level 8.1mg/dL (8.5-10.1) Medications Current Medications Albuterol/ Ipratropium (Duoneb) 3 ml STK-MED ONCE .ROUTE ; Start 07/03/16 at 12: 05; Stop 07/03/16 at 12:06; Status DC Albuterol/ Ipratropium (Duoneb) 3 ml 1X ONCE NEB ; Start 07/03/16 at 12:15; Stop 07/03/16 at 12:16; Status DC Prednisone (Prednisone) 50 mg 1X ONCE PO Last administered on 07/03/16t 12:45 ; Start 07/03/16 at 12:15; Stop 07/03/16 at 12:16; Status DC Ondansetron HCl (Zofran) 4 mg PRN Q8HRS PRN IV NAUSEA/VOMITING; Start 07/03/16 at 12:45; Stop 07/04/16 at 12:44; Status DC Albuterol/ Ipratropium (Duoneb) 3 ml RTQID NEB Last administered on 07/04/16 11:38; Start 07/03/16 at 16:00; Stop 07/04/16 at 13:28; Status DC Vancomycin HCl (Vanco Per Pharmacy) 1 each PRN DAILY PRN MC SEE COMMENTS Last administered on 07/07/16 05:32; Start 07/03/16 at 13:15; Stop 07/08/16 at 09:53 ; Status DC Piperacillin Sod/ Tazobactam Sod 1 each 1 each PRN DAILY PRN MC SEE COMMENTS; Start 07/03/16 at 13:15 Vancomycin HCl 1.75 gm/Sodium Chloride 500 ml @ 250 mls/hr 1X ONCE IV Last administered on 07/03/16 15:54; Start 07/03/16 at 14:00; Stop 07/03/16 at 15:59 ; Status DC Piperacillin Sod/ Tazobactam Sod/ Sodium Chloride (Zosyn/Iv Sodium Chloride 0.9 % 100ml) 100 ml @ 200 mls/hr Q6HRS IV Last administered on 07/08/16 13:12; Start 07/03/16 at 13:30 Budesonide (Pulmicort) 0.5 mg RTBID NEB Last administered on 07/08/16 07:36; Start 07/03/16 at 20:00 Pantoprazole Sodium (Protonix) 40 mg DAILYAC PO Last administered on 07/08/16 08:04; Start 07/03/16 at 14:30 Enoxaparin Sodium 40 mg 40 mg Q24H SQ Last administered on 07/03/16 15:53; Start 07/03/16 at 15:00; Stop 07/04/16 at 09:59; Status DC Vancomycin HCl/ Sodium Chloride (Iv Sodium Chloride 0.9% 250ml) 250 ml @ 250 mls/hr Q24H IV Last administered on 07/04/16 16:52; Start 07/04/16 at 16:00; Stop 07/05/16 at 15:56; Status DC Vancomycin HCl 1 each 1X ONCE MC Last administered on 07/05/16 15:30; Start 07/05/16 at 15:30; Stop 07/05/16 at 15:31; Status DC Promethazine HCl/ Codeine (Phenergan With Codeine) 5 ml PRN Q4HRS PRN PO COUGH Last administered on 07/08/16 06:02; Start 07/03/16 at 23:45 Amiodarone HCl (Cordarone) 200 mg DAILY07 PO Last administered on 07/08/16 06: 02; Start 07/04/16 at 09:30 Aspirin (Children'S Aspirin) 81 mg DAILYWBKFT PO Last administered on 08:04; Start 07/04/16 at 09:30 Clopidogrel Bisulfate (Plavix) 75 mg DAILYWBKFT PO Last administered on 08:01; Start 07/04/16 at 09:30 Furosemide (Lasix) 20 mg DAILY PO Last administered on 07/04/16 09:54; Start 07/04/16 at 09:30; Stop 07/04/16 at 14:08; Status DC Hydroxychloroquine Sulfate (Plaquenil) 200 mg BID PO Last administered on 08:04; Start 07/04/16 at 09:30 Albuterol/ Ipratropium (Duoneb) 3 ml RTQID NEB Last administered on 07/08/16 11:50; Start 07/04/16 at 12:00 Isosorbide Mononitrate (Imdur) 30 mg DAILY PO Last administered on 07/08/16 08 :02; Start 07/04/16 at 09:30 Metoprolol Tartrate (Lopressor) 12.5 mg BID PO Last administered on 07/08/16 08:03; Start 07/04/16 at 09:30 Potassium Chloride (Klor-Con) 20 meq DAILYWBKFT PO Last administered on 08:41; Start 07/04/16 at 09:30; Stop 07/07/16 at 08:26; Status DC Non-Formulary Medication 1 puff BID IH ; Start 07/04/16 at 09:00; Status UNV Atorvastatin Calcium (Lipitor) 10 mg QHS PO Last administered on 07/07/16 20: 21; Start 07/04/16 at 21:00 Ropinirole HCl (Requip) 0.5 mg DAILY PO ; Start 07/04/16 at 09:30; Stop at 09:30; Status DC Non-Formulary Medication 1 tab QHS PO ; Start 07/04/16 at 21:00; Status UNV Pantoprazole Sodium (Protonix) 40 mg DAILYAC PO ; Start 07/04/16 at 09:30; Status UNV Montelukast Sodium (Singulair) 10 mg QHS PO Last administered on 07/07/16 20: 20; Start 07/04/16 at 21:00 Enoxaparin Sodium (Lovenox 40mg Syringe) 40 mg Q24H SQ ; Start 07/04/16 at 09:15 ; Status UNV Ropinirole HCl (Requip) 0.5 mg BID PO Last administered on 07/08/16 08:03; Start 07/04/16 at 09:30 Furosemide 40 mg 40 mg DAILY IVP Last administered on 07/06/16 09:07; Start at 09:00; Stop 07/07/16 at 08:26; Status DC Vancomycin HCl/ Sodium Chloride (Iv Sodium Chloride 0.9% 250ml) 250 ml @ 250 mls/hr Q12H IV Last administered on 07/07/16 04:25; Start 07/05/16 at 16:00; Stop 07/07/16 at 05:27; Status DC Vancomycin HCl 1 each 1 each 1X ONCE MC ; Start 07/07/16 at 03:30; Stop at 03:31; Status DC Vancomycin HCl/ Sodium Chloride (Iv Sodium Chloride 0.9% 250ml) 250 ml @ 167 mls/hr Q12H IV Last administered on 07/08/16 07:58; Start 07/07/16 at 16:00; Stop 07/08/16 at 09:52; Status DC Vancomycin HCl 1 each 1X ONCE MC ; Start 07/08/16 at 19:30; Stop 07/08/16 at 19 :31; Status Cancel Potassium Chloride (Klor-Con) 20 meq TIDWMEALS PO Last administered on 13:12; Start 07/07/16 at 09:00 Furosemide (Lasix) 40 mg DAILY PO Last administered on 07/08/16 08:04; Start 07/07/16 at 09:00; Stop 07/08/16 at 09:06; Status DC Guaifenesin (MUCINEX ER with DM) 1 tab BID PO Last administered on 07/08/16 08 :15; Start 07/07/16 at 09:00 Furosemide (Lasix) 20 mg DAILY PO ; Start 07/09/16 at 09:00 Active Scripts Active Isosorbide Mononitrate Er (Isosorbide Mononitrate) 30 Mg Tab.er.24h 1 Tab PO DAILY Duoneb 0.5-3(2.5) Mg/3 Ml (Albuterol/Ipratropium) 3 Ml Ampul.neb 3 Ml NEB QID Plavix (Clopidogrel Bisulfate) 75 Mg Tablet 75 Mg PO DAILYWBKFT Reported Requip (Ropinirole Hcl) 0.5 Mg Tablet 0.5 Mg PO DAILY Prednisone 20 Mg Tablet 1 Tab PO DAILY Advair 250-50 Diskus (Fluticasone/Salmeterol) 1 Each Disk.w.dev 1 Puff IH BID Requip (Ropinirole Hcl) 0.5 Mg Tablet 1 Tab PO QHS Pravastatin Sodium 40 Mg Tablet 1 Tab PO DAILY Potassium Chloride 20 Meq Tab.er.prt 1 Tab PO DAILY Lasix (Furosemide) 40 Mg Tablet 20 Mg PO DAILY Pacerone (Amiodarone Hcl) 200 Mg Tablet 200 Mg PO DAILY07 Metoprolol Tartrate 25 Mg Tablet 12.5 Tab PO BID Nexium 24Hr (Esomeprazole Magnesium) 20 Mg Capsule.dr 40 Mg PO Aspirin 81 Mg Tab.chew 1 Tab PO DAILY Plaquenil (Hydroxychloroquine Sulfate) 200 Mg Tablet 200 Mg PO BID Vitals/I & O Vital Sign - Last 24 Hours 07/07/16 07/07/16 07/07/16 07/07/16 14:52 15:45 20:00 20:12 Temp 98.1 98.1 Pulse 63 Resp 18 B/P 108/38 Pulse Ox 92 97 O2 Delivery Nasal Cannula Nasal Cannula Nasal Cannula Nasal Cannula O2 Flow Rate 3.5 3.5 4.0 3.5 107/07/16 07/07/16 07/08/16 20:28 20:29 23:13 06:02 Temp 98.1 97.7 98.1 97.7 Pulse 67 67 70 66 Resp 16 16 B/P 122/54 122/54 119/55 136/60 Pulse Ox 98 91 O2 Delivery Nasal Cannula Nasal Cannula O2 Flow Rate 5.0 07/08/16 07/08/16 07/08/16 07/08/16 06:22 07:38 07:45 08:02 Temp 97.5 97.5 Pulse 66 66 Resp 18 B/P 136/60 136/60 Pulse Ox 93 98 98 O2 Delivery Nasal Cannula Nasal Cannula Nasal Cannula O2 Flow Rate 3.5 3.5 3.5 07/08/16 07/08/16 07/08/16 07/08/16 08:03 08:07 11:00 11:51 Temp 97.9 97.9 Pulse 66 62 Resp 18 B/P 136/60 118/46 Pulse Ox 94 98 O2 Delivery Nasal Cannula Nasal Cannula Nasal Cannula O2 Flow Rate 3.5 3.0 3.5 Intake and Output 07/07/16 07/07/16 07/08/16 15:00 23:00 07:00 Intake Total 118 ml 250 ml 0 ml Output Total 350 ml 500 ml Balance -232 ml -250 ml 0 ml IRMA PARDO MD Jul 08, 2016 13:52
[2016-07-08 15:00] VITALS: BP 125/53
[2016-07-08 19:21] VITALS: BP 147/75
[2016-07-08] MEDS: ATORVASTATIN CALCIUM 10 MG TABLET. PO SCH (19:52)
[2016-07-08] MEDS: MONTELUKAST SODIUM 10 MG TABLET. PO SCH (19:52)
[2016-07-08 23:46] VITALS: BP 106/50
[2016-07-09 02:46] VITALS: BP 119/58
[2016-07-09] MEDS: PIPERACILLIN/TAZOBACTAM 4.5 GM in IV NORMAL SALINE 100ML 100 ML IV SCH (05:45)
[2016-07-09 07:00] VITALS: BP 130/43
[2016-07-09] MEDS: IPRATRPIUM/ALBUTEROL 0.5/2.5MG 3 ML NEBU. NEB SCH ×2 (07:06→11:50)
[2016-07-09] MEDS: BUDESONIDE 0.5 MG/2 ML NEBU NEB SCH (07:07)
[2016-07-09] MEDS: METOPROLOL TART IMMED RELEASE 25 MG TABLET PO SCH (08:52)
[2016-07-09] MEDS: CLOPIDOGREL BISULFATE 75 MG TABLET PO SCH (08:52)
[2016-07-09] MEDS: ASPIRIN 81 MG TAB.CHEW PO SCH (08:52)
[2016-07-09] MEDS: rOPINIRole 0.25 MG TABLET. PO SCH (08:52)
[2016-07-09] MEDS: PANTOPRAZOLE 40 MG TABLET. PO SCH (08:53)
[2016-07-09] MEDS: GUAIFENESIN DM 600/30MG TAB.ER.12H. PO SCH (08:53)
[2016-07-09] MEDS: HYDROXYCHLOROQUINE 200 MG TABLET PO SCH (08:53)
[2016-07-09] MEDS: AMIODARONE HCL 200 MG TABLET PO SCH (08:53)
[2016-07-09] MEDS: POTASSIUM CHLORIDE 20 MEQ TABLET.ER. PO SCH ×2 (08:54→11:54)
[2016-07-09] MEDS: ISOSORBIDE MONONITRATE ER 30 MG TAB.ER.24H PO SCH (08:54)
[2016-07-09 09:00] VITALS: BP 138/58
[2016-07-09] MEDS ORDERED: AMOXICILLIN/K CLAV 875/125MG TABLET. PO SCH (09:00)
[2016-07-09] MEDS ORDERED: FUROSEMIDE 20 MG TABLET PO SCH (09:00)
--- NOTE | 2016-07-09 09:25 | PDOC ---
PROGRESS NOTES Subjective Subjective Patient without complaint, feels ready to go home. Objective Objective Vital Signs Date Time Temp Pulse Resp B/P Pulse Ox O2 Delivery O2 Flow Rate FiO2 07/09/16 08:54 63 07/09/16 08:53 130/43 07/09/16 08:00 Nasal Cannula 3.5 07/09/16 07:05 86 07/09/16 07:00 98.1 22 98.1 Intake and Output 07/09/16 07:00 Intake Total 600 ml Balance 600 ml Intake Oral 600 ml # Voids 3 Physical Exam Abdomen: Normal bowel sounds, Soft, No tenderness Heart: Regular rate Extremities: No edema General: Alert, Oriented X3, No acute distress Lungs: Other (BS decreased throughout, few crackles left mid-lung, otherwise CTA) Assessment Assessment Problems Medical Problems: (1) Acute and chronic respiratory failure with hypoxia Status: Acute (2) COPD exacerbation Status: Acute (3) Healthcare-associated pneumonia Status: Acute (4) Hypoxia Status: Acute Plan Plan of Care 1. Acute on chronic respiratory failure with pneumonia and COPD - improved, home today on po Augmentin. 6 minute walk ordered, patient will need portable O2 to wear continuously. 2. CHF with mild diastolic dysfunction - stable, continue her usual Lasix and K+ . 3. HTN - well controlled with present meds. Comment Review of Relevant I have reviewed the following items nam (where applicable) has been applied. Labs Laboratory Tests Test 07/08/16 02:50 Sodium Level 145mmol/L (136-145) Potassium Level 3.1mmol/L (3.5-5.1) Chloride Level 107mmol/L (98-107) Carbon Dioxide Level 30mmol/L (21-32) Anion Gap 8 (6-14) Blood Urea Nitrogen 13mg/dL (7-20) Creatinine 1.0mg/dL (0.6-1.0) Estimated GFR (Cockcroft-Gault) 53.5 Glucose Level 94mg/dL (70-99) Calcium Level 8.1mg/dL (8.5-10.1) Medications Current Medications Albuterol/ Ipratropium (Duoneb) 3 ml STK-MED ONCE .ROUTE ; Start 07/03/16 at 12: 05; Stop 07/03/16 at 12:06; Status DC Albuterol/ Ipratropium (Duoneb) 3 ml 1X ONCE NEB ; Start 07/03/16 at 12:15; Stop 07/03/16 at 12:16; Status DC Prednisone (Prednisone) 50 mg 1X ONCE PO Last administered on 07/03/16 12:45 ; Start 07/03/16 at 12:15; Stop 07/03/16 at 12:16; Status DC Ondansetron HCl (Zofran) 4 mg PRN Q8HRS PRN IV NAUSEA/VOMITING; Start 07/03/16 at 12:45; Stop 07/04/16 at 12:44; Status DC Albuterol/ Ipratropium (Duoneb) 3 ml RTQID NEB Last administered on 07/04/16 11:38; Start 07/03/16 at 16:00; Stop 07/04/16 at 13:28; Status DC Vancomycin HCl (Vanco Per Pharmacy) 1 each PRN DAILY PRN MC SEE COMMENTS Last administered on 07/07/16 05:32; Start 07/03/16 at 13:15; Stop 07/08/16 at 09:53 ; Status DC Piperacillin Sod/ Tazobactam Sod 1 each 1 each PRN DAILY PRN MC SEE COMMENTS; Start 07/03/16 at 13:15; Stop 07/09/16 at 10:00 Vancomycin HCl 1.75 gm/Sodium Chloride 500 ml @ 250 mls/hr 1X ONCE IV Last administered on 07/03/16 15:54; Start 07/03/16 at 14:00; Stop 07/03/16 at 15:59 ; Status DC Piperacillin Sod/ Tazobactam Sod/ Sodium Chloride (Zosyn/Iv Sodium Chloride 0.9 % 100ml) 100 ml @ 200 mls/hr Q6HRS IV Last administered on 07/08/16 23:29; Start 07/03/16 at 13:30; Stop 07/09/16 at 11:00 Budesonide (Pulmicort) 0.5 mg RTBID NEB Last administered on 07/09/16 07:07; Start 07/03/16 at 20:00 Pantoprazole Sodium (Protonix) 40 mg DAILYAC PO Last administered on 07/09/16 08:53; Start 07/03/16 at 14:30 Enoxaparin Sodium 40 mg 40 mg Q24H SQ Last administered on 07/03/16 15:53; Start 07/03/16 at 15:00; Stop 07/04/16 at 09:59; Status DC Vancomycin HCl/ Sodium Chloride (Iv Sodium Chloride 0.9% 250ml) 250 ml @ 250 mls/hr Q24H IV Last administered on 07/04/16 16:52; Start 07/04/16 at 16:00; Stop 07/05/16 at 15:56; Status DC Vancomycin HCl 1 each 1X ONCE MC Last administered on 07/05/16 15:30; Start 07/05/16 at 15:30; Stop 07/05/16 at 15:31; Status DC Promethazine HCl/ Codeine (Phenergan With Codeine) 5 ml PRN Q4HRS PRN PO COUGH Last administered on 07/08/16 23:29; Start 07/03/16 at 23:45 Amiodarone HCl (Cordarone) 200 mg DAILY07 PO Last administered on 07/09/16 08: 53; Start 07/04/16 at 09:30 Aspirin (Children'S Aspirin) 81 mg DAILYWBKFT PO Last administered on 08:52; Start 07/04/16 at 09:30 Clopidogrel Bisulfate (Plavix) 75 mg DAILYWBKFT PO Last administered on 08:52; Start 07/04/16 at 09:30 Furosemide (Lasix) 20 mg DAILY PO Last administered on 07/04/16 09:54; Start 07/04/16 at 09:30; Stop 07/04/16 at 14:08; Status DC Hydroxychloroquine Sulfate (Plaquenil) 200 mg BID PO Last administered on 08:53; Start 07/04/16 at 09:30 Albuterol/ Ipratropium (Duoneb) 3 ml RTQID NEB Last administered on 07/09/16 07:06; Start 07/04/16 at 12:00 Isosorbide Mononitrate (Imdur) 30 mg DAILY PO Last administered on 07/09/16 08 :54; Start 07/04/16 at 09:30 Metoprolol Tartrate (Lopressor) 12.5 mg BID PO Last administered on 07/09/16 08:52; Start 07/04/16 at 09:30 Potassium Chloride (Klor-Con) 20 meq DAILYWBKFT PO Last administered on 08:41; Start 07/04/16 at 09:30; Stop 07/07/16 at 08:26; Status DC Non-Formulary Medication 1 puff BID IH ; Start 07/04/16 at 09:00; Status UNV Atorvastatin Calcium (Lipitor) 10 mg QHS PO Last administered on 07/08/16 19: 52; Start 07/04/16 at 21:00 Ropinirole HCl (Requip) 0.5 mg DAILY PO ; Start 07/04/16 at 09:30; Stop at 09:30; Status DC Non-Formulary Medication 1 tab QHS PO ; Start 07/04/16 at 21:00; Status UNV Pantoprazole Sodium (Protonix) 40 mg DAILYAC PO ; Start 07/04/16 at 09:30; Status UNV Montelukast Sodium (Singulair) 10 mg QHS PO Last administered on 07/08/16 19: 52; Start 07/04/16 at 21:00 Enoxaparin Sodium (Lovenox 40mg Syringe) 40 mg Q24H SQ ; Start 07/04/16 at 09:15 ; Status UNV Ropinirole HCl (Requip) 0.5 mg BID PO Last administered on 07/09/16 08:52; Start 07/04/16 at 09:30 Furosemide 40 mg 40 mg DAILY IVP Last administered on 07/06/16 09:07; Start at 09:00; Stop 07/07/16 at 08:26; Status DC Vancomycin HCl/ Sodium Chloride (Iv Sodium Chloride 0.9% 250ml) 250 ml @ 250 mls/hr Q12H IV Last administered on 07/07/16 04:25; Start 07/05/16 at 16:00; Stop 07/07/16 at 05:27; Status DC Vancomycin HCl 1 each 1 each 1X ONCE MC ; Start 07/07/16 at 03:30; Stop at 03:31; Status DC Vancomycin HCl/ Sodium Chloride (Iv Sodium Chloride 0.9% 250ml) 250 ml @ 167 mls/hr Q12H IV Last administered on 07/08/16 07:58; Start 07/07/16 at 16:00; Stop 07/08/16 at 09:52; Status DC Vancomycin HCl 1 each 1X ONCE MC ; Start 07/08/16 at 19:30; Stop 07/08/16 at 19 :31; Status Cancel Potassium Chloride (Klor-Con) 20 meq TIDWMEALS PO Last administered on 08:54; Start 07/07/16 at 09:00 Furosemide (Lasix) 40 mg DAILY PO Last administered on 07/08/16 08:04; Start 07/07/16 at 09:00; Stop 07/08/16 at 09:06; Status DC Guaifenesin (MUCINEX ER with DM) 1 tab BID PO Last administered on 07/09/16 08 :53; Start 07/07/16 at 09:00 Furosemide (Lasix) 20 mg DAILY PO Last administered on 07/09/16 08:53; Start 07/09/16 at 09:00 Amoxicillin/ Clavulanate Potassium (Augmentin 875/ 125mg) 1 tab BID PO Last administered on 07/09/16 08:53; Start 07/09/16 at 09:00 Active Scripts Active Isosorbide Mononitrate Er (Isosorbide Mononitrate) 30 Mg Tab.er.24h 1 Tab PO DAILY Duoneb 0.5-3(2.5) Mg/3 Ml (Albuterol/Ipratropium) 3 Ml Ampul.neb 3 Ml NEB QID Plavix (Clopidogrel Bisulfate) 75 Mg Tablet 75 Mg PO DAILYWBKFT Reported Requip (Ropinirole Hcl) 0.5 Mg Tablet 0.5 Mg PO DAILY Prednisone 20 Mg Tablet 1 Tab PO DAILY Advair 250-50 Diskus (Fluticasone/Salmeterol) 1 Each Disk.w.dev 1 Puff IH BID Requip (Ropinirole Hcl) 0.5 Mg Tablet 1 Tab PO QHS Pravastatin Sodium 40 Mg Tablet 1 Tab PO DAILY Potassium Chloride 20 Meq Tab.er.prt 1 Tab PO DAILY Lasix (Furosemide) 40 Mg Tablet 20 Mg PO DAILY Pacerone (Amiodarone Hcl) 200 Mg Tablet 200 Mg PO DAILY07 Metoprolol Tartrate 25 Mg Tablet 12.5 Tab PO BID Nexium 24Hr (Esomeprazole Magnesium) 20 Mg Capsule.dr 40 Mg PO Aspirin 81 Mg Tab.chew 1 Tab PO DAILY Plaquenil (Hydroxychloroquine Sulfate) 200 Mg Tablet 200 Mg PO BID Vitals/I & O Vital Sign - Last 24 Hours 07/08/16 07/08/16 07/08/16 07/08/16 11:00 11:51 15:00 15:42 Temp 97.9 97.7 97.9 97.7 Pulse 62 61 Resp 18 20 B/P 118/46 125/53 Pulse Ox 94 98 95 O2 Delivery Nasal Cannula Nasal Cannula Nasal Cannula Nasal Cannula O2 Flow Rate 3.0 3.5 3.0 3.5 07/08/16 07/08/16 07/08/16 07/08/16 19:06 19:07 19:21 19:52 Temp 97.5 97.5 Pulse 83 61 Resp 20 B/P 147/75 125/53 Pulse Ox 98 98 98 O2 Delivery Nasal Cannula Nasal Cannula Nasal Cannula O2 Flow Rate 3.5 3.5 3.0 07/08/16 07/08/16 07/09/16 07/09/16 20:00 23:46 02:46 07:00 Temp 98.2 97.5 98.1 98.2 97.5 98.1 Pulse 68 64 68 Resp 18 18 22 B/P 106/50 119/58 130/43 Pulse Ox 97 96 97 O2 Delivery Nasal Cannula Nasal Cannula Nasal Cannula Nasal Cannula O2 Flow Rate 3.5 3.0 3.0 3.0 07/09/16 07/09/16 07/09/16 07/09/16 07:05 07:12 08:00 08:52 Pulse 68 B/P 130/43 Pulse Ox 86 O2 Delivery Nasal Cannula Nasal Cannula Nasal Cannula O2 Flow Rate 3.5 3.5 3.5 07/09/16 07/09/16 08:53 08:54 Pulse 68 63 B/P 130/43 Intake and Output 07/08/16 07/08/16 07/09/16 15:00 23:00 07:00 Intake Total 600 ml 0 ml Balance 600 ml 0 ml MILADIS CESPEDES MD Jul 09, 2016 09:25
[2016-07-09] MEDS ORDERED: AMOX1TAB11 PO (09:28)
[2016-07-09] MEDS ORDERED: GUAI-42 PO (09:28)
[2016-07-09] MEDS ORDERED: Promethazine Hcl/Codeine PO (09:28)
[2016-07-09 11:34] VITALS: BP 132/49
--- NOTE | 2016-07-09 11:48 | PDOC ---
PULMONARY PROGRESS NOTES Subjective mild cough, better no sputum, Vitals Vital Signs Date Time Temp Pulse Resp B/P Pulse Ox O2 Delivery O2 Flow Rate FiO2 07/09/16 11:34 98.1 70 24 132/49 94 Nasal Cannula 3.0 98.1 Comments ros as above, other sys otherwise neg General: Alert, No acute distress HEENT: Other (nc at perrl) Lungs: Other (decrease bs) Cardiovascular: S1, S2 Abdomen: Soft, Non-tender, Other (no mass) Neuro Exam: Alert Extremities: No Edema Skin: Warm Labs Laboratory Tests Test 07/08/16 02:50 Sodium Level 145mmol/L (136-145) Potassium Level 3.1mmol/L (3.5-5.1) Chloride Level 107mmol/L (98-107) Carbon Dioxide Level 30mmol/L (21-32) Anion Gap 8 (6-14) Blood Urea Nitrogen 13mg/dL (7-20) Creatinine 1.0mg/dL (0.6-1.0) Estimated GFR (Cockcroft-Gault) 53.5 Glucose Level 94mg/dL (70-99) Calcium Level 8.1mg/dL (8.5-10.1) Medications Active Scripts Medications Dose Route/Sig Days Date Category Prednisone 20 Mg Tablet 1 Tab PO DAILY 9 06/30/16 Rx Advair 250-50 Diskus (Fluticasone/Salmeterol) 1 Each Disk.w.dev 1 Puff IH BID 06/26/16 Reported Requip (Ropinirole Hcl) 0.5 Mg Tablet 1 Tab PO QHS 06/26/16 Reported Albuterol Sulfate Neb Soln (Albuterol Sulfate) 1.25 Mg/3 Ml Vial.neb 1 Vial NEB Q4HRS 05/11/16 Rx Isosorbide Mononitrate Er (Isosorbide Mononitrate) 30 Mg Tab.er.24h 1 Tab PO DAILY 05/08/16 Rx Duoneb 0.5-3(2.5) Mg/3 Ml (Albuterol/Ipratropium) 3 Ml Ampul.neb 3 Ml NEB QID 05/08/16 Rx Pravastatin Sodium 40 Mg Tablet 1 Tab PO DAILY 05/07/16 Reported Potassium Chloride 20 Meq Tab.er.prt 1 Tab PO DAILY 08/20/14 Reported Lasix (Furosemide) 40 Mg Tablet 20 Mg PO DAILY 08/20/14 Reported Pacerone (Amiodarone Hcl) 200 Mg Tablet 200 Mg PO DAILY07 08/16/14 Reported Metoprolol Tartrate 25 Mg Tablet 12.5 Tab PO BID 05/21/14 Reported Hydrocodone-Apap 5-325 (Hydrocodone Bit/Acetaminophen) 1 Each Tablet 1 Tab PO PRN Q4HRS PRN 05/21/14 Reported Plavix (Clopidogrel Bisulfate) 75 Mg Tablet 75 Mg PO DAILYWBKFT 04/19/14 Rx Nexium 24Hr (Esomeprazole Magnesium) 20 Mg Capsule.dr 40 Mg PO 04/16/14 Reported Plaquenil (Hydroxychloroquine Sulfate) 200 Mg Tablet 200 Mg PO BID 04/16/14 Reported Comments cxr reviewed, l infilt Impression . 1. Acute on chronic hypoxemic respiratory failure, multifactorial in etiology. 2. Abnormal chest x-ray. 3. Pneumonia. 4. Acute exacerbation of chronic obstructive pulmonary disease. 5. Acute diastolic congestive heart failure. 6. Leukocytosis. 7. Gastroesophageal reflux disease. 8. Coronary artery disease. 9. allergic rhinitis Plan . 1. Titrate FiO2 to keep O2 saturation 92%. 2. off vancomycin change Zosyn to PO augmentin 3. Repeat cxr with improving left lung infiltrate. Hold ct chest for now. (Pt on amiodarone) 4. Bronchodilator. 5. Inhaled corticosteroid. 6. Lovenox for DVT prophylaxis. 7. Stress ulcer prophylaxis. 8. Influenza A and B neg . 9. ok with d/c home today ELIO ADAM MD Jul 09, 2016 11:48
--- NOTE | 2016-07-09 15:29 | PDOC ---
PROGRESS NOTES Subjective Subjective Patient is feeling well today and offers no cardiac complaints. Objective Objective Vital Signs Date Time Temp Pulse Resp B/P Pulse Ox O2 Delivery O2 Flow Rate FiO2 07/09/16 11:50 Nasal Cannula 3.5 07/09/16 11:34 98.1 70 24 132/49 94 98.1 Intake and Output 07/09/16 07:00 Intake Total 600 ml Balance 600 ml Intake Oral 600 ml # Voids 3 Physical Exam Physical Exam No change in cardiac exam. Assessment Assessment Problems Medical Problems: (1) Acute and chronic respiratory failure with hypoxia Status: Acute (2) COPD exacerbation Status: Acute (3) Healthcare-associated pneumonia Status: Acute (4) Hypoxia Status: Acute Plan Plan of Care Patient is stable from a cardiac standpoint. I agree with the current plan of care and plan to discharge home today. Comment Review of Relevant I have reviewed the following items nam (where applicable) has been applied. Labs Laboratory Tests Test 07/08/16 02:50 Sodium Level 145mmol/L (136-145) Potassium Level 3.1mmol/L (3.5-5.1) Chloride Level 107mmol/L (98-107) Carbon Dioxide Level 30mmol/L (21-32) Anion Gap 8 (6-14) Blood Urea Nitrogen 13mg/dL (7-20) Creatinine 1.0mg/dL (0.6-1.0) Estimated GFR (Cockcroft-Gault) 53.5 Glucose Level 94mg/dL (70-99) Calcium Level 8.1mg/dL (8.5-10.1) Medications Current Medications Albuterol/ Ipratropium (Duoneb) 3 ml STK-MED ONCE .ROUTE ; Start 07/03/16 at 12: 05; Stop 07/03/16 at 12:06; Status DC Albuterol/ Ipratropium (Duoneb) 3 ml 1X ONCE NEB ; Start 07/03/16 at 12:15; Stop 07/03/16 at 12:16; Status DC Prednisone (Prednisone) 50 mg 1X ONCE PO Last administered on 07/03/16t 12:45 ; Start 07/03/16 at 12:15; Stop 07/03/16 at 12:16; Status DC Ondansetron HCl (Zofran) 4 mg PRN Q8HRS PRN IV NAUSEA/VOMITING; Start 07/03/16 at 12:45; Stop 07/04/16 at 12:44; Status DC Albuterol/ Ipratropium (Duoneb) 3 ml RTQID NEB Last administered on 07/04/16 11:38; Start 07/03/16 at 16:00; Stop 07/04/16 at 13:28; Status DC Vancomycin HCl (Vanco Per Pharmacy) 1 each PRN DAILY PRN MC SEE COMMENTS Last administered on 07/07/16 05:32; Start 07/03/16 at 13:15; Stop 07/08/16 at 09:53 ; Status DC Piperacillin Sod/ Tazobactam Sod 1 each 1 each PRN DAILY PRN MC SEE COMMENTS; Start 07/03/16 at 13:15; Stop 07/09/16 at 10:00; Status DC Vancomycin HCl 1.75 gm/Sodium Chloride 500 ml @ 250 mls/hr 1X ONCE IV Last administered on 07/03/16 15:54; Start 07/03/16 at 14:00; Stop 07/03/16 at 15:59 ; Status DC Piperacillin Sod/ Tazobactam Sod/ Sodium Chloride (Zosyn/Iv Sodium Chloride 0.9 % 100ml) 100 ml @ 200 mls/hr Q6HRS IV Last administered on 07/08/16 23:29; Start 07/03/16 at 13:30; Stop 07/09/16 at 11:00; Status DC Budesonide (Pulmicort) 0.5 mg RTBID NEB Last administered on 07/09/16 07:07; Start 07/03/16 at 20:00 Pantoprazole Sodium (Protonix) 40 mg DAILYAC PO Last administered on 07/09/16 08:53; Start 07/03/16 at 14:30 Enoxaparin Sodium 40 mg 40 mg Q24H SQ Last administered on 07/03/16 15:53; Start 07/03/16 at 15:00; Stop 07/04/16 at 09:59; Status DC Vancomycin HCl/ Sodium Chloride (Iv Sodium Chloride 0.9% 250ml) 250 ml @ 250 mls/hr Q24H IV Last administered on 07/04/16 16:52; Start 07/04/16 at 16:00; Stop 07/05/16 at 15:56; Status DC Vancomycin HCl 1 each 1X ONCE MC Last administered on 07/05/16 15:30; Start 07/05/16 at 15:30; Stop 07/05/16 at 15:31; Status DC Promethazine HCl/ Codeine (Phenergan With Codeine) 5 ml PRN Q4HRS PRN PO COUGH Last administered on 07/08/16 23:29; Start 07/03/16 at 23:45 Amiodarone HCl (Cordarone) 200 mg DAILY07 PO Last administered on 07/09/16 08: 53; Start 07/04/16 at 09:30 Aspirin (Children'S Aspirin) 81 mg DAILYWBKFT PO Last administered on 08:52; Start 07/04/16 at 09:30 Clopidogrel Bisulfate (Plavix) 75 mg DAILYWBKFT PO Last administered on 08:52; Start 07/04/16 at 09:30 Furosemide (Lasix) 20 mg DAILY PO Last administered on 07/04/16 09:54; Start 07/04/16 at 09:30; Stop 07/04/16 at 14:08; Status DC Hydroxychloroquine Sulfate (Plaquenil) 200 mg BID PO Last administered on 08:53; Start 07/04/16 at 09:30 Albuterol/ Ipratropium (Duoneb) 3 ml RTQID NEB Last administered on 07/09/16 11:50; Start 07/04/16 at 12:00 Isosorbide Mononitrate (Imdur) 30 mg DAILY PO Last administered on 07/09/16 08 :54; Start 07/04/16 at 09:30 Metoprolol Tartrate (Lopressor) 12.5 mg BID PO Last administered on 07/09/16 08:52; Start 07/04/16 at 09:30 Potassium Chloride (Klor-Con) 20 meq DAILYWBKFT PO Last administered on 08:41; Start 07/04/16 at 09:30; Stop 07/07/16 at 08:26; Status DC Non-Formulary Medication 1 puff BID IH ; Start 07/04/16 at 09:00; Status UNV Atorvastatin Calcium (Lipitor) 10 mg QHS PO Last administered on 07/08/16 19: 52; Start 07/04/16 at 21:00 Ropinirole HCl (Requip) 0.5 mg DAILY PO ; Start 07/04/16 at 09:30; Stop at 09:30; Status DC Non-Formulary Medication 1 tab QHS PO ; Start 07/04/16 at 21:00; Status UNV Pantoprazole Sodium (Protonix) 40 mg DAILYAC PO ; Start 07/04/16 at 09:30; Status UNV Montelukast Sodium (Singulair) 10 mg QHS PO Last administered on 07/08/16 19: 52; Start 07/04/16 at 21:00 Enoxaparin Sodium (Lovenox 40mg Syringe) 40 mg Q24H SQ ; Start 07/04/16 at 09:15 ; Status UNV Ropinirole HCl (Requip) 0.5 mg BID PO Last administered on 07/09/16 08:52; Start 07/04/16 at 09:30 Furosemide 40 mg 40 mg DAILY IVP Last administered on 07/06/16 09:07; Start at 09:00; Stop 07/07/16 at 08:26; Status DC Vancomycin HCl/ Sodium Chloride (Iv Sodium Chloride 0.9% 250ml) 250 ml @ 250 mls/hr Q12H IV Last administered on 07/07/16 04:25; Start 07/05/16 at 16:00; Stop 07/07/16 at 05:27; Status DC Vancomycin HCl 1 each 1 each 1X ONCE MC ; Start 07/07/16 at 03:30; Stop at 03:31; Status DC Vancomycin HCl/ Sodium Chloride (Iv Sodium Chloride 0.9% 250ml) 250 ml @ 167 mls/hr Q12H IV Last administered on 07/08/16 07:58; Start 07/07/16 at 16:00; Stop 07/08/16 at 09:52; Status DC Vancomycin HCl 1 each 1X ONCE MC ; Start 07/08/16 at 19:30; Stop 07/08/16 at 19 :31; Status Cancel Potassium Chloride (Klor-Con) 20 meq TIDWMEALS PO Last administered on 11:54; Start 07/07/16 at 09:00 Furosemide (Lasix) 40 mg DAILY PO Last administered on 07/08/16 08:04; Start 07/07/16 at 09:00; Stop 07/08/16 at 09:06; Status DC Guaifenesin (MUCINEX ER with DM) 1 tab BID PO Last administered on 07/09/16 08 :53; Start 07/07/16 at 09:00 Furosemide (Lasix) 20 mg DAILY PO Last administered on 07/09/16 08:53; Start 07/09/16 at 09:00 Amoxicillin/ Clavulanate Potassium (Augmentin 875/ 125mg) 1 tab BID PO Last administered on 07/09/16 08:53; Start 07/09/16 at 09:00 Active Scripts Active [Promethazine Hcl/Codeine] 5 ML Syrup 5 Ml PO PRN Q4HRS PRN 14 Days Mucinex Dm Er 600-30 Mg Tablet (Guaifenesin/Dextromethorphan) 1 Each Tab.er.12h 1 Tab PO BID 14 Days Amox Tr-K Clv 875-125 Mg Tab (Amoxicillin/Potassium Clav) 1 Each Tablet 1 Tab PO BID 5 Days Isosorbide Mononitrate Er (Isosorbide Mononitrate) 30 Mg Tab.er.24h 1 Tab PO DAILY Duoneb 0.5-3(2.5) Mg/3 Ml (Albuterol/Ipratropium) 3 Ml Ampul.neb 3 Ml NEB QID Plavix (Clopidogrel Bisulfate) 75 Mg Tablet 75 Mg PO DAILYWBKFT Reported Requip (Ropinirole Hcl) 0.5 Mg Tablet 0.5 Mg PO DAILY Advair 250-50 Diskus (Fluticasone/Salmeterol) 1 Each Disk.w.dev 1 Puff IH BID Requip (Ropinirole Hcl) 0.5 Mg Tablet 1 Tab PO QHS Pravastatin Sodium 40 Mg Tablet 1 Tab PO DAILY Potassium Chloride 20 Meq Tab.er.prt 1 Tab PO DAILY Lasix (Furosemide) 40 Mg Tablet 20 Mg PO DAILY Pacerone (Amiodarone Hcl) 200 Mg Tablet 200 Mg PO DAILY07 Metoprolol Tartrate 25 Mg Tablet 12.5 Tab PO BID Nexium 24Hr (Esomeprazole Magnesium) 20 Mg Capsule.dr 40 Mg PO Aspirin 81 Mg Tab.chew 1 Tab PO DAILY Plaquenil (Hydroxychloroquine Sulfate) 200 Mg Tablet 200 Mg PO BID Vitals/I & O Vital Sign - Last 24 Hours 07/08/16 07/08/16 07/08/16 07/08/16 15:42 19:06 19:07 19:21 Temp 97.5 97.5 Pulse 83 Resp 20 B/P 147/75 Pulse Ox 98 98 98 O2 Delivery Nasal Cannula Nasal Cannula Nasal Cannula Nasal Cannula O2 Flow Rate 3.5 3.5 3.5 3.0 07/08/16 07/08/16 07/08/16 07/09/16 19:52 20:00 23:46 02:46 Temp 98.2 97.5 98.2 97.5 Pulse 61 68 64 Resp 18 18 B/P 125/53 106/50 119/58 Pulse Ox 97 96 O2 Delivery Nasal Cannula Nasal Cannula Nasal Cannula O2 Flow Rate 3.5 3.0 3.0 07/09/16 07/09/16 07/09/16 07/09/16 07:00 07:05 07:12 08:00 Temp 98.1 98.1 Pulse 68 Resp 22 B/P 130/43 Pulse Ox 97 86 O2 Delivery Nasal Cannula Nasal Cannula Nasal Cannula Nasal Cannula O2 Flow Rate 3.0 3.5 3.5 3.5 07/09/16 07/09/16 07/09/16 07/09/16 08:52 08:53 08:54 09:00 Pulse 68 68 63 B/P 130/43 130/43 138/58 07/09/16 07/09/16 11:34 11:50 Temp 98.1 98.1 Pulse 70 Resp 24 B/P 132/49 Pulse Ox 94 O2 Delivery Nasal Cannula Nasal Cannula O2 Flow Rate 3.0 3.5 Intake and Output 07/08/16 07/08/16 07/09/16 15:00 23:00 07:00 Intake Total 600 ml 0 ml Balance 600 ml 0 ml IRMA PARDO MD Jul 09, 2016 15:29
--- NOTE | 2016-07-09 18:29 | DS ---
DATE OF DISCHARGE: 07/09/2016 CHIEF COMPLAINT: Cough and shortness of breath. HISTORY OF PRESENT ILLNESS: The patient is a 81-year-old female with a history of COPD who presented to the Emergency Room with the above complaint. She had recently been hospitalized for treatment of COPD exacerbation and congestive heart failure. She had been discharged to home, but began to have a worsening cough which was productive of discolored sputum. She felt more short of breath. Evaluation in the Emergency Room showed her to have a new infiltrate in the left lung consistent with pneumonia and she was admitted for further treatment. HOSPITAL COURSE: The patient was admitted and placed on telemetry where she remained in sinus rhythm. She was seen in consultation by Dr. Tolliver and Pulmonary Medicine. She was started on vancomycin and Zosyn for treatment of the healthcare-associated pneumonia. She initially required a high level of oxygen to maintain her oxygen saturation. This has gradually improved as has her cough. She was treated with inhaled steroids, but Pulmonology did not think she needed oral or IV steroids and these were not given. Dr. Tolliver felt that the patient's congestive heart failure was stable and she continued on Lasix daily for treatment of this. The patient's blood pressure was well controlled with her home medication. She has scleroderma and this has been stable for her with her usual medications. The patient feels much better and is ready for discharge today. She has been receiving physical and occupational therapy and is doing well with this. She previously had oxygen at home only to wear at night. She presently requires continuous oxygen with an increased flow during exertion. A 6-minute walk showed desaturation to 85% on RA in one minute of walking, sats improved with O2 at 3L per NC. She already has portable and stationary oxygen at home per , and a portable tank was provided for her use going home at discharge. The patient does not anticipate being homebound and is looking forward to being able to go out more with her oxygen; therefore home health is not indicated at this time. FINAL DIAGNOSES: 1. Acute on chronic respiratory failure. 2. Healthcare-associated pneumonia. 3. COPD, oxygen dependent. 4. Hypertension. 5. Mild systolic congestive heart failure. 6. History of coronary artery disease. 7. Scleroderma. DISCHARGE MEDICATIONS: Augmentin 875 one p.o. b.i.d. x 5 days, then discontinue, codeine cough syrup as needed, Mucinex DM b.i.d. p.r.n., amiodarone 200 mg daily, aspirin 81 mg daily, Plavix 75 mg daily, Nexium 40 mg daily, Advair 250/50 two puffs b.i.d., Lasix 20 mg daily, Plaquenil 200 mg b.i.d., DuoNeb p.r.n., Imdur 30 mg daily, metoprolol tartrate 25 mg one half tablet b.i.d., potassium 20 mEq daily, pravastatin 40 mg daily, Requip 0.5 mg at bedtime. DISCHARGE INSTRUCTIONS: Follow up with Dr. Boswell as needed. Follow up with Dr. Tolliver and Dr. Mancilla as advised. MILADIS BOSWELL MD DR: MARGARITA/isai JOB#: [id number] / [id number] NICOLAS
== END 2016-07-09 13:50 | disposition home or self-care (01) | DRG 291 ==
LOC: ER 11:21 → 6 SOUTH 12:36
PROVIDERS: ADMIT Family Medicine; ATTEND Family Medicine
DX: I50.43 Acute on chronic combined systolic (congestive) and diastolic (congestive) heart failure (principal); J18.1 Lobar pneumonia, unspecified organism; J96.21 Acute and chronic respiratory failure with hypoxia; J44.0 Chronic obstructive pulmonary disease with (acute) lower respiratory infection; J44.1 Chronic obstructive pulmonary disease with (acute) exacerbation; E78.00 Pure hypercholesterolemia, unspecified; E78.5 Hyperlipidemia, unspecified; I11.0 Hypertensive heart disease with heart failure; M34.9 Systemic sclerosis, unspecified; I25.10 Atherosclerotic heart disease of native coronary artery without angina pectoris; I25.5 Ischemic cardiomyopathy; J30.9 Allergic rhinitis, unspecified; K21.9 Gastro-esophageal reflux disease without esophagitis; Z87.891 Personal history of nicotine dependence; Z90.49 Acquired absence of other specified parts of digestive tract; Z95.1 Presence of aortocoronary bypass graft; Z88.6 Allergy status to analgesic agent; Z88.8 Allergy status to other drugs, medicaments and biological substances; Z95.5 Presence of coronary angioplasty implant and graft; Z99.81 Dependence on supplemental oxygen
CPT/HCPCS: 36415; 71010; 80048; 80076; 80202; 82805; 83690; 83880; 84484; 85007; 85027; 87449; 87804; 93005; 94250; 94620; 94640; 94760; J1650; J1940; J2543; J3370; J7040; J7050; J7512; J7620; 97003-GO; 97110; 97116; 97530; 97535; 99285-25; J7030

== ENCOUNTER → 2016-12-24 | Outpatient (CLI) | payer MEDICARE, OTHER ==
[~2016-12-24] MED LIST changes: +AMOX1TAB11 PO; +ASPI-630 PO; -ASPI81TA2 PO; -CLOP75TA27 PO; +CLOP75TA57 PO; +GUAI-107 PO; -HYDR-2666 PO; +HYDR-2758 PO; +Promethazine Hcl/Codeine PO
--- NOTE | 2016-12-24 08:57 | RAD ---
DATE: 12/24/2016 EXAM: DIGITAL SCREEN BILAT W/CAD HISTORY: Screening COMPARISON: One year earlier This study was interpreted with the benefit of Computerized Aided Detection (CAD). FINDINGS: Breast Density: SCATTERED The breast parenchyma shows scattered fibroglandular densities. Breast parenchyma level B. There has been little change compared to the previous exam IMPRESSION: Benign finding BI-RADS CATEGORY: 2 BENIGN FINDING(S) RECOMMENDED FOLLOW-UP: 12M 12 MONTH FOLLOW-UP PQRS compliance statement: Patient information was entered into a reminder system with a target due date 12/24/2017 for the next mammogram. Mammography is a sensitive method for finding small breast cancers, but it does not detect them all and is not a substitute for careful clinical examination. A negative mammogram does not negate a clinically suspicious finding and should not result in delay in biopsying a clinically suspicious abnormality. "Our facility is accredited by the [employer] Mammography Program."
== END | disposition home or self-care (01) ==
LOC: MAMMO 08:03
PROVIDERS: ATTEND Family Medicine
DX: Z12.31 Encounter for screening mammogram for malignant neoplasm of breast (principal)
CPT/HCPCS: G0202; 77067

== ENCOUNTER → 2017-05-27 | Outpatient (CLI) | payer MEDICARE, OTHER ==
[~2017-05-27] MED LIST changes: -GUAI-107 PO; +GUAI-108 PO; +PANT40TA5 PO; +ZOLP5TAB5 PO
--- NOTE | 2017-05-27 13:52 | PAIN ---
DATE OF SERVICE: 05/27/2017 INITIAL CONSULTATION CHIEF COMPLAINT: Low back and left lower extremity pain. HISTORY OF PRESENT ILLNESS: This is an 82-year-old female who presents with history of pain in low back and left lower extremity for about 2 months, not the result of any injury or action that she is aware of. It has been increasing in intensity in the low back bilaterally and into the left lower extremity with tingling paresthesia type sensation in the left leg, posterior gluteus, posterior thigh and into the calf on the left side, laterally and posteriorly. The patient reports it as shooting, intermittent in intensity, but tingling with numbness in the leg, primarily at night, but with walking and standing as well exacerbating it. The patient reports it is better with sitting or lying down, but does awaken her from sleep about once a night. She has to reposition and she is able to get back to sleep. It does not affect her bowel or bladder control, but does affect her ability to walk. She is using a cane in her right hand to ambulate. The patient describes the disability rating from 0 to 10, 10 being the worst as a 4 with family and home responsibilities, 5 with recreation, 1 with social activity, 2 with occupation and self care. The patient did have MRI scan of the lumbar spine showing mild to moderate lumbar spondylosis, multilevel disk bulging, but without discrete disk herniations, L4-L5 and L5-S1 anterolisthesis and mild degenerative retrolisthesis with foraminal narrowing mild at L2-L3, but more significant at L4-L5 secondary to the anterolisthesis. The patient reports no loss of motor function, but left leg does fatigue much more easily than the right with ambulation, better with sitting or lying down. PAST MEDICAL HISTORY: Significant for chronic obstructive pulmonary disease, hearing loss, shortness of breath, pneumonias, hypertension, hyperlipidemia, coronary artery disease, arthritis, esophageal reflux. PAST SURGICAL HISTORY: Include right carotid endarterectomy, appendectomy, cardiac stent placements, coronary artery bypass grafting, open reduction and internal fixation of the left wrist, bunion removed on the right foot, bilateral cataract extractions. CURRENT MEDICATIONS: Include hydroxychloroquine, metoprolol, pravastatin, ipratropium inhaler, aspirin, zolpidem, Klor-Con, pantoprazole, Plavix, ropinirole, Pacerone, isosorbide, Lasix, and vitamin D. ALLERGIES: THE PATIENT HAS ALLERGY TO MORPHINE, DEMEROL AND DALTON INHIBITORS. FAMILY HISTORY: Significant for diabetes. SOCIAL HISTORY: The patient does not smoke, drinks alcohol only very rarely, less than once a month. The patient is single, retired and lives locally in [place], [place]. REVIEW OF SYSTEMS: The patient's review of systems is positive for those items mentioned in the history of present illness. All systems reviewed and otherwise negative. It is complete, full and well documented on the patient's chart. PHYSICAL EXAMINATION: VITAL SIGNS: The patient's blood pressure is 137/63, pulse 56, respirations 16, temperature 97.4 degrees Fahrenheit, height is 5 feet 8 inches, weight is 151 pounds. GENERAL: The patient is awake, alert, oriented, appropriate, very pleasant demeanor. HEENT: Head shows normocephalic, atraumatic. Extraocular movements intact, symmetrical. Oral cavity: Mucous membranes moist and pink. Dentition intact. NECK: Shows anterior throat supple without palpable lymphadenopathy noted. Swallow reflex is symmetrical. CHEST: Shows normal on inspection. Breath sounds clear to auscultation bilaterally. HEART: Shows S1, S2 clear. ABDOMEN: Soft, nontender, nondistended. No palpable organomegaly. No rebound or guarding demonstrated. BACK: Shows spine grossly in the midline, normal-appearing cervical lordotic curvature, thoracic kyphotic curvature, and lumbar lordotic curvature. No previous bruises, lesions, rashes or scars are noted. Lumbar paraspinous muscle shows symmetrical on inspection, with palpation shows some moderate tenderness but only in the low lumbar distribution and only diffusely, but bilaterally without evidence of atrophy, hypertrophy, no asymmetry. The patient shows good rotational motion of the lumbar spine both laterally as well as extension and flexion without significant pain reported, greater than 10 degrees right and left, extension greater than 10 degrees, forward flexion 45 degrees without difficulty. EXTREMITIES: The patient's lower extremities show deep tendon reflexes 1+ in the patellar and tendo calcaneus tendons are equal. Motor exam is strong with 5/5 dorsiflexion, extension, quadriceps and hamstring flexion and symmetrical. Peripheral pulses are 1+ posterior tibial. No peripheral edema is noted bilaterally. The patient's straight leg raise noted to be slightly positive on the left at about 40-45 degrees, decreased with knee flexion, right side is negative. Gaenslen's and Geronimo maneuvers are negative bilaterally. The patient is able to stand, has difficulty trying to stand on her toes as she loses balance quickly. With putting all of her weight on her left leg she does lose balance very easily and feels unstable. Again, walking with a slight limping antalgic gait favoring the left lower extremity and with using a cane in her right hand to ambulate. IMPRESSION: 1. This is an 82-year-old female with approximately 2-month history of increasing pain, low back, left lower extremity in a radicular fashion. 2. MRI scan of the lumbar spine as noted. 3. Coronary artery disease. 4. Hypertension. 5. Arthritis. PLAN: Options were discussed with the patient including conservative medical management, physical therapy, interventional techniques. She would like to pursue interventional techniques. We discussed a lumbar epidural steroid injection using description as well as an optical model to describe the procedure. We will wait for preclearance with the patient's supervisor [employer] regarding holding the Plavix for 7 days prior to procedure. The patient will continue to take the Plavix and will follow up once we have received clearance from her supervisor [employer] to hold this medication. If deemed appropriate and safe, we will have her return for lumbar epidural steroid injection at that time. PRUDENCIO VARELA MD DR: LEONEL/isai JOB#: [id number] / [id number]
== END | disposition home or self-care (01) ==
LOC: PNCL 10:35
PROVIDERS: ATTEND Anesthesiology
DX: I10 Essential (primary) hypertension (principal); I25.10 Atherosclerotic heart disease of native coronary artery without angina pectoris; J44.9 Chronic obstructive pulmonary disease, unspecified; E78.5 Hyperlipidemia, unspecified; K21.9 Gastro-esophageal reflux disease without esophagitis; M17.12 Unilateral primary osteoarthritis, left knee; Z79.82 Long term (current) use of aspirin; Z95.5 Presence of coronary angioplasty implant and graft; Z95.1 Presence of aortocoronary bypass graft
CPT/HCPCS: G0463

== ENCOUNTER → 2017-06-17 | Outpatient (CLI) | payer MEDICARE, OTHER ==
[~2017-06-17] MED LIST changes: -ALBU1.25 NEB; -AMIO200T2 PO; -AMIO200T7 PO; -AMOX1TAB11 PO; -ASPI-630 PO; -ATEN50TA PO; -CIPR500T94 PO; -CLOP75TA57 PO; -ESOM20CA30 PO; -FENO48TA16 PO; -FERR-26 PO; -FLUT1DIS3 IH; -FURO-68 PO; -GUAI-108 PO; -HYDR-2758 PO; -HYDR200T PO; +IOHEXOL 180 MG/ML 10 ML VIAL.; -IPRA3AMP NEB; -ISOS30TA4 PO; -ISOS60TA PO; -METO25TA4 PO; -PANT40TA3 PO; -PANT40TA5 PO; -POTA20TA12 PO; -PRAV20TA PO; -PRAV40TA2 PO; -PRED20TA PO; -Promethazine Hcl/Codeine PO; -ROPI0.5T PO; -TRYP30OI2 TP; -ZOLP5TAB5 PO; +methylPREDNISolone ACETATE 40 MG/ML VIAL.; +methylPREDNISolone ACETATE 80 MG/ML VIAL.
== END | disposition home or self-care (01) ==
LOC: PNCL 09:30
DX: M51.16 Intervertebral disc disorders with radiculopathy, lumbar region (principal); M47.26 Other spondylosis with radiculopathy, lumbar region; Z86.79 Personal history of other diseases of the circulatory system; E78.00 Pure hypercholesterolemia, unspecified; Z85.828 Personal history of other malignant neoplasm of skin; J43.9 Emphysema, unspecified; Z87.891 Personal history of nicotine dependence; K21.9 Gastro-esophageal reflux disease without esophagitis; Z85.3 Personal history of malignant neoplasm of breast; Z87.01 Personal history of pneumonia (recurrent); Z95.5 Presence of coronary angioplasty implant and graft; I11.0 Hypertensive heart disease with heart failure; I50.9 Heart failure, unspecified; Z90.49 Acquired absence of other specified parts of digestive tract; Z90.89 Acquired absence of other organs; Z88.6 Allergy status to analgesic agent; Z88.8 Allergy status to other drugs, medicaments and biological substances; Z83.3 Family history of diabetes mellitus; Z80.3 Family history of malignant neoplasm of breast; Z80.1 Family history of malignant neoplasm of trachea, bronchus and lung
CPT/HCPCS: 62323; J1030; J1040

== ENCOUNTER → 2017-07-15 | Outpatient (CLI) | payer MEDICARE, OTHER | END | disposition home or self-care (01) | LOC: PNCL 09:37 | DX: M51.16 Intervertebral disc disorders with radiculopathy, lumbar region (principal); M47.896 Other spondylosis, lumbar region | CPT/HCPCS: G0463 ==

== ENCOUNTER → 2017-12-17 | Outpatient (CLI) | payer MEDICARE, OTHER ==
[~2017-12-17] MED LIST changes: +LIDOCAINE 1% PF 2 ML VIAL.
== END ==
LOC: PNCL 11:02
DX: M51.16 Intervertebral disc disorders with radiculopathy, lumbar region (principal); M47.896 Other spondylosis, lumbar region; I25.2 Old myocardial infarction; E78.00 Pure hypercholesterolemia, unspecified; J43.9 Emphysema, unspecified; I11.0 Hypertensive heart disease with heart failure; K21.9 Gastro-esophageal reflux disease without esophagitis; M32.9 Systemic lupus erythematosus, unspecified; M19.90 Unspecified osteoarthritis, unspecified site; I25.10 Atherosclerotic heart disease of native coronary artery without angina pectoris; J96.10 Chronic respiratory failure, unspecified whether with hypoxia or hypercapnia; I50.32 Chronic diastolic (congestive) heart failure; Z95.5 Presence of coronary angioplasty implant and graft; Z98.890 Other specified postprocedural states; Z98.42 Cataract extraction status, left eye; Z98.41 Cataract extraction status, right eye; Z79.01 Long term (current) use of anticoagulants; Z87.01 Personal history of pneumonia (recurrent); Z87.891 Personal history of nicotine dependence; Z85.828 Personal history of other malignant neoplasm of skin; Z83.3 Family history of diabetes mellitus; Z82.49 Family history of ischemic heart disease and other diseases of the circulatory system; Z84.89 Family history of other specified conditions; Z79.82 Long term (current) use of aspirin; Z79.899 Other long term (current) drug therapy
CPT/HCPCS: 62323; J1030; J1040; Q9965

== ENCOUNTER → 2017-12-28 | Outpatient (CLI) | payer MEDICARE, OTHER | END | disposition home or self-care (01) | LOC: MAMMO 08:29 | DX: Z12.31 Encounter for screening mammogram for malignant neoplasm of breast (principal); I11.0 Hypertensive heart disease with heart failure; I50.9 Heart failure, unspecified; J44.9 Chronic obstructive pulmonary disease, unspecified; K21.9 Gastro-esophageal reflux disease without esophagitis; E78.5 Hyperlipidemia, unspecified; E78.00 Pure hypercholesterolemia, unspecified | CPT/HCPCS: 77063; 77067 ==

== ENCOUNTER → 2018-01-17 | Outpatient (CLI) | payer MEDICARE, OTHER ==
[~2018-01-17] MED LIST changes: -LIDOCAINE 1% PF 2 ML VIAL.; +LIDOCAINE 2% PF 2ML VIAL.
== END | disposition home or self-care (01) ==
LOC: PNCL 10:38
DX: M51.16 Intervertebral disc disorders with radiculopathy, lumbar region (principal); M47.26 Other spondylosis with radiculopathy, lumbar region; I11.0 Hypertensive heart disease with heart failure; I50.32 Chronic diastolic (congestive) heart failure; Z88.5 Allergy status to narcotic agent; Z88.8 Allergy status to other drugs, medicaments and biological substances; Z98.42 Cataract extraction status, left eye; Z98.41 Cataract extraction status, right eye; Z96.1 Presence of intraocular lens; I25.10 Atherosclerotic heart disease of native coronary artery without angina pectoris; Z95.1 Presence of aortocoronary bypass graft; Z95.5 Presence of coronary angioplasty implant and graft; Z79.01 Long term (current) use of anticoagulants; E78.00 Pure hypercholesterolemia, unspecified; J43.9 Emphysema, unspecified; Z87.01 Personal history of pneumonia (recurrent); Z90.49 Acquired absence of other specified parts of digestive tract; K21.9 Gastro-esophageal reflux disease without esophagitis; Z98.890 Other specified postprocedural states; M19.90 Unspecified osteoarthritis, unspecified site; Z87.891 Personal history of nicotine dependence; Z85.828 Personal history of other malignant neoplasm of skin; Z83.3 Family history of diabetes mellitus; Z80.1 Family history of malignant neoplasm of trachea, bronchus and lung; Z80.3 Family history of malignant neoplasm of breast; Z79.82 Long term (current) use of aspirin; I25.2 Old myocardial infarction; M32.9 Systemic lupus erythematosus, unspecified
CPT/HCPCS: 62323; J1030; J1040; J2001; Q9965

== ENCOUNTER → 2018-12-20 | Outpatient (CLI) | payer MEDICARE, OTHER ==
[~2018-12-20] MED LIST changes: +ALBU1.25 NEB; +AMIO200T4 PO; +AMIO200T7 PO; +AMOX1TAB11 PO; +ASPI-630 PO; +ATEN50TA PO; +CIPR500T94 PO; +CLOP75TA57 PO; +ESOM20CA30 PO; +FENO48TA16 PO; +FERR325T14 PO; +FLUT1DIS3 IH; +FURO-68 PO; +GUAI-108 PO; +HYDR-2761 PO; +HYDR200T71 PO; -IOHEXOL 180 MG/ML 10 ML VIAL.; +IPRA3AMP29 NEB; +ISOS30TA4 PO; +ISOS60TA PO; -LIDOCAINE 2% PF 2ML VIAL.; +METO25TA4 PO; +PANT40TA77 PO; +POTA20TA12 PO; +PRAV20TA PO; +PRAV40TA2 PO; +PRED20TA PO; +Promethazine Hcl/Codeine PO; +ROPI0.5T PO; +TRYP30OI2 TP; +ZOLP5TAB5 PO; -methylPREDNISolone ACETATE 40 MG/ML VIAL.; -methylPREDNISolone ACETATE 80 MG/ML VIAL.
--- NOTE | 2018-12-20 14:10 | CARD ---
MR#: [id number] Date of Study: 12/20/2018 Ordering Physician: PEYTON LONG, Referring Physician: PEYTON LONG, Tech: Leigh Ann Charlton APPROVED REPORT EXAM: Two-dimensional and M-mode echocardiogram with Doppler and color Doppler. Other Information Quality : AverageHR: 52bpm Technically limited study due to COPD INDICATION COPD Mitral Valve Disease RISK FACTORS Hypertension Hyperlipidemia Previous smoker 2D DIMENSIONS RVDd3.1 (2.9-3.5cm)Left Atrium(2D)2.8 (1.6-4.0cm) IVSd1.6 (0.7-1.1cm)Aortic Root(2D)3.3 (2.0-3.7cm) LVDd4.4 (3.9-5.9cm)LVOT Diameter2.0 (1.8-2.4cm) PWd1.1 (0.7-1.1cm)LVDs3.1 (2.5-4.0cm) FS (%) 30.2 %SV50.1 ml LVEF(%)57.8 (>50%) Aortic Valve AoV Peak Garry.104.9cm/sAoV VTI20.6cm AO Peak GR.4.4mmHgLVOT Peak Garry.91.3cm/s LVOT VTI 21.02cmAO Mean GR.2mmHg LINDA (VMAX)2.29ec4FNZ (VTI)3.27cm2 Mitral Valve MV E Dlaihfho05.2cm/sMV E Peak Gr.61mmHg MV DECEL CSTP207swDI A Hrphpoqm66.0cm/s MV NAG21oyH/A Ratio0.9 MVA (PHT)3.05cm2 TDI E/Lateral E'9.7E/Medial E'13.4 Pulmonary Valve PV Peak Ljnngedt021.7cm/sPV Peak Grad.4mmHg Tricuspid Valve TR P. Lgwutzah494hk/sRAP YKSMRXUE8wxUt TR Peak Gr.71yqGsYLQL70gwMb Pulmonary Vein S1 Byqzrtgu04.4cm/sD2 Guqnkzby81.0cm/s PVa orvtvtzd157upka LEFT VENTRICLE The left ventricle is normal size. There is mild to moderate concentric left ventricular hypertrophy. The left ventricular systolic function is mildly decreased. EF 40-45%. There is mild global hypokine sis. Transmitral Doppler flow pattern is Grade I-abnormal relaxation pattern. RIGHT VENTRICLE The right ventricle is normal size. There is normal right ventricular wall thickness. The right ventr icular systolic function is normal. ATRIA The left atrium size is normal. The right atrium size is normal. The interatrial septum is intact wit h no evidence for an atrial septal defect or patent foramen ovale as noted on 2-D or Doppler imaging. AORTIC VALVE The aortic valve is mildly sclerotic. Doppler and Color Flow revealed no significant aortic regurgita tion. There is no significant aortic valvular stenosis. MITRAL VALVE The mitral valve is normal in structure and function. There is no evidence of mitral valve prolapse. There is no mitral valve stenosis. Doppler and Color-flow revealed trace mitral regurgitation. TRICUSPID VALVE The tricuspid valve is normal in structure and function. Doppler and Color Flow revealed trace tricus pid regurgitation with an estimated PAP of 25 mmHg. There is no tricuspid valve stenosis. PULMONIC VALVE The pulmonic valve is not well visualized. Doppler and Color Flow revealed no pulmonic valvular regur gitation. There is no pulmonic valvular stenosis. GREAT VESSELS The aortic root is normal in size. The IVC is normal in size and collapses >50% with inspiration. PERICARDIAL EFFUSION There is no evidence of significant pericardial effusion. Critical Notification Critical Value: No <Conclusion> The left ventricular systolic function is mildly decreased. EF 40-45%. There is normal LV segmental wall motion. There is mild global hypokinesis. Signed by : Erlin River, Electronically Approved : 12/20/2018 14:10:34
== END | disposition home or self-care (01) ==
LOC: ECHO 10:26
PROVIDERS: ATTEND Internal Medicine Cardiovascular Disease
DX: I11.9 Hypertensive heart disease without heart failure (principal); I05.9 Rheumatic mitral valve disease, unspecified; E78.5 Hyperlipidemia, unspecified; J44.9 Chronic obstructive pulmonary disease, unspecified; Z87.891 Personal history of nicotine dependence
CPT/HCPCS: 93306

== ENCOUNTER → 2019-01-05 | Outpatient (CLI) | payer MEDICARE, OTHER ==
--- NOTE | 2019-01-05 09:31 | RAD ---
DATE: 01/05/2019. EXAM: MAMMO SUJEY SCREENING BILATERAL HISTORY: Routine screening. COMPARISON: Previous mammogram from 2018 and 2017. This study was interpreted with the benefit of Computerized Aided Detection (CAD). FINDINGS: Breast Density: SCATTERED The breast parenchyma shows scattered fibroglandular densities. Breast parenchyma level B. The skin and nipples are within normal limits. No suspicious calcifications, spiculated mass or area of architectural distortion. Couple of surgical clips are seen in the right anterior breast with stable round masses in the retroareolar region. IMPRESSION: No mammographic evidence of malignancy. Stable mammogram. BI-RADS CATEGORY: 2 BENIGN FINDING(S) RECOMMENDED FOLLOW-UP: 12M 12 MONTH FOLLOW-UP PQRS compliance statement: Patient information was entered into a reminder system with a target due date for the next mammogram. Mammography is a sensitive method for finding small breast cancers, but it does not detect them all and is not a substitute for careful clinical examination. A negative mammogram does not negate a clinically suspicious finding and should not result in delay in biopsying a clinically suspicious abnormality. "Our facility is accredited by the [employer] Mammography Program."
== END | disposition home or self-care (01) ==
LOC: MAMMO 08:02
PROVIDERS: ATTEND Family Medicine
DX: Z12.31 Encounter for screening mammogram for malignant neoplasm of breast (principal); N64.89 Other specified disorders of breast
CPT/HCPCS: 77063; 77067

== ENCOUNTER 2019-08-21 09:57 | Emergency (ER) | payer MEDICARE, OTHER ==
[~2019-08-21] VITALS: Ht 172.7 cm; Wt 68.0 kg
[2019-08-21] MEDS ORDERED: IPRATRPIUM/ALBUTEROL 0.5/2.5MG 3 ML NEBU. NEB ONE (11:15)
--- NOTE | 2019-08-21 11:17 | PHYS DOC ---
Past Medical History Past Medical History: Bronchitis, CHF, COPD, GERD, Hypertension, [place] Additional Past Medical Histor: EMPHYSEMA Past Surgical History: Appendectomy, Coronary Bypass Surgery, Other Additional Past Surgical Histo: carotid artery cleared out, cardiac stents 2013, LEFT WRIST SX Smoking Status: Former Smoker Alcohol Use: None Drug Use: None Adult General Chief Complaint Chief Complaint: COUGH HPI HPI Patient is a pleasant 84-year-old female who presents to the emergency department for evaluation of a productive cough which has been present for the past 3 weeks. She has also had some nasal congestion, but has not had any fevers. She denies any chest pain, or orthopnea. She is no more short of breath than her baseline. Her cough has been productive of cardoso, occasionally clear sputum. She denies any nausea, vomiting, or diarrhea. There are no alleviating, or exacerbating factors to her symptoms otherwise. She does take albuterol nebulizers at home regularly. Review of Systems Review of Systems Constitutional: Denies fever or chills [] Eyes: Denies change in visual acuity, redness, or eye pain [] HENT: Denies otalgia or sore throat [] Respiratory: Denies pleuritic chest pain or shortness of breath [] Cardiovascular: The patient denies any shortness of breath, chest pain, palpitations, or orthopnea [] GI: Denies abdominal pain, nausea, vomiting, bloody stools or diarrhea [] : Denies dysuria or hematuria [] Musculoskeletal: Denies back pain or joint pain [] Integument: Denies rash or skin lesions [] Neurologic: Denies headache, focal weakness or sensory changes [] Endocrine: Denies polyuria or polydipsia [] All other systems were reviewed and found to be within normal limits, except as documented in this note. Current Medications Current Medications Current Medications Medications (Trade) Dose Ordered Sig/Nancy Start Time Stop Time Status Last Admin Dose Admin Albuterol/ Ipratropium (Duoneb) 3 ml 1X ONCE 08/21/19 11:15 08/21/19 11:16 DC 08/21/19 11:41 3 ML Allergies Allergies Allergies Coded Allergies Type Severity Reaction Last Updated Verified morphine Allergy Severe Hives-PREVIOUSLY TOLERATED VICODIN 08/20/14 Yes meperidine Allergy Intermediate Unknown 08/20/14 Yes DALTON Inhibitors Adverse Reaction Mild COUGH 11/17/16 Yes Physical Exam Physical Exam PHYSICAL EXAM: CONSTITUTIONAL: Well developed, well nourished HEAD: normocephalic, atraumatic EENT: PERRL, EOMI. Conjunctivae normal color, sclerae non-icteric; moist mucous membranes. NECK: Supple, non-tender; no meningismus. LUNGS: There are scattered expiratory wheezes, with faint scattered rhonchi, without any rales, breathing even and unlabored. Mildly diminished air movement. HEART: Regular rate and rhythm, no murmur CHEST: No deformity; non-tender ABDOMEN: The abdomen is soft, and non-tender, no masses or bruits. EXTREM: Normal ROM; no deformity, no calf tenderness. Normal pulses palpable in all extremities. There is no pedal edema. SKIN: No rash; no diaphoresis NEURO: Alert; normal speech and cognition; CN's grossly intact; strength grossly intact without focal deficit. BACK: No CVA TTP. Current Patient Data Vital Signs Vital Signs Date Time Temp Pulse Resp B/P (MAP) Pulse Ox O2 Delivery O2 Flow Rate FiO2 08/21/19 11:44 94 Room Air 08/21/19 10:21 98.1 24 132/49 (76) 98.1 Lab Values Laboratory Tests Test 08/21/19 10:13 08/21/19 11:55 Influenza Type A Antigen Negative (NEGATIVE) Influenza Type B Antigen Negative (NEGATIVE) White Blood Count 6.3 x10^3/uL (4.0-11.0) Red Blood Count 4.74 x10^6/uL (3.50-5.40) Hemoglobin 14.2 g/dL (12.0-15.5) Hematocrit 43.7 % (36.0-47.0) Mean Corpuscular Volume 92 fL (79-100) Mean Corpuscular Hemoglobin 30 pg (25-35) Mean Corpuscular Hemoglobin Concent 33 g/dL (31-37) Red Cell Distribution Width 15.0 % (11.5-14.5) H Platelet Count 103 x10^3/uL (140-400) L Neutrophils (%) (Auto) 79 % (31-73) H Lymphocytes (%) (Auto) 11 % (24-48) L Monocytes (%) (Auto) 7 % (0-9) Eosinophils (%) (Auto) 2 % (0-3) Basophils (%) (Auto) 0 % (0-3) Neutrophils # (Auto) 5.0 x10^3/uL (1.8-7.7) Lymphocytes # (Auto) 0.7 x10^3/uL (1.0-4.8) L Monocytes # (Auto) 0.5 x10^3/uL (0.0-1.1) Eosinophils # (Auto) 0.1 x10^3/uL (0.0-0.7) Basophils # (Auto) 0.0 x10^3/uL (0.0-0.2) Sodium Level 143 mmol/L (136-145) Potassium Level 4.1 mmol/L (3.5-5.1) Chloride Level 107 mmol/L (98-107) Carbon Dioxide Level 27 mmol/L (21-32) Anion Gap 9 (6-14) Blood Urea Nitrogen 14 mg/dL (7-20) Creatinine 1.0 mg/dL (0.6-1.0) Estimated GFR (Cockcroft-Gault) 53.1 BUN/Creatinine Ratio 14 (6-20) Glucose Level 79 mg/dL (70-99) Calcium Level 8.8 mg/dL (8.5-10.1) Total Bilirubin 0.6 mg/dL (0.2-1.0) Aspartate Amino Transferase (AST) 38 U/L (15-37) H Alanine Aminotransferase (ALT) 33 U/L (14-59) Alkaline Phosphatase 88 U/L (46-116) Troponin I Quantitative 0.025 ng/mL (0.000-0.055) UL-Txm-H-Type Natriuretic Peptide 6588 pg/mL (0-449) H Total Protein 6.6 g/dL (6.4-8.2) Albumin 3.3 g/dL (3.4-5.0) L Albumin/Globulin Ratio 1.0 (1.0-1.7) Laboratory Tests 08/21/19 11:55 Laboratory Tests 08/21/19 11:55 EKG EKG [] Normal sinus rhythm at a rate of 59 bpm, left axis deviation, right bundle- branch block, left anterior fascicular block, nonspecific ST/T changes without acute ischemic ST-T changes, or significant change compared to the patient's prior EKG. Radiology/Procedures Radiology/Procedures PROCEDURE: CHEST PA & LATERAL CHEST PA LATERAL Clinical indications: Cough. COMPARISON: July 06, 2016. Findings: Hyperinflation is again seen consistent with COPD. Chronic bilateral interstitial lung disease is again evident and is stable. The previously seen left midlung zone and left lower lung zone infiltrates have resolved. No pleural effusion or pneumothorax is seen. Heart size is enlarged but stable. A sternotomy is again evident. Mediastinum and both lara are stable. The osseous structures appear intact. Impression: COPD. Previously seen left lung field infiltrates have resolved. No new abnormality.[] Course & Med Decision Making Course & Med Decision Making Pertinent Labs and Imaging studies reviewed. (See chart for details) []1:00 PM: The patient's condition remains stable. Her BNP is lower than prior values. I discussed test results, the need for close PCP follow-up, and return precautions in detail. Dragon Disclaimer Dragon Disclaimer This electronic medical record was generated, in whole or in part, using a voice recognition dictation system. Departure Departure Impression: Primary Impression: Cough Disposition: 01 HOME, SELF-CARE Condition: STABLE Referrals: MILADIS CESPEDES MD (PCP) Patient Instructions: Acute Bronchitis, Cough, Adult Scripts Prednisone (PREDNISONE) 20 Mg Tablet 40 MG PO DAILY for 5 Days, #10 TAB Prov: RAFAELA CRAWLEY MD 08/21/19 Azithromycin (AZITHROMYCIN TABLET) 250 Mg Tablet 1 PKG PO UD, #6 TAB Prov: RAFAELA CRAWLEY MD 08/21/19 RAFAELA CRAWLEY MD Aug 21, 2019 11:17
--- NOTE | 2019-08-21 11:40 | RAD ---
CHEST PA LATERAL Clinical indications: Cough. COMPARISON: July 06, 2016. Findings: Hyperinflation is again seen consistent with COPD. Chronic bilateral interstitial lung disease is again evident and is stable. The previously seen left midlung zone and left lower lung zone infiltrates have resolved. No pleural effusion or pneumothorax is seen. Heart size is enlarged but stable. A sternotomy is again evident. Mediastinum and both lara are stable. The osseous structures appear intact. Impression: COPD. Previously seen left lung field infiltrates have resolved. No new abnormality. Electronically signed by: Kartik Rey MD (08/21/2019 11:37 AM) [facility] [place]
[2019-08-21 11:49] LABS: INFLUENZA A PATIENT NEGATIVE (NEGATIVE); INFLUENZA B PATIENT NEGATIVE (NEGATIVE)
--- NOTE | 2019-08-21 12:10 | EKG ---
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
[2019-08-21 12:16] LABS: BASO % 0 % (0-3); EOS # 0.1 x10^3/uL (0.0-0.7); EOS % 2 % (0-3); HEMATOCRIT 43.7 % (36.0-47.0); HEMOGLOBIN 14.2 g/dL (12.0-15.5); LYMPH # 0.7 x10^3/uL (1.0-4.8); LYMPH % 11 % (24-48); MEAN CORPUSCULAR HEMOGLOBIN 30 pg (25-35); MEAN CORPUSCULAR HGB CONC 33 g/dL (31-37); MEAN CORPUSCULAR VOLUME 92 fL (79-100); MONO # 0.5 x10^3/uL (0.0-1.1); MONO % 7 % (0-9); NEUT % 79 % (31-73); PLATELET COUNT 103 x10^3/uL (140-400); RED BLOOD COUNT 4.74 x10^6/uL (3.50-5.40); WHITE BLOOD COUNT 6.3 x10^3/uL (4.0-11.0)
[2019-08-21 12:20] LABS: CALCIUM 8.8 mg/dL (8.5-10.1); GFR 53.1; POTASSIUM 4.1 mmol/L (3.5-5.1)
[2019-08-21 12:26] LABS: ALBUMIN 3.3 g/dL (3.4-5.0); TOTAL BILIRUBIN 0.6 mg/dL (0.2-1.0); TOTAL PROTEIN 6.6 g/dL (6.4-8.2)
[2019-08-21 12:58] VITALS: BP 133/66
[2019-08-21] MEDS ORDERED: AZIT250T6 PO (13:02)
[2019-08-21] MEDS ORDERED: PRED20TA PO (13:02)
== END 2019-08-21 13:14 | disposition home or self-care (01) ==
LOC: ER 09:57
DX: R05 Cough (principal); R09.81 Nasal congestion; I45.2 Bifascicular block; K21.9 Gastro-esophageal reflux disease without esophagitis; I11.0 Hypertensive heart disease with heart failure; I50.9 Heart failure, unspecified; J44.9 Chronic obstructive pulmonary disease, unspecified; I25.2 Old myocardial infarction; Z95.1 Presence of aortocoronary bypass graft; Z95.5 Presence of coronary angioplasty implant and graft; Z87.891 Personal history of nicotine dependence; Z88.5 Allergy status to narcotic agent; Z88.8 Allergy status to other drugs, medicaments and biological substances
CPT/HCPCS: 36415; 71046; 80053; 83880; 84484; 85025; 87804; 93005; 94640; 99285-25

== ENCOUNTER → 2020-02-21 | Outpatient (CLI) | payer MEDICARE, OTHER ==
[~2020-02-21] MED LIST changes: +AZIT250T6 PO
--- NOTE | 2020-02-22 10:34 | RAD ---
DATE: 02/21/2020 9:47 AM EXAM: MAMMO SUJEY SCREENING BILATERAL HISTORY: Screening COMPARISON: 01/05/2019 Bilateral CC and MLO views of the breasts were performed. Bilateral breast tomosynthesis was performed in CC and MLO projections. This study was interpreted with the benefit of Computerized Aided Detection (CAD). FINDINGS: Breast Density: FATTY The Breast Parenchyma is primarily fatty replaced. Breast parenchyma level density A. No suspicious masses, microcalcifications or architectural distortion is present to suggest malignancy in either breast. The visualized axillae are unremarkable. IMPRESSION: No mammographic evidence of malignancy. BI-RADS CATEGORY: 1 NEGATIVE RECOMMENDED FOLLOW-UP: 12M 12 MONTH FOLLOW-UP Annual screening mammography is recommended, unless clinically indicated sooner based on symptoms or change in physical exam. PQRS compliance statement: Patient information was entered into a reminder system with a target due date for the next mammogram. Mammography is a sensitive method for finding small breast cancers, but it does not detect them all and is not a substitute for careful clinical examination. A negative mammogram does not negate a clinically suspicious finding and should not result in delay in biopsying a clinically suspicious abnormality. "Our facility is accredited by the [employer] Mammography Program."
== END | disposition home or self-care (01) ==
LOC: MAMMO 09:41
PROVIDERS: ATTEND Family Medicine
DX: Z12.31 Encounter for screening mammogram for malignant neoplasm of breast (principal)
CPT/HCPCS: 77063; 77067

== ENCOUNTER 2020-05-18 09:59 | Emergency (ER) | payer MEDICARE, OTHER ==
[~2020-05-18] VITALS: Ht 172.7 cm; Wt 72.3 kg
[~2020-05-18 09:59] MED LIST changes: -AMIO200T4 PO; +AMIO200T6 PO
--- NOTE | 2020-05-18 10:37 | PHYS DOC ---
Past Medical History Past Medical History: Bronchitis, CHF, COPD, GERD, Hypertension, [place] Additional Past Medical Histor: EMPHYSEMA Past Surgical History: Appendectomy, Coronary Bypass Surgery, Other Additional Past Surgical Histo: carotid artery cleared out, cardiac stents 2013, LEFT WRIST SX Smoking Status: Former Smoker Alcohol Use: None Drug Use: None General Adult EDM: Chief Complaint: BACK PAIN OR INJURY HPI: HPI: 85 yo F PMH CAD (on plavix), CHF, COPD, HTN and HLD, presents the ED with her sister (who lives across the street) complaints of right sided low back pain for the past week, started when pt was getting out of bed, relieved when leaning forward. Saw her pcp/sewer maintenance supervisor who ordered lumbar and pelvic x-rays and described a steroid Dosepak for 12 days and Lidoderm patches. Patient reports sx relief with ibuprofen 800 mg. H/o herniated disk a few years ago in which pt was seen by pain management, no h/o mri. Pt cannot recall any specific trauma or injury. No history of back surgery. Patient also reports her urine is "smelly," and request testing for UTI. Denies any falls or head injury. Patient states pain is so bad she required assistance to get out of bed and put on clothing. Review of Systems: Review of Systems: Constitutional: Denies fever or chills. [] Eyes: Denies change in visual acuity. [] HENT: Denies nasal congestion or sore throat. [] Respiratory: Denies cough or shortness of breath. [] Cardiovascular: Denies chest pain or edema. [] GI: Denies abdominal pain, nausea, vomiting, bloody stools or diarrhea. [] : Denies dysuria. [] Musculoskeletal: Denies joint pain or swelling Integument: Denies rash. [] Neurologic: Denies headache, neck stiffness, focal weakness or sensory changes. [] Endocrine: Denies polyuria or polydipsia. [] Lymphatic: Denies swollen glands. [] Psychiatric: Denies depression or anxiety. [] Heart Score: Risk Factors: Risk Factors: DM, Current or recent (<one month) smoker, HTN, HLP, family history of CAD, obesity. Risk Scores: Score 0 - 3: 2.5% MACE over next 6 weeks - Discharge Home Score 4 - 6: 20.3% MACE over next 6 weeks - Admit for Clinical Observation Score 7 - 10: 72.7% MACE over next 6 weeks - Early Invasive Strategies Allergies: Allergies: Allergies Coded Allergies Type Severity Reaction Last Updated Verified morphine Allergy Severe Hives-PREVIOUSLY TOLERATED VICODIN 08/20/14 Yes meperidine Allergy Intermediate Unknown 08/20/14 Yes DALTON Inhibitors Adverse Reaction Mild COUGH 05/07/16 Yes Physical Exam: PE: Constitutional: Well developed, well nourished, no acute distress, non-toxic appearance. [] HENT: Normocephalic, atraumatic, Eyes: EOMI, conjunctiva normal, no discharge. [] Neck: Normal range of motion, supple, Cardiovascular: s1/2 present Lungs & Thorax: Speaking in full sentences, bilateral equal chest rise Abdomen: soft, no tenderness, Skin: Warm, dry, no erythema, no rash. [] Back: +right SI joint ttp, no CVA tenderness, straight leg positive on right Extremities: No tenderness, no cyanosis, no clubbing, ROM intact, no edema. [] Neurologic: Alert and oriented X 3, normal motor function, normal sensory function, no focal deficits noted, denies any saddle anesthesia, no urinary bowel retention or incontinence Psychologic: Affect normal, judgement normal, mood normal. [] EKG: EKG: [] Radiology/Procedures: Radiology/Procedures: []IMAGING REPORT Signed PATIENT: MARGO LYNN ACCOUNT: [id number] : 1935 LOCATION: ER AGE: 85 SEX: F EXAM STATUS: PRE ER ORD. PHYSICIAN: JOSE MARTIN DO REASON: low back pain PROCEDURE: CT LUMBAR SPINE WO CONTRAST CT pelvis without contrast, CT lumbar spine without contrast. HISTORY: Low back pain CT PELVIS: CT scan of pelvis was done without contrast. There is a fracture through the anterior wall the sacrum at S2 without displacement. There is mild subluxation at L5-S1 with facet arthritis at L5-S1. There is mild degenerative change at the SI joints. Coccyx is in normal alignment. There is no pubic ramus fracture. A hip fracture is not identified. There is no other pelvic fracture noted. There is diverticulosis of the colon without diverticulitis. The bladder is very distended. Uterus and ovaries are unremarkable. There is no bowel obstruction. IMPRESSION: 1. Nondisplaced fracture of the sacrum. 2. Distended bladder. End impression CT lumbar spine Axial CT images were obtained to the lumbar spine. There are intrarenal calculi in the left kidney. There is atherosclerotic change in the aorta without an aneurysm. There is mild lumbar scoliosis. There is no acute lumbar fracture. There is lower lumbar facet arthritis. There is mild spondylolisthesis at L4-5 and L5-S1. There is no focal disc protrusion or spinal stenosis at L1-2. There is bulging of the disc at L2-3 without spinal stenosis or foraminal stenosis. There is mild facet arthritis at L2-3. There is mild facet arthritis with bulging of the disc at L3-4 with mild lateral recess narrowing. There is marked facet arthritis at L4-5 with mild degenerative spondylolisthesis but without a focal disc protrusion or spinal stenosis. There is facet arthritis at L5-S1 without a focal disc protrusion or spinal stenosis. IMPRESSION: 1. Degenerative changes in the lumbar spine. 2. No acute lumbar fracture. 3. Mild spondylolisthesis at L4-5 and L5-S1. 4. Left renal calculi. 5. Mild scoliosis. PQRS Compliance Statement: One or more of the following individualized dose reduction techniques were utilized for this examination: 1. Automated exposure control 2. Adjustment of the mA and/or kV according to patient size 3. Use of iterative reconstruction technique Electronically signed by: Lawrence Hoang MD (05/18/2020 11:44 AM) [facility] DICTATED and SIGNED BY: LAWRENCE HOANG MD DATE: 05/18/20 [id number] 0 Course & Med Decision Making: Course & Med Decision Making Pertinent Labs and Imaging studies reviewed. (See chart for details) Concern for right LE neuropathy in the setting of a nondisplaced sacral fracture. Delayed discharge due to pt requesting uti check along with delay in obtaining urine (pt had not voided). Nitrite positive uti-abx sent to pharmacy. Strict ED return precautions were given for saddle anesthesia, fever, flank pain, n/v/, dehydration, flu-like sxs, urinary bowel retention or incontinence. Encouraged urgent outpatient follow-up with PMD and ortho/neurosx. Life- threatening processes were considered but are low suspicion at this time, given history and physical exam. Pt was educated on all prescription medications and adverse effects. All patient's questions were answered and pt was stable at time of discharge. Life/limb-threatening differential includes but is not limited to, aortic dissection/aneurysm, cauda equina syndrome, transverse myelitis, spinal cord compression, epidural abscess or hematoma, osteomyelitis, disc herniation, surgical abdomen, stable or unstable fracture, renal/ureteral colic, sepsis, musculoskeletal injury, traumatic injury, pyelonephritis, intraabdominal or pelvic bleeding. I spoken with the patient and her caregivers. I explained the patient's con dition, diagnoses and treatment plan based on the information available to me at this time. I have answered the patient and her caregiver's questions and addressed any concerns. The patient and her caregivers have a good understanding of patient's diagnosis, condition and treatment plan as can be expected at this point. Vital signs have been stable. Patient's condition is stable and appropriate for discharge from the emergency department. Patient will pursue further outpatient evaluation with primary care physician or other designated or consulting physician as outlined in the discharge instructions. The patient and/or caregivers are agreeable to this plan of care and follow-up instructions have been explained in detail. The patient and/or caregivers have received these instructions in written form and have expressed an understanding of the discharge instructions. The patient and/or caregivers are aware that any significant change of condition or worsening of symptoms should prompt immediate return to this or the closest emergency department or call to 911. Aurelia Disclaimer: Aurelia Disclaimer: This electronic medical record was generated, in whole or in part, using a voice recognition dictation system. Departure Departure Impression: Primary Impression: Sacral fracture, closed Additional Impressions: Neuropathy of right lower extremity UTI (urinary tract infection) Disposition: 01 DC HOME SELF CARE/HOMELESS Condition: STABLE Referrals: MILADIS CESPEDES MD (PCP) Patient Instructions: Back Pain, Adult, Urinary Tract Infection Additional Instructions: FOLLOW UP WITH ORTHOPEDICS: Orthopaedic Sports Medicine Orthopaedic Surgery [facility] Address: [address] [facility] [address] [place] [address] FOLLOW UP WITH NEUROSURGERY: Neurological [facility] Address: [address] [facility] [facility] [address] [place] [address] EMERGENCY DEPARTMENT GENERAL DISCHARGE INSTRUCTIONS Thank you for coming to [facility] Emergency Department (ED) today and trusting us with you care. We trust that you had a positive experience in our Emergency Department. If you wish to speak to the department management, you may call the Director at [phone]. YOUR FOLLOW UP INSTRUCTIONS ARE FOLLOWS: 1. Do you have a private Doctor? If you do not have a private doctor, please ask for a resource list of physicians or clinics that may be able to assist you with follow up care. 2. The Emergency Physicain has interpreted your x-rays. The X-Ray specialist will also review them. If there is a change in the findings, you will be notified in 48 hours when at all possible. 3. A lab test or culture has been done, your results will be reviewed and you will be notified if you need a change in treatment. ADDITIONAL INSTRUCTIONS AND INFORMATION: 1. Your care today has been supervised by a physician who is specially trained in emergency care. Many problems require more than one evaluation for a complete diagnosis and treatment. We recommend that you schedule your follow up appointment as recommended to ensure complete treatment of you illness or injury. If you are unable to obtain follow up care and continue to have a problem, or if your condition worsens, we recommend that you return to the ED. 2. We are not able to safely determine your condition over the phone nor are we able to give sound medical advice over the phone. For these safety reasons, if you call for medical advice we will ask you to come to the ED for further evaluation. 3. If you have any questions regarding these discharge instructions please call the ED at [phone]. SAFETY INFORMATION: In the interest of safety, wellness, and injury prevention; we encourage you to wear your sealbelt, if you smoke; quite smoking, and we encourage family to use a protective helmet for bicycling and other sporting events that present an increased risk for head injury. IF YOUR SYMPTOMS WORSEN OR NEW SYMPTOMS DEVELOP, OR YOU HAVE CONCERNS ABOUT YOUR CONDITION; OR IF YOUR CONDITION WORSENS WHILE YOU ARE WAITING FOR YOUR FOLLOW UP APPOINTMENT; EITHER CONTACT YOUR PRIMARY CARE DOCTOR, THE PHYSICIAN WHOSE NAME AND NUMBER YOU WERE GIVEN, OR RETURN TO THE ED IMMEDIATELY. Scripts Cephalexin (KEFLEX) 500 Mg Capsule 2 CAP PO Q12HR for 10 Days, #40 CAP Prov: JOSE MARTIN DO 05/18/20 Hydrocodone/Apap 5-325 (NORCO 5-325 TABLET) 1 Each Tablet 1 TAB PO Q6HRS for 4 Days, #16 TAB Prov: JOSE MARTIN DO 05/18/20 Docusate Sodium (COLACE) 100 Mg Capsule 1 CAP PO BID for 7 Days, #14 CAP 0 Refills Prov: JOSE MARTIN DO 05/18/20 JOSE MARTIN DO May 18, 2020 10:37
[2020-05-18] MEDS ORDERED: diazePAM 5 MG TABLET PO ONE (11:00)
--- NOTE | 2020-05-18 11:47 | RAD ---
CT pelvis without contrast, CT lumbar spine without contrast. HISTORY: Low back pain CT PELVIS: CT scan of pelvis was done without contrast. There is a fracture through the anterior wall the sacrum at S2 without displacement. There is mild subluxation at L5-S1 with facet arthritis at L5-S1. There is mild degenerative change at the SI joints. Coccyx is in normal alignment. There is no pubic ramus fracture. A hip fracture is not identified. There is no other pelvic fracture noted. There is diverticulosis of the colon without diverticulitis. The bladder is very distended. Uterus and ovaries are unremarkable. There is no bowel obstruction. IMPRESSION: 1. Nondisplaced fracture of the sacrum. 2. Distended bladder. End impression CT lumbar spine Axial CT images were obtained to the lumbar spine. There are intrarenal calculi in the left kidney. There is atherosclerotic change in the aorta without an aneurysm. There is mild lumbar scoliosis. There is no acute lumbar fracture. There is lower lumbar facet arthritis. There is mild spondylolisthesis at L4-5 and L5-S1. There is no focal disc protrusion or spinal stenosis at L1-2. There is bulging of the disc at L2-3 without spinal stenosis or foraminal stenosis. There is mild facet arthritis at L2-3. There is mild facet arthritis with bulging of the disc at L3-4 with mild lateral recess narrowing. There is marked facet arthritis at L4-5 with mild degenerative spondylolisthesis but without a focal disc protrusion or spinal stenosis. There is facet arthritis at L5-S1 without a focal disc protrusion or spinal stenosis. IMPRESSION: 1. Degenerative changes in the lumbar spine. 2. No acute lumbar fracture. 3. Mild spondylolisthesis at L4-5 and L5-S1. 4. Left renal calculi. 5. Mild scoliosis. PQRS Compliance Statement: One or more of the following individualized dose reduction techniques were utilized for this examination: 1. Automated exposure control 2. Adjustment of the mA and/or kV according to patient size 3. Use of iterative reconstruction technique Electronically signed by: Lawrence Hoang MD (05/18/2020 11:44 AM) [facility]
[2020-05-18] MEDS ORDERED: HYDR-3164 PO ×2 (12:20→12:21)
[2020-05-18] MEDS ORDERED: DOCU-109 PO (12:20)
[2020-05-18] MEDS ORDERED: HYDROcodone/APAP 5/325MG 1 TAB TABLET PO ONE (12:30)
[2020-05-18 12:56] VITALS: BP 151/67
[2020-05-18 13:44] LABS: BILIRUBIN,URINE NEGATIVE (NEG); CLARITY,URINE CLEAR; COLOR,URINE YELLOW; NITRITE,URINE POSITIVE (NEG); PH,URINE 5.5 (<5.0-8.0); PROTEIN,URINE NEGATIVE (NEG-TRACE); UROBILINOGEN,URINE 0.2 mg/dL (0.2 mg/dL)
[2020-05-18 14:04] LABS: BACTERIA,URINE MANY /HPF (0-FEW); RBC,URINE RARE /HPF (0-2); WBC,URINE RARE /HPF (0-4)
[2020-05-18] MEDS ORDERED: CEPH-264 PO (14:36)
[2020-05-18] MEDS ORDERED: FOSFOMYCIN TROMETHAMINE 3 GM PACKET PO ONE (15:00)
== END 2020-05-18 16:01 | disposition home or self-care (01) ==
LOC: ER 09:59
DX: S32.19XA Other fracture of sacrum, initial encounter for closed fracture (principal); N39.0 Urinary tract infection, site not specified; M54.5 Low back pain; G62.9 Polyneuropathy, unspecified; J44.9 Chronic obstructive pulmonary disease, unspecified; I11.0 Hypertensive heart disease with heart failure; I50.9 Heart failure, unspecified; K21.9 Gastro-esophageal reflux disease without esophagitis; I25.2 Old myocardial infarction; Z90.89 Acquired absence of other organs; Z98.890 Other specified postprocedural states; Z87.891 Personal history of nicotine dependence; Z88.6 Allergy status to analgesic agent; Z88.8 Allergy status to other drugs, medicaments and biological substances; X58.XXXA Exposure to other specified factors, initial encounter; Y93.89 Activity, other specified; Y92.89 Other specified places as the place of occurrence of the external cause; Y99.8 Other external cause status
CPT/HCPCS: 72131; 72192; 81001; 87086; 99285

== ENCOUNTER → 2020-07-01 | Outpatient (CLI) | payer MEDICARE, OTHER ==
[2020-05-24 15:00] VITALS: BP 126/50
[~2020-07-01] MED LIST changes: +CEPH-264 PO; +DOCU-109 PO; +HYDR-3164 PO; +LACT1CAP19 PO
--- NOTE | 2020-07-01 12:29 | RAD ---
PA and lateral chest x-ray compared to similar exam dated August 21, 2019 for shortness of breath. FINDINGS: There is hyperinflation suggestive of COPD. There is cardiomegaly. There is no focal pneumo jimbo infiltrate, pneumothorax, pleural effusion, or evidence of congestive heart failure. Median pike al wires are present. Atherosclerosis is noted. No significant osseous abnormalities. IMPRESSION: 1. COPD and cardiomegaly with no acute cardiopulmonary abnormality. Electronically signed by: Blu Kirby MD (07/01/2020 12:27 PM) [id number]
== END ==
LOC: RAD 11:29
PROVIDERS: ATTEND Family Medicine
DX: J44.9 Chronic obstructive pulmonary disease, unspecified (principal); I51.7 Cardiomegaly; I70.90 Unspecified atherosclerosis
CPT/HCPCS: 71046

== ENCOUNTER → 2021-02-04 | Outpatient (CLI) | payer MEDICARE, OTHER ==
[2020-05-24 15:00] VITALS: BP 126/50
[~2021-02-04] MED LIST changes: +ALLO100T PO; -ISOS30TA4 PO; +ISOS30TA68 PO; +PRAV20TA2 PO
--- NOTE | 2021-02-04 12:49 | PDOC1 ---
INITIAL PAIN CONSULT DATE OF SERVICE: DOS: DATE: 02/04/21 TIME: 12:39 CHIEF COMPLAINT: Chief Complaint: Low back and right lower extremity pain HISTORY OF PRESENT ILLNESS: 85-year-old female presents history of pain low back and left lower extremity for about 8 months not the result of any specific injury or accident that she is aware has been getting worse with time in the low back and the right leg mostly in the back patient reports is worse with walking standing changing positions better with sitting or laying down generally is not awaken her from sleep and she gets significant decrease in pain with sitting from a standing position. Patient reports the pain is constant aching in the back changes during the day worse with activity standing walking changing positions and radiates into the left leg mostly in a posterior lateral aspect of the gluteus and lateral thigh and anterior medial thigh but again much more noticeable in the back patient reports she has done physical therapy she has had previous exercises doing stretching strength exercises from this as well and had home therapy done as well which was helpful as she reports few months ago she was unable to get up from a seated position without significant pain in the therapy has helped significantly in this but the pain is still present her mobility is much improved however. Patient rates her disability rating 0-10 10 being the worst is a 6 with family home responsibilities 7 with recreation 5 with social activity 0 with occupation sexual behavior and life support activities and 1 with self-care activities. Patient have CT scan of the lumbar spine showing degenerative changes throughout with mild spondylolisthesis at L4-5 and L5-S1 facet arthritis L5-S1 without focal disc protrusion or spinal stenosis bulging of the disc at L2-3 without spinal stenosis or foraminal stenosis mild facet arthritis at L2-3 bulging of disc at L3-4 with mild lateral recess narrowing. Patient reports pain generally does not awaken her from sleep at night side effect of bowel bladder control does affect her ability to walk significant she is using a cane in her right hand to ambulate. PAST MEDICAL HISTORY: PMH: Hypertension, COPD, hearing loss, arthritis, hyperlipidemia, coronary artery disease, gastroesophageal reflux, osteopenia PREVIOUS SURGERIES: Past Surgical Hx: Right carotid endarterectomy, appendectomy, cardiac stent placements, coronary artery bypass grafting, ORIF left wrist, right foot bunionectomy, bilateral cataract extractions CURRENT MEDICATIONS: Current Meds: Active Scripts Medications Dose Route/Sig Max Daily Dose Days Date Category Culturelle (Lactobacillus Rhamnosus Gg) 1 Each Cap.sprink 1 Cap PO BID 30 05/24/20 Rx Keflex (Cephalexin) 500 Mg Capsule 2 Cap PO Q12HR 10 05/18/20 Rx [place] 5-325 Tablet (Acetaminophen/Hydrocodone Bitart) 1 Each Tablet 1 Tab PO Q6HRS 4 05/18/20 Rx Colace (Docusate Sodium) 100 Mg Capsule 1 Cap PO BID 7 05/18/20 Rx Zolpidem Tartrate 5 Mg Tablet 1 Tab PO QHS 05/27/17 Reported Pantoprazole Sodium (Pantoprazole Sodium) 40 Mg Tablet.dr 1 Tab PO DAILY 05/27/17 Reported Mucinex Dm Er 600-30 Mg Tablet (Guaifenesin/Dextromethorphan) 1 Each Tab.er.12h 1 Tab PO BID 14 07/09/16 Rx Advair 250-50 Diskus (Fluticasone/Salmeterol) 1 Each Disk.w.dev 1 Puff IH BID 06/26/16 Reported Requip (Ropinirole Hcl) 0.5 Mg Tablet 1 Tab PO QHS 06/26/16 Reported Isosorbide Mononitrate Er (Isosorbide Mononitrate) 30 Mg Tab.er.24h 1 Tab PO DAILY 05/08/16 Rx Duoneb 0.5-3(2.5) Mg/3 Ml (Albuterol/Ipratropium) 3 Ml Ampul.neb 3 Ml NEB QID 05/08/16 Rx Pravastatin Sodium 40 Mg Tablet 1 Tab PO HS 05/07/16 Reported Potassium Chloride 20 Meq Tab.er.prt 1 Tab PO DAILY 08/20/14 Reported Lasix (Furosemide) 40 Mg Tablet 20 Mg PO DAILY 08/20/14 Reported Pacerone (Amiodarone Hcl) 200 Mg Tablet 200 Mg PO DAILY07 08/16/14 Reported Metoprolol Tartrate 25 Mg Tablet 12.5 Tab PO BID 05/21/14 Reported Plavix (Clopidogrel Bisulfate) 75 Mg Tablet 75 Mg PO DAILYWBKFT 04/19/14 Rx Aspirin 81 Mg Tab.chew 1 Tab PO DAILY 04/16/14 Reported Plaquenil (Hydroxychloroquine Sulfate) 200 Mg Tablet 200 Mg PO BID 04/16/14 Reported ALLERGIES; Allergies: Coded Allergies: meperidine (Verified Allergy, Intermediate, 05/23/20) DALTON Inhibitors (Verified Adverse Reaction, Mild, COUGH, 05/07/16) FAMILY HISTORY: Family Hx: Cancer and diabetes SOCIAL HISTORY: Social Hx: Patient rarely drinks alcohol does not smoke not use any illegal illicit recreational drugs is lives locally in [facility] and is currently retired. REVIEW OF SYSTEMS: ROS: Positive for those items mentioned in history of present illness, all systems are reviewed, otherwise negative ,and are complete full and well-documented on patient's chart. PHYSICAL EXAM: VS: Blood pressure is 123/78 pulse 79 respirations 20 temperature is 98.7 F weight is 134 pounds PE: PHYSICAL EXAMINATION: GENERAL: The patient is awake, alert, oriented, appropriate, very pleasant in demeanor HEENT: Shows normocephalic, atraumatic. Extraocular movements are intact and symmetrical. Oral cavity: Mucous membranes moist and pink. NECK: Shows anterior throat supple without palpable lymphadenopathy noted. Swallow reflex symmetrical. CHEST: Shows normal on inspection. Breath sounds are clear bilaterally, no rales rhonchi or wheezes auscultated. HEART: Shows S1, S2 clear. No murmurs auscultated. ABDOMEN: Soft, nontender, nondistended. No palpable organomegaly is noted. No rebound or guarding demonstrated. BACK: Shows spine grossly in the midline, obese. Normal-appearing cervical lordotic curvature. There is increased thoracic kyphosis, some flattening of the lumbar lordotic curvature. Lumbar paraspinous muscles show symmetrical on inspection, on palpation shows some moderate tenderness diffusely throughout the upper, middle and lower distribution of the paraspinous muscles bilaterally and also into the lower thoracic paraspinous musculature, firm and tender, but without specific trigger points, without radiation of pain. The patient has good rotational motion of the lumbar spine, both laterally as well as extension and flexion without significant difficulty. No tenderness over the spinous processes, sacrum or sacroiliac regions. EXTREMITIES: Lower extremities show deep tendon reflexes 1+ in the patellar and tendo calcaneus tendons. Motor exam is 5 on a scale of 5 with right dorsiflexion, extension, quadriceps and hamstring flexion and /5 on the left. Peripheral pulses are 1 posterior tibial. No peripheral edema is noted bilaterally. Lower extremities are warm and dry to touch, equal in color and appearance. Straight leg raise noted to be negative bilaterally. Gaenslen's and Geronimo's maneuvers are negative as well. The patient is able to stand, needs help getting up from a seated position using the arms of her chair, walki ng with a significantly favoring gait favoring the left lower extremity, and using a cane in her right hand. SKIN: Shows warm and dry, good turgor. No edema. No sores, rashes or bruising throughout. IMPRESSION: Impression: 85-year-old female with proximate 8-month history low back left lower extremity pain and radicular fashion. CT scan lumbar spine as noted Hypertension COPD Hearing loss Arthritis Coronary artery disease on anticoagulation therapy next Plan: Options were discussed with the patient, including physical therapies medical management and interventional techniques. Patient would like to pursue interventional techniques that she is done physical therapy and oral analgesics, without significant decrease in pain but improvement in mobility. We discussed a lumbar epidural steroid injection using description as well as anatomical models to describe the procedure. We will check with patient's glass cleaner first to confirm that it is cleared for her to hold her Plavix for 7 days prior to procedure. If deemed safe and appropriate we will have her return after holding the medication and plan on lumbar epidural steroid injection with fluoroscopic guidance at that time. PRUDENCIO VARELA MD Feb 04, 2021 12:48
== END ==
LOC: PNCL 10:29
PROVIDERS: ATTEND Anesthesiology
DX: M79.661 Pain in right lower leg (principal); M54.5 Low back pain; I10 Essential (primary) hypertension; J44.9 Chronic obstructive pulmonary disease, unspecified; E78.5 Hyperlipidemia, unspecified; I25.10 Atherosclerotic heart disease of native coronary artery without angina pectoris; M19.90 Unspecified osteoarthritis, unspecified site; K21.9 Gastro-esophageal reflux disease without esophagitis; Z79.899 Other long term (current) drug therapy; Z95.1 Presence of aortocoronary bypass graft; Z95.5 Presence of coronary angioplasty implant and graft; Z98.41 Cataract extraction status, right eye; Z98.42 Cataract extraction status, left eye; Z98.890 Other specified postprocedural states
CPT/HCPCS: 99214; G0463

== ENCOUNTER → 2021-02-20 | Outpatient (CLI) | payer MEDICARE, OTHER ==
[2020-05-24 15:00] VITALS: BP 126/50
[~2021-02-20] MED LIST changes: +IOHEXOL 180 MG/ML 10 ML VIAL. ONE; +methylPREDNISolone ACETATE 80 MG/ML VIAL. ONE
--- NOTE | 2021-02-20 10:45 | PDOC ---
Progress Note - Pain Clinic Date of Service: DOS: DATE: 02/20/21 TIME: 10:43 Diagnosis: Dx: Lumbar radiculopathy with lumbar degenerative disease and lumbar spondylosis History or Present Illness: HPI: 85-year-old female returns for follow-up status post initial evaluation and clearance with her overnight houseperson and is now held her Plavix for 8days patient reports still significant pain in the low back and specifically in the right lower extremity posterior gluteus posterior lateral thigh lateral anterior thigh anteromedial thigh into the ankles patient reports is an 8 on scale 10 is worse over the past week 7 on average/and is a 4 today patient ports aching on and off in intensity worse with walking standing better with sitting or laying down generally is not awaken her from sleep and she can sit down and relieve the pain fairly quickly when she sits. Patient reports when she gets back up about 15 minutes later the pain is back when she is standing or walking. Patient reports no bowel or bladder incontinence. Physical Exam: VS: Blood pressure is 115/60 pulse 79 respirations 18 temperature 97.6 F weight 135 pounds PE: PHYSICAL EXAMINATION: GENERAL: The patient is awake, alert, oriented, appropriate, very pleasant in demeanor HEENT: Shows normocephalic, atraumatic. Extraocular movements are intact and symmetrical. Oral cavity: Mucous membranes moist and pink. NECK: Shows anterior throat supple without palpable lymphadenopathy noted. Swallow reflex symmetrical. CHEST: Shows normal on inspection. Breath sounds are clear bilaterally, no rales rhonchi wheezes auscultated. HEART: Shows S1, S2 clear. No murmurs auscultated. ABDOMEN: Soft, nontender, nondistended. No palpable organomegaly is noted. BACK: Shows spine grossly in the midline. Normal-appearing cervical lordotic curvature. There is increased thoracic kyphosis, some flattening of the lumbar lordotic curvature. Lumbar paraspinous muscles show symmetrical on inspection, on palpation shows some moderate tenderness diffusely throughout the upper, middle and lower distribution of the paraspinous muscles, but without specific trigger points, without radiation of pain. The patient has good rotational motion of the lumbar spine, both laterally as well as extension and flexion without significant difficulty. EXTREMITIES: Lower extremities show deep tendon reflexes 1+ in the patellar and tendo calcaneus tendons. Motor exam is 4 on a scale of 5 with right dorsiflexion, extension, quadriceps and hamstring flexion and []/5 on the left. Peripheral pulses are 1+ posterior tibial. No peripheral edema is noted bilaterally. Lower extremities are warm and dry to touch, equal in color and appearance. SKIN: Shows warm and dry, good turgor. No edema. No sores, rashes or bruising throughout. Procedure: Procedure: Options were discussed with the patient. Patient chart was reviewed as her current medication regimen updated current review of systems updated today as well. We will proceed with a lumbar epidural steroid injection today with fluoroscopic guidance risks were discussed including but not limited to: Bleeding, infection, possibility of epidural hematoma and subsequent neurological compromise, dural puncture, headaches, spinal cord and/or nerve damage, side effects of steroid medication, and poor results regarding pain control. Patient understands and wished to proceed. Patient will return to clinic in approximate 3 weeks for follow-up, was counseled as return appointment, activity level, and side effects to be aware of. Patient will restart Plavix tomorrow February 21 Medication Injected: Med Injected: Procedure is lumbar epidural steroid injection under local anesthetic using sterile prep and drape at the L4-5 level using C-arm fluoroscopic guidance in both AP and lateral views medications injected is 120 mg Depo-Medrol +10mL p reservative-free normal saline and 2 mL contrast- condition at discharge is stable patient tolerated procedure well had no complications. Condition at Discharge: Condition at Discharge: Condition at discharge stable, patient tolerated procedure well had no complications. PRUDENCIO VARELA MD Feb 20, 2021 10:45
--- NOTE | 2021-02-20 10:46 | PDOC4 ---
Procedure Note: ICD 10 Code: ICD 10 Code: M54.16 M51.36 7.816 Procedure Note: Patient was consented for lumbar epidural steroid injection with fluoroscopic guidance. Risks were discussed including but not limited to: Bleeding, infection, possibility of epidural hematoma and subsequent neurological compromise, dural puncture, headaches, spinal cord and/or nerve damage, side effects of steroid medication, and poor results regarding pain control. Patient understands and wished to proceed. Procedure is lumbar epidural steroid injection under local anesthetic using st erile prep and drape at the L4-5 level using C-arm fluoroscopic guidance in both AP and lateral views medications injected is 120 mg Depo-Medrol +10mL preservative-free normal saline and 2 mL contrast- condition at discharge is stable patient tolerated procedure well had no complications. PRUDENCIO VARELA MD Feb 20, 2021 10:46
== END ==
LOC: PNCL 10:07
PROVIDERS: ATTEND Anesthesiology
DX: M51.16 Intervertebral disc disorders with radiculopathy, lumbar region (principal); M47.816 Spondylosis without myelopathy or radiculopathy, lumbar region
CPT/HCPCS: 62323; J1040; Q9965

== ENCOUNTER → 2021-02-26 | Outpatient (CLI) | payer MEDICARE, OTHER ==
[2020-05-24 15:00] VITALS: BP 126/50
[~2021-02-26] MED LIST changes: -IOHEXOL 180 MG/ML 10 ML VIAL. ONE; -methylPREDNISolone ACETATE 80 MG/ML VIAL. ONE
--- NOTE | 2021-02-27 17:23 | RAD ---
DATE: 02/26/2021 EXAM: MAMMO SUJEY SCREENING BILATERAL HISTORY: Screening COMPARISON: 02/21/2020, 12/28/2017, 12/24/2016 This study was interpreted with the benefit of Computerized Aided Detection (CAD). Breast Density: SCATTERED The breast parenchyma shows scattered fibroglandular densities. Breast parenchyma level B. FINDINGS: No mass, suspicious calcification, or architectural distortion in either breast. There are 2 biopsy clips in the right breast. IMPRESSION: No evidence of malignancy. BI-RADS CATEGORY: 1 NEGATIVE RECOMMENDED FOLLOW-UP: 12M 12 MONTH FOLLOW-UP PQRS compliance statement: Patient information was entered into a reminder system with a target due date for the next mammogram. Mammography is a sensitive method for finding small breast cancers, but it does not detect them all and is not a substitute for careful clinical examination. A negative mammogram does not negate a clinically suspicious finding and should not result in delay in biopsying a clinically suspicious abnormality. "Our facility is accredited by the [employer] Mammography Program."
== END ==
LOC: MAMMO 10:07
PROVIDERS: ATTEND Family Medicine
DX: Z12.31 Encounter for screening mammogram for malignant neoplasm of breast (principal)
CPT/HCPCS: 77063; 77067

== ENCOUNTER → 2021-03-13 | Outpatient (CLI) | payer MEDICARE, OTHER ==
[2020-05-24 15:00] VITALS: BP 126/50
[~2021-03-13] MED LIST changes: +IOHEXOL 180 MG/ML 10 ML VIAL. ONE; +methylPREDNISolone ACETATE 80 MG/ML VIAL. ONE
--- NOTE | 2021-03-13 10:37 | PDOC ---
Progress Note - Pain Clinic Date of Service: DOS: DATE: 03/13/21 TIME: 10:33 Diagnosis: Dx: Lumbar radiculopathy with lumbar degenerative disc disease and lumbar spondylosis History or Present Illness: HPI: 85-year-old female returns for follow-up status post lumbar epidural steroid injection x1. Patient reports about 80% improvement for the first 3 weeks and the pain began to return a few days ago with pain in the low back and now new pain in the left lower extremity as well as the right lower extremity previously was only on the right side in the posterior gluteus lateral thigh anterior thigh medial thigh now is in both of the soles of her feet with pain and numbness in the feet as well patient reported aching in the back can be constant with numbness and tingling shooting pain into the lower extremities rated as a 7 on a scale of 10 at its worst over the past week 5 on average 4 to sleep is a 5 today patient reports the left leg is now becoming more noticeable but not as painful as the right although for the first few weeks patient was doing much better increased distance walking doing household activities travel with greater ease and comfort is sleeping better continues to sleep well at night generally is not bothered her when she is laying down or sitting, but much worse with standing walking or standing in 1 position. Patient reports no bowel or bladder incontinence. Patient has held her Plavix now for 7 days. Physical Exam: VS: Blood pressure is 131/68 pulse 77 respirations 18 temperature 97.3 F height 5 feet 8 inches weight is 131 pounds. PE: PHYSICAL EXAMINATION: GENERAL: The patient is awake, alert, oriented, appropriate, very pleasant in demeanor. HEENT: Shows normocephalic, atraumatic. Extraocular movements are intact and symmetrical. Oral cavity: Mucous membranes moist and pink. NECK: Shows anterior throat supple without palpable lymphadenopathy noted. Swallow reflex symmetrical. CHEST: Shows normal on inspection. Breath sounds are clear bilaterally, distant but no rales or rhonchi. HEART: Shows S1, S2 clear. No murmurs auscultated. ABDOMEN: Soft, nontender, nondistended, obese. No palpable organomegaly is noted. BACK: Shows spine grossly in the midline. Normal-appearing cervical lordotic curvature. There is increased thoracic kyphosis, some flattening of the lumbar lordotic curvature. Lumbar paraspinous muscles show symmetrical on inspection, on palpation shows some moderate tenderness diffusely throughout the upper, middle and lower distribution of the paraspinous muscles without specific trigger points, without radiation of pain. The patient has good rotational motion of the lumbar spine, both laterally as well as extension and flexion without significant difficulty. No tenderness over the spinous processes, sacrum or sacroiliac regions. EXTREMITIES: Lower extremities show deep tendon reflexes 1 in the patellar and t endo calcaneus tendons. Motor exam is 4 on a scale of 5 with right dorsiflexion, extension, quadriceps and hamstring flexion and 5/5 on the left. Peripheral pulses are 1+ posterior tibial. No peripheral edema is noted bilaterally. Lower extremities are warm and dry to touch, equal in color and appearance. SKIN: Shows warm and dry, good turgor. No edema. No sores, rashes or bruising throughout. Procedure: Procedure: Options discussed with the patient. Patient chart was reviewed as her current medication regimen updated current review of systems updated today as well. We will proceed with a lumbar epidural steroid injection today with fluoroscopic guidance. Risks were discussed including but not limited to: Bleeding, infection, possibility of epidural hematoma and subsequent neurological compromise, dural puncture, headaches, spinal cord and/or nerve damage, side effects of steroid medication, and poor results regarding pain control. Patient understands and wished to proceed. Patient will return to the clinic in approximate 3 weeks for follow-up, was counseled as return appointment, activity level, and side effects to be aware of. Patient will restart her Plavix tomorrow March 14, 2021. Medication Injected: Med Injected: Procedure is lumbar epidural steroid injection under local anesthetic using sterile prep and drape at the L4-5 level using C-arm fluoroscopic guidance in both AP and lateral views medications injected is 120 mg Depo-Medrol +10mL preservative-free normal saline and 2 mL contrast- condition at discharge is stable patient tolerated procedure well had no complications. Condition at Discharge: Condition at Discharge: Condition at discharge is stable, paced tolerated the procedure well and had no complications. PRUDENCIO VARELA MD Mar 13, 2021 10:37
--- NOTE | 2021-03-13 10:38 | PDOC4 ---
Procedure Note: ICD 10 Code: ICD 10 Code: M54.16 M51.36 7.816 Procedure Note: Patient was consented for lumbar epidural steroid injection with fluoroscopic guidance. Risks were discussed including but not limited to: Bleeding, infection, possibility of epidural hematoma and subsequent neurological compromise, dural puncture, headaches, spinal cord and/or nerve damage, side effects of steroid medication, and poor results regarding pain control. Patient understands and wished to proceed. Procedure is lumbar epidural steroid injection under local anesthetic using st erile prep and drape at the L4-5 level using C-arm fluoroscopic guidance in both AP and lateral views medications injected is 120 mg Depo-Medrol +10mL preservative-free normal saline and 2 mL contrast- condition at discharge is stable patient tolerated procedure well had no complications. PRUDENCIO VARELA MD Mar 13, 2021 10:37
== END | disposition home or self-care (01) ==
LOC: PNCL 09:58
PROVIDERS: ATTEND Anesthesiology
DX: M51.16 Intervertebral disc disorders with radiculopathy, lumbar region (principal); M47.26 Other spondylosis with radiculopathy, lumbar region; I11.0 Hypertensive heart disease with heart failure; I50.9 Heart failure, unspecified; I25.10 Atherosclerotic heart disease of native coronary artery without angina pectoris; E78.00 Pure hypercholesterolemia, unspecified; J43.9 Emphysema, unspecified; K21.9 Gastro-esophageal reflux disease without esophagitis; M19.90 Unspecified osteoarthritis, unspecified site; Z85.828 Personal history of other malignant neoplasm of skin; Z79.899 Other long term (current) drug therapy; Z98.890 Other specified postprocedural states; Z87.891 Personal history of nicotine dependence; Z79.82 Long term (current) use of aspirin; Z88.8 Allergy status to other drugs, medicaments and biological substances; Z82.49 Family history of ischemic heart disease and other diseases of the circulatory system; Z83.3 Family history of diabetes mellitus
CPT/HCPCS: 62323; J1040; Q9965

== ENCOUNTER → 2021-05-05 | Outpatient (CLI) | payer MEDICARE, OTHER ==
[2020-05-24 15:00] VITALS: BP 126/50
[~2021-05-05] MED LIST changes: +AMIO200T53 PO; -AMIO200T6 PO; -IOHEXOL 180 MG/ML 10 ML VIAL. ONE; +REGADENOSON 0.4 MG/5 ML DISP.SYRIN. IV ONE; -methylPREDNISolone ACETATE 80 MG/ML VIAL. ONE
--- NOTE | 2021-05-05 15:56 | RAD ---
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 Informed consent was witnessed. Dionisio eout was entered into [employer]. History and Stress Test performed by RT Flores (R) (N) Pharm. Details Pharmacologic stress testing was performed using 0.4mg per 5ml of regadenoson given intravenously ove r 7-10 seconds. Stress Symptoms No chest pain or symptoms. POST EXERCISE Reason for Termination: Infusion complete Max HR: 87 bpm Max Blood Pressure: 146/61mmHg Blood Pressure response to exercise: Normal blood pressure response during stress. Heart Rate response to exercise: normal response Chest Pain: No. Arrhythmia: No. ST Change: No. INTERPRETATION Stress EKG Conclusion: No evidence of stress induced EKG changes. Imaging Protocol IMAGE PROTOCOL: Rest Tc-99m/stress Tc-99m 1 day Rest: Stress: Viability: Radiopharm.Tc99m [id number] Sestamibi Dose10.5mCi 30mCi Duration 13min. 13min. Img Date 05/05/2021 05/05/2021 Inj-Img Utms52xik. 60min. Rest Admin Site:IV - Right AntecubitalAdministrator:RT Flores (R)(N) Stress Admin Site: IV - Right AntecubitalAdministrator: GERSON NunezTCJong, ARRT (R)(N) STRESS DATA End Diast. Vol.41.0mlLVEDV index BSA24.0ml End Syst. Vol.21.0mlLVESV index BSA12.0ml Myocardial Mass85.0gEject. Oezqkdft18.0% Stress Scores Regional WT0.00Summed WT16.00 Regional WM1.00Summed WM23.00 LV Perfusion There is a moderate to large size basal to mid anteroseptal, anterior and anterolateral fixed defect suggestive of prior infarct without any significant ischemia or viability. There is also a moderate to large size basal to mid inferolateral fixed defect suggestive of prior infarct without any signifi cant ischemia or viability. Wall Motion Mild LV dysfunction with ejection fraction of 50%. LV Perf. Quant 17 Seg. SSS22.00 17 Seg. SRS19.00 17 Seg. SDS4.00 Stress Defect Extent (% LAD)24.40Rest Defect Extent (% LAD)28.80Rev. Defect Extent (% LAD)3.10 Stress Defect Extent (% LCX) 75.00Rest Defect Extent (% LCX)48.80Rev. Defect Extent (% LCX)65.00 Stress Defect Extent (% RCA)42.20Rest Defect Extent (% RCA)37.80Rev. Defect Extent (% RCA)8.90 Stress Defect Extent (% ARASH)41.10Rest Defect Extent (% ARASH)34.80Rev. Defect Extent (% ARASH)20.40 Conclusion 1. No evidence of stress-induced EKG changes 2. Moderate to large size fixed basal to mid anterior and inferolateral defect suggestive of prior in farct without any significant viability. 3. Mild LV dysfunction, EF 50% 4. Moderate to high risk for future cardiovascular events Signed by : Erlin River, Electronically Approved : 05/05/2021 15:56:03
== END ==
LOC: NM 10:07
PROVIDERS: ATTEND Internal Medicine Cardiovascular Disease
DX: I25.10 Atherosclerotic heart disease of native coronary artery without angina pectoris (principal); I51.9 Heart disease, unspecified
CPT/HCPCS: 78452; 93017; A9500; J2785